=== PATIENT | female | born 1965 | race Caucasian/White ===

== ENCOUNTER 2017-11-23 06:41 | Emergency (ER) | payer OTHER ==
[2017-11-23] MEDS ORDERED: CEFTRIAXONE 250 MG/VIAL ONE (08:37)
[2017-11-23] MEDS ORDERED: AZITHROMYCIN 1 GM PACKET ONE (08:38)
[2017-11-23] MEDS ORDERED: metroNIDAZOLE 500 MG TABLET ONE (08:38)
[2017-11-23 09:41] LABS: Barbiturates NEGATIVE; Benzodiazepines NEGATIVE; Cocaine NEGATIVE; Opiates POSITIVE
[2017-11-23 09:47] LABS: METHAMPHETAM POSITIVE; Phencyclidine ND; THC Cannibis ND
[2017-11-23 09:48] LABS: Urine Blood NEGATIVE (NEG); Urine Glucose NEGATIVE (NEG); Urine Protein NEGATIVE (NEG); Urine pH 6.5 (5.0-7.0)
--- NOTE | 2017-11-23 09:50 | RAD REPORT ---
EXAM DESCRIPTION: Jeramie Single View11/23/2017 8:52 am CLINICAL HISTORY: Chest pain COMPARISON: none FINDINGS: The lungs appear clear of acute infiltrate. The heart is normal size IMPRESSION: No acute abnormalities displayed
[2017-11-23 10:26] LABS: Glucose Level 92 mg/dL (65-120)
[2017-11-23 10:29] LABS: Albumin 3.8 g/dL (3.2-5.5); Alkaline Phosphatase 99 IU/L (42-121); BUN Blood Urea Nitrogen 11 mg/dL (6-20); Bilirubin Total 1.1 mg/dL (0.3-1.2); Protein, Total 7.8 g/dL (6.0-8.3)
[2017-11-23 10:37] LABS: Absolute Lymphocytes (CBC) 2.2 K/uL (0.7-4.9); Absolute Monocytes 0.9 K/uL (0.1-1.3); Absolute Neutrophil 6.7 K/uL (1.8-8.0); Basophils % 0.7 % (0-1.3); Eosinophils % 1.1 % (0-4.4); Hematocrit 34.7 % (36.0-45.0); Lymphocytes % 22.1 % (15.3-44.8); MCH 31.6 pg (27.0-35.0); MPV 8.2 fL (7.6-11.3); Monocytes % 9.2 % (3.3-12.3); RBC Red Blood Cell Count 3.77 M/uL (3.86-4.86)
[2017-11-23 10:41] LABS: ALT/SGPT 34 IU/L (10-60); AST/SGOT 40 IU/L (10-42); Alcohol Serum/Plasma < 10 mg/dl; Bicarbonate 19 mEq/L (21-31); Sodium Level 139 mEq/L (135-145)
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
[2017-11-23] MEDS ORDERED: WATER FOR INJ,STERILE 10 ML ONE (11:18)
== END 2017-11-23 14:12 | disposition home or self-care (01) ==
LOC: ER 06:41
DX: Z04.41 Encounter for examination and observation following alleged adult rape (principal); R89.2 Abnormal level of other drugs, medicaments and biological substances in specimens from other organs, systems and tissues; J44.9 Chronic obstructive pulmonary disease, unspecified; Z88.0 Allergy status to penicillin; Z91.09 Other allergy status, other than to drugs and biological substances
CPT/HCPCS: 36415; 51702; 71045; 80053; 80307 ×7; 80320; 81003; 85025; 96372; 99285; J0696

== ENCOUNTER 2018-06-29 19:39 | Emergency (ER) | payer OTHER ==
--- OUTSIDE RECORDS SUMMARY | 2018-06-29 19:42 | XMS REPORT | Clinical Summary ---
:1965 Author Organization [facility] Address [address] [place] [address] Care Team Providers Name Role Phone Neftali Patiño MD Primary Care Provider Allergies Active Allergy Reactions Severity Noted Date Comments Zolpidem 01/07/2017 Benzocaine Anaphylaxis High 01/07/2017 Meperidine Rash Low 01/07/2017 Hydromorphone Rash Low 01/07/2017 Iodine Anaphylaxis High 01/07/2017 Penicillin G 01/07/2017 Benzonatate Anaphylaxis High 01/07/2017 Medications Medication Sig Dispensed Refills Start Date End Date Status metFORMIN Take 500 mg by 3 12/21/2016 Active (GLUCOPHAGE) 500 mg mouth daily with tablet breakfast. rosuvastatin Take 1 tablet in 3 11/09/2016 Active (CRESTOR) 20 MG the morning. tablet INCRUSE ELLIPTA INHALE 1 UNIT 3 11/30/2016 Active 62.5 mcg/actuation ONCE DAILY blister with device fluticasone-vilante Inhale 1 0 Active rol (BREO ELLIPTA) inhalations 200-25 mcg/dose daily. blister with device powder for inhalation ibuprofen Take 800 mg by 0 Active (ADVIL,MOTRIN) 800 mouth every 6 MG tablet (six) hours. ALBUTEROL SULFATE Inhale 3 mL 3 0 Active INHL (three) times a day. Follow up on strength FLUoxetine (PROzac) Take 20 mg by 0 Active 20 MG capsule mouth daily. lacosamide (VIMPAT) Take 100 mg by 0 Active 100 mg tablet mouth 2 (two) times a day. pantoprazole Take 40 mg by 0 Active (PROTONIX) 40 MG EC mouth daily. tablet divalproex TAKE 1 TABLET BY 1 12/12/2016 Discontinued (DEPAKOTE) 500 MG MOUTH TWICE 8 24 hr tablet DAILY fluticasone 2 sprays by Each 3 12/06/2016 Discontinued (FLONASE) 50 Nare route once 8 mcg/actuation nasal daily. spray ipratropium USE 2 SPRAYS IN 1 11/11/2016 Discontinued (ATROVENT) 0.06 % EACH NOSTRIL 8 nasal spray ONCE A DAY ondansetron ODT Take 8 mg by 0 Discontinued (ZOFRAN-ODT) 8 MG mouth every 8 8 disintegrating (eight) hours as tablet needed for nausea or vomiting. FLUoxetine (PROzac) Take 20 mg by 0 Discontinued 20 MG capsule mouth daily. 8 traZODone (DESYREL) Take 50 mg by 0 Discontinued 50 MG tablet mouth nightly as 8 needed for sleep. acetaminophen-codei Take 1 tablet by 0 Discontinued ne (TYLENOL WITH mouth every 4 8 CODEINE #3) 300-30 (four) hours as mg per tablet needed for moderate pain. traMADol (ULTRAM) Take 50 mg by 0 Discontinued 50 mg tablet mouth every 6 8 (six) hours as needed for moderate pain. cephalexin (KEFLEX) Take 500 mg by 0 Discontinued 500 MG capsule mouth 3 (three) 8 times a day. B complex-vitamin Take 1 tablet by 30 tablet 0 09/20/2017 C-folic acid mouth daily for 8 (FOLBEE PLUS 5 MG) 30 days. 5 mg tablet per tablet Active Problems Problem Noted Date Seizure 09/18/2017 Syncope and collapse 02/24/2017 Small bowel obstruction 01/07/2017 Encounters Date Type Specialty Care Team Description 09/18/2017 - Emergency General Internal Zachary Telles Seizure (Primary Dx); 09/20/2017 Medicine MD Josefina Syncope and collapse Raghavendra Alva MD Sodhi, Nidhi, MD after 06/28/2017 Family History Medical History Relation Name Comments Diabetes Father Heart disease Father Hyperlipidemia Father Hypertension Father COPD Mother Lung cancer Mother Relation Name Status Comments Father Mother Social History Tobacco Use Types Packs/Day Years Used Date Never Smoker Alcohol Use Drinks/Week oz/Week Comments No Sex Assigned at Date Recorded Not on file Job Start Date Occupation Industry Not on file Not on file Not on file Travel History Travel Start Travel End No recent travel history available. Last Filed Vital Signs Vital Sign Reading Time Taken Blood Pressure 112/71 09/20/2017 11:03 AM [employer] Pulse 66 09/20/2017 11:03 AM [employer] Temperature 36.7 C (98.1 F) 09/20/2017 11:03 AM [employer] Respiratory Rate 18 09/20/2017 11:03 AM [employer] Oxygen Saturation 95% 09/20/2017 11:03 AM [employer] Inhaled Oxygen Concentration - - Weight 86.2 kg (190 lb) 09/18/2017 5:29 PM [employer] Height 172.7 cm (5' 8") 09/18/2017 7:19 PM [employer] Body Mass Index 28.89 09/18/2017 5:29 PM [employer] Plan of Treatment Health Maintenance Due Date Last Done Comments MMR VACCINES (1 of 1 - Standard 1968 series) VARICELLA VACCINES (1 of 2 - 2-dose 1980 adolescent series) CERVICAL CANCER SCREENING 1988 BREAST CANCER SCREENING 2017 COLON CANCER SCREENING 2017 SHINGRIX VACCINE (1 of 2) 2017 INFLUENZA VACCINE 03/05/2018 HEPATITIS B VACCINES Aged Out No longer eligible based on patient's age to complete this topic IPV VACCINES Aged Out No longer eligible based on patient's age to complete this topic MENINGOCOCCAL VACCINE Aged Out No longer eligible based on patient's age to complete this topic Procedures Procedure Name Priority Date/Time Associated Comments Diagnosis CT HEAD WO CONTRAST Routine 09/19/2017 4:31 Results for this PM [employer] procedure are in the results section. EEG AWAKE/DROWSY LESS Routine 09/19/2017 9:53 Results for this THAN 41 MIN AM [employer] procedure are in the results section. AMMONIA LEVEL STAT 09/19/2017 8:50 Results for this AM [employer] procedure are in the results section. LIPASE LEVEL STAT 09/19/2017 8:50 Results for this AM [employer] procedure are in the results section. AMYLASE LEVEL STAT 09/19/2017 8:50 Results for this AM [employer] procedure are in the results section. LIPID PANEL STAT 09/19/2017 8:50 Results for this AM [employer] procedure are in the results section. HEMOGLOBIN A1C STAT 09/19/2017 8:50 Results for this AM [employer] procedure are in the results section. THYROID STIMULATING STAT 09/19/2017 8:50 Results for this HORMONE AM [employer] procedure are in the results section. VITAMIN B12 LEVEL STAT 09/19/2017 8:50 Results for this AM [employer] procedure are in the results section. MANUAL DIFFERENTIAL Routine 09/19/2017 5:20 Results for this AM [employer] procedure are in the results section. ZZESTIMATED GFR Routine 09/19/2017 5:20 Results for this AM [employer] procedure are in the results section. BASIC METABOLIC PANEL Routine 09/19/2017 5:20 Results for this AM [employer] procedure are in the results section. CBC WITH PLATELET AND Routine 09/19/2017 5:20 Results for this DIFFERENTIAL AM [employer] procedure are in the results section. CT LUMBAR SPINE WO STAT 09/18/2017 9:50 Results for this CONTRAST PM [employer] procedure are in the results section. URINALYSIS SCREEN AND Routine 09/18/2017 8:50 Results for this MICROSCOPY, WITH REFLEX PM [employer] procedure are in TO CULTURE the results section. URINE CULTURE Routine 09/18/2017 8:50 Results for this PM [employer] procedure are in the results section. CT HEAD WO CONTRAST STAT 09/18/2017 7:00 Results for this PM [employer] procedure are in the results section. ZZESTIMATED GFR STAT 09/18/2017 6:15 Results for this PM [employer] procedure are in the results section. COMPREHENSIVE METABOLIC STAT 09/18/2017 6:15 Results for this PANEL PM [employer] procedure are in the results section. HC COMPLETE BLD COUNT STAT 09/18/2017 6:15 Results for this W/AUTO DIFF PM [employer] procedure are in the results section. ECG ED PRELIMINARY Routine 09/18/2017 6:11 Results for this INTERPRETATION PM [employer] procedure are in the results section. ECG 12-LEAD STAT 09/18/2017 5:38 Results for this PM [employer] procedure are in the results section. after 06/28/[address] Head Wo Contrast (09/19/2017 4:31 PM [employer] GEOTECH[employer]ICAL ENG[employer]ER)Only the most recent of2 resultswithin the time period is included. Narrative Performed At EXAMINATION: CT HEAD WO CONTRAST HM [facility]IANT CLINICAL HISTORY: SEIZURES NEW OR PROGRESSIVE COMPARISON:Brain CT dated September 18, 2017. TECHNIQUE: Noncontrast enhanced images of the brain were obtained from the skull base to the vertex. Both soft tissue and bone reconstruction algorithms were performed.CT imaging was performed with iterative reconstruction technique and/or automated exposure control to reduce radiation dose. FINDINGS: There is no evidence of acute intracranial hemorrhage, intracranial mass, mass effect, midline shift or focal extra-axial collection. The hope-white matter differentiation appears preserved. No evidence of a confluent area of acute transcortical ischemia. The ventricles and extra-axial spaces have remained stable in appearance compared to the previous head CT. Beam hardening artifact obscures details at the level of the skull base, including portions of the supraorbital frontal lobes, inferior temporal lobes, brainstem and cerebellum. No acute soft tissue hematoma or laceration. Paranasal sinuses shows no acute air-fluid levels. Mastoid air cells are clear.No skull fractures or aggressive bony lesions. IMPRESSION: No acute intracranial abnormality identified. No significant interval change noted compared to the previous head CT performed September 18, 2017 at approximately 18:49 hours. [id number] Procedure Note Interface, Radiology Results Incoming - 09/19/2017 4:38 PM [employer] EXAMINATION: CT HEAD WO CONTRAST CLINICAL HISTORY: SEIZURES NEW OR PROGRESSIVE COMPARISON: Brain CT dated September 18, 2017. TECHNIQUE: Noncontrast enhanced images of the brain were obtained from the skull base to the vertex. Both soft tissue and bone reconstruction algorithms were performed. CT imaging was performed with iterative reconstruction technique and/or automated exposure control to reduce radiation dose. FINDINGS: There is no evidence of acute intracranial hemorrhage, intracranial mass, mass effect, midline shift or focal extra-axial collection. The hope-white matter differentiation appears preserved. No evidence of a confluent area of acute transcortical ischemia. The ventricles and extra-axial spaces have remained stable in appearance compared to the previous head CT. Beam hardening artifact obscures details at the level of the skull base, including portions of the supraorbital frontal lobes, inferior temporal lobes, brainstem and cerebellum. No acute soft tissue hematoma or laceration. Paranasal sinuses shows no acute air-fluid levels. Mastoid air cells are clear. No skull fractures or aggressive bony lesions. IMPRESSION: No acute intracranial abnormality identified. No significant interval change noted compared to the previous head CT performed September 18, 2017 at approximately 18:49 hours. [id number] Performing Organization Address City/State/Zipcode Phone Number [facility] [address] [place] [address] EEG (routine) (09/19/2017 9:53 AM CIVIL GEOTECHNICAL ENGINEER) Narrative Performed At Date of Study Completion: September 19, 2017 [facility] DEPARTMENT OF PATHOLOGY AND Date of Interpretation: September 19, 2017 GENOMIC MEDICINE Ordering Provider: Dr. Megan Castro Inpatient Electroencephalogram Report History: 52-year-old female being treated for seizures. Please evaluate the underlying cerebral activity and rule out interictal epileptiform discharges. Technical Description: The recording was started at 9:36 AM and ended at 9:57 AM on 09/19/2017. It was a digitally recorded multi-montage EEG with 21 electrodes placed according to the International 10/20 system. An EKG strip was recorded continuously. True eye leads were not employed.True temporal leads were not employed. EEG Description: When maximally aroused, the awake background was characterized by a symmetric posterior rhythm maximally measured at 9 to 10 Hz, 20 to 40 microvolts in amplitude that attenuated appropriately to eye opening. Superimposed beta frequency discharges were seen over the bilateral frontal pizarro. The patient becomes drowsy over the course of the recording as evidenced by the dropout of the posterior rhythm and the emergence of a diffuse irregular slow background activity. No definitive interictal epileptiform discharges or electrographic seizures were appreciated. Sleep Recording: Stage II sleep was not recorded. Activation Procedures: Hyperventilation was not attempted. Photic stimulation utilizing flash frequencies ranging from 5 to 30 Hz did not elicit a driving response. EEG Interpretation:This was an abnormal awake and drowsy EEG. 1. Superimposed beta. 2. No paroxysmal discharges were observed. Clinical Correlation: 1. The beta activity is most likely a medication effect (benzodiazepines). 2. There was no definitive evidence of interictal epileptiform discharges, electrographic seizures, or status epilepticus seen over the course of this limited tracing. Performing Organization Address [facility] Phone Number [facility] DEPARTMENT OF PATHOLOGY [address] [place] [address]. [place] [address] AND [facility] Thyroid stimulating hormone (09/19/2017 8:50 AM CIVIL GEOTECH[employer]ICAL ENG[employer]ER) TSH 0.89 0.27 - 4.20 uIU/mL [facility] DEPARTMENT OF PATHOLOGY AND [employer] [facility] Specimen Blood Performing Organization Address [facility] Phone Number [facility] DEPARTMENT OF PATHOLOGY [address] [place] [address] AND [employer] [facility] Lipase level (09/19/2017 8:50 AM CIVIL GEOTECHNICAL ENGINEER) Lipase 29 13 - 60 U/L [facility] DEPARTMENT OF PATHOLOGY AND [employer] [facility] Specimen Blood Performing Organization Address [facility] Phone Number [facility] DEPARTMENT OF PATHOLOGY [address] [place] [phone] AND [facility] Hemoglobin A1c (09/19/2017 8:50 AM CIVIL GEOTECH[employer]ICAL ENGINEER) Hemoglobin A1C 5.2 4.0 - 6.0 % [facility] DEPARTMENT OF PATHOLOGY Comment: AND [employer] MEDICINE Less than 6% - Goal of therapy for Type II Diabetes Less than 7%-Goal of therapy for Type I Diabetes Less than 8%-Acceptable control for Type I or Type II Diabetes Greater than 8%-Unacceptable control; action indicated. ([id number]) Specimen Blood Performing Organization Address City/State/Zipcode Phone Number [facility] DEPARTMENT OF PATHOLOGY [address] [place] [address]. [place] [address] AND [facility] Vitamin B12 level (09/19/2017 8:50 AM CIVIL GEOTECHNICAL ENGINEER) Vitamin B12 386 211 - 946 pg/mL [facility] DEPARTMENT OF PATHOLOGY Comment: AND [employer] MEDICINE Significant overlap exists between normal and deficiency states. However, most patients with deficiencies will have Serum B12 <200 pg/mL. Specimen Serum Performing Organization Address City/State/Zipcode Phone Number [facility] DEPARTMENT OF PATHOLOGY AND [address] [place] [id number] [facility] Amylase level (09/19/2017 8:50 AM CIVIL GEOTECHNICAL ENGINEER) Amylase 33 13 - 73 U/L [facility] DEPARTMENT OF PATHOLOGY AND GENOMIC MEDICINE Specimen Blood Performing Organization Address City/[facility]/Zipcode Phone Number [facility] DEPARTMENT OF PATHOLOGY [address] [place] [address] AND [facility] Ammonia level (09/19/2017 8:50 AM CIVIL GEOTECHNICAL ENGINEER) Ammonia 34 11 - 51 umol/L [facility] DEPARTMENT OF PATHOLOGY AND GENOMIC MEDICINE Specimen Plasma specimen Performing Organization Address City/State/Zipcode Phone Number [facility] DEPARTMENT OF PATHOLOGY [address] [place] [address] AND [employer] [facility] Lipid panel (09/19/2017 8:50 AM CIVIL GEOTECHNICAL ENGINEER) Cholesterol 183 0 - 199 mg/dL [facility] DEPARTMENT OF PATHOLOGY AND GENOMIC MEDICINE Triglycerides 95 0 - 149 mg/dL [facility] DEPARTMENT OF PATHOLOGY AND GENOMIC MEDICINE HDL cholesterol 41 40 - 99,999 [facility] DEPARTMENT OF mg/dL PATHOLOGY AND GENOMIC MEDICINE LDL cholesterol 121 (H) 0 - 99 mg/dL [facility] DEPARTMENT OF PATHOLOGY AND GENOMIC MEDICINE Lipid panel See below [facility] DEPARTMENT OF interpretation Comment: PATHOLOGY AND Total Cholesterol (mg/dL) GENOMIC MEDICINE <200 Desirable 537-245Mkiazxbvkf-wysr >=240High Triglycerides (mg/dL) <150 Normal 505-801Sxjxqbrqkw-mywx 200-499High >=500Very high HDL Cholesterol (mg/dL) <40Low (male) <50Low (female) LDL Cholesterol (mg/dL) <100 Optimal 100-129Near or above optimal 416-181Xcogvcyyoi-pbwi 160-189High >=190Very high Risk Catergories that modify LDL goals. Risk CatergoriesLDL goal (mg/dL) CHD and CHD risk equivalent<100 (10-year risk >20%) Multiple (2+) risk factors <130 (10-year risk=<20%) 0-1 risk factors <160 (<10-year risk) Defining levels of lipids in metabolic syndrome Triglycerides>=150 mg/dL HDL Cholesterol Men<40 mg/dL Women<50 mg/dL Non-HDL cholesterol is a second target for therapy in persons with high triglycerides (>=200 mg/dL) Specimen Blood Performing Organization Address City/State/Zipcode Phone Number [facility] DEPARTMENT OF PATHOLOGY [address] [place] [address] AND [employer] [facility] Estimated GFR (09/19/2017 5:20 AM CIVIL GEOTECHNICAL ENGINEER)Only the most recent of2 resultswithin the time period is included. GFR Non Af Amer 66 mL/min/1.73 m2 [facility] DEPARTMENT OF PATHOLOGY AND GENOMIC MEDICINE GFR Af Amer 80 mL/min/1.73 m2 [facility] DEPARTMENT OF Comment: PATHOLOGY AND GENOMIC Chronic kidney disease: <60 mL/min/1.73m2 MEDICINE Kidney failure: <15 mL/min/1.73m2 The estimated GFR is calculated from the IDMS-traceable Modification of Diet in Renal Disease Equation. The accuracy of the calculation is poor when the creatinine is normal. Calculated values >90 mL/min/1.73m2 are not reported. This equation has not been validated in children (<18 years), women, the elderly (>70 years), or ethnic groups other than Caucasians and Americans. Specimen Plasma specimen Performing Organization Address City/[facility]/Zipcode Phone Number [facility] DEPARTMENT OF PATHOLOGY [address] [place] [address] AND [employer] [facility] Manual differential (09/19/2017 5:20 AM CIVIL GEOTECHNICAL ENGINEER) Manual differential PERFORMED [facility] DEPARTMENT OF PATHOLOGY AND GENOMIC MEDICINE Neutrophils 33.0 (L) 39.0 - 69.0 % [facility] DEPARTMENT OF PATHOLOGY AND GENOMIC MEDICINE Lymphocytes 58.0 (H) 25.0 - 45.0 % [facility] DEPARTMENT OF PATHOLOGY AND GENOMIC MEDICINE Monocytes 6.0 0.0 - 10.0 % [facility] DEPARTMENT OF PATHOLOGY AND GENOMIC MEDICINE Eosinophils 4.0 0.0 - 5.0 % [facility] DEPARTMENT OF PATHOLOGY AND GENOMIC MEDICINE Basophils 0.0 0.0 - 1.0 % [facility] DEPARTMENT OF PATHOLOGY AND GENOMIC MEDICINE Platelet slide review Marcus adequate [facility] DEPARTMENT OF PATHOLOGY AND GENOMIC MEDICINE Anisocytosis Moderate [facility] DEPARTMENT OF PATHOLOGY AND GENOMIC MEDICINE Polychromasia Moderate [facility] DEPARTMENT OF PATHOLOGY AND GENOMIC MEDICINE Ovalocytes Moderate [facility] DEPARTMENT OF PATHOLOGY AND GENOMIC MEDICINE Smudge cells Few [facility] DEPARTMENT OF PATHOLOGY AND GENOMIC MEDICINE Performing Organization Address [facility] Phone Number [facility] DEPARTMENT OF PATHOLOGY [address] [place] [address] CBC with platelet and differential (09/19/2017 5:20 AM CIVIL GEOTECHNICAL ENGINEER)Only the most recent of2 resultswithin the time period is included. WBC 4.8 4.5 - 11.0 k/uL [facility] DEPARTMENT OF PATHOLOGY AND GENOMIC MEDICINE RBC 3.60 (L) 4.20 - 5.50 m/uL [facility] DEPARTMENT OF PATHOLOGY AND GENOMIC MEDICINE HGB 11.5 (L) 12.0 - 16.0 g/dL [facility] DEPARTMENT OF PATHOLOGY AND GENOMIC MEDICINE HCT 33.9 (L) 37.0 - 47.0 % [facility] DEPARTMENT OF PATHOLOGY AND GENOMIC MEDICINE MCV 94.2 82.0 - 100.0 fL [facility] DEPARTMENT OF PATHOLOGY AND GENOMIC MEDICINE MCH 31.9 27.0 - 34.0 pg [facility] DEPARTMENT OF PATHOLOGY AND GENOMIC MEDICINE MCHC 33.9 31.0 - 37.0 g/dL [facility] DEPARTMENT OF PATHOLOGY AND GENOMIC MEDICINE RDW - SD 44.2 37.0 - 55.0 fL [facility] DEPARTMENT OF PATHOLOGY AND GENOMIC MEDICINE MPV 9.9 6.9 - 11.0 fL [facility] DEPARTMENT OF PATHOLOGY AND GENOMIC MEDICINE Platelet count 219 150 - 400 K/uL [facility] DEPARTMENT OF PATHOLOGY AND GENOMIC MEDICINE Nucleated RBC 0.00 /100 WBC [facility] DEPARTMENT OF PATHOLOGY AND GENOMIC MEDICINE Neutrophils 33.0 (L) 39.0 - 69.0 % [facility] DEPARTMENT OF PATHOLOGY AND GENOMIC MEDICINE Lymphocytes 58.0 (H) 25.0 - 45.0 % [facility] DEPARTMENT OF PATHOLOGY AND GENOMIC MEDICINE Monocytes 6.0 0.0 - 10.0 % [facility] DEPARTMENT OF PATHOLOGY AND GENOMIC MEDICINE Eosinophils 4.0 0.0 - 5.0 % [facility] DEPARTMENT OF PATHOLOGY AND GENOMIC MEDICINE Basophils 0.0 0.0 - 1.0 % [facility] DEPARTMENT OF PATHOLOGY AND GENOMIC MEDICINE Specimen Blood Performing Organization Address City/[facility] Phone Number [facility] OF [facility]OLOG[facility] [address] [place] [address] [employer] [facility] Basic metabolic panel (09/19/2017 5:20 AM C[employer]IL GEOTECH[employer]ICAL ENGINEER) Sodium 141 135 - 148 mEq/L [facility] DEPARTMENT OF PATHOLOGY AND GENOMIC MEDICINE Potassium 3.9 3.5 - 5.0 mEq/L [facility] DEPARTMENT OF PATHOLOGY AND GENOMIC MEDICINE Chloride 104 98 - 112 mEq/L [facility] DEPARTMENT OF PATHOLOGY AND GENOMIC MEDICINE CO2 24 24 - 31 mEq/L [facility] DEPARTMENT OF PATHOLOGY AND GENOMIC MEDICINE Anion gap 13 7 - 15 mEq/L [facility] DEPARTMENT OF Comment: PATHOLOGY AND GENOMIC Starting from November , anion gap calculation MEDICINE no longer incorporates potassium. Please note the change. BUN 14 6 - 20 mg/dL [facility] DEPARTMENT OF PATHOLOGY AND GENOMIC MEDICINE Creatinine 0.9 0.5 - 0.9 mg/dL [facility] DEPARTMENT OF PATHOLOGY AND GENOMIC MEDICINE Glucose 92 65 - 99 mg/dL [facility] DEPARTMENT OF PATHOLOGY AND GENOMIC MEDICINE Calcium 9.2 8.3 - 10.2 mg/dL [facility] DEPARTMENT OF PATHOLOGY AND GENOMIC MEDICINE Specimen Plasma specimen Performing Organization Address [facility] Phone Number [facility] [facility] [id number] [place] [address] [employer] [facility] CT Lumbar Spine Wo Contrast (09/18/2017 9:50 PM CIVIL GEOTECHNICAL ENGINEER) Narrative Performed At EXAMINATION: CT LUMBAR SPINE WO CONTRAST RADIANT CLINICAL HISTORY: low back pain s p fall COMPARISON:None TECHNIQUE: Noncontrast enhanced imaging through the lumbar spine was performed with coronal and sagittal reconstructed images. CT scans are performed using radiation dose reduction techniques (iterative reconstruction and/or automated exposure control). Technical factors are evaluated and adjusted to ensure appropriate moderation of exposure. Automated dose management technology is applied to adjust radiation exposure while achieving a diagnostic quality image. FINDINGS: No acute fractures or subluxations. No soft tissue abnormalities are seen. Degenerative changes: There are degenerative disc bulges from L1 through S1, resulting in varying degrees of central stenosis. This is moderate to severe at L1-L2 and L2-L3, and otherwise mild. Additionally, the disc bulge/protrusion at L1-L2 involves and effaces the right lateral recess, probably involving the traversing nerve root. At other levels, the degenerative disc bulge appears to result foraminal stenosis which is mild to moderate. IMPRESSION: No acute osseous abnormality of the lumbar spine. Multilevel degenerative disc changes as described above. Most conspicuously, degenerative disc protrusion at L1-L2 results in moderate/severe central stenosis and appears to efface the right lateral recess. 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 Correlation with lumbar MRI may be of benefit if there are radicular or myelopathic symptoms. [facility]-[id number] Procedure Note [facility], Radiology Results Incoming - 09/18/2017 10:24 PM CIVIL GEOTECHNICAL ENGINEER EXAMINATION: CT LUMBAR SPINE WO CONTRAST CLINICAL HISTORY: low back pain s p fall COMPARISON: None TECHNIQUE: Noncontrast enhanced imaging through the lumbar spine was performed with coronal and sagittal reconstructed images. CT scans are performed using radiation dose reduction techniques (iterative reconstruction and/or automated exposure control). Technical factors are evaluated and adjusted to ensure appropriate moderation of exposure. Automated dose management technology is applied to adjust radiation exposure while achieving a diagnostic quality image. FINDINGS: No acute fractures or subluxations. No soft tissue abnormalities are seen. Degenerative changes: There are degenerative disc bulges from L1 through S1, resulting in varying degrees of central stenosis. This is moderate to severe at L1-L2 and L2-L3, and otherwise mild. Additionally, the disc bulge/protrusion at L1-L2 involves and effaces the right lateral recess, probably involving the traversing nerve root. At other levels, the degenerative disc bulge appears to result foraminal stenosis which is mild to moderate. IMPRESSION: No acute osseous abnormality of the lumbar spine. Multilevel degenerative disc changes as described above. Most conspicuously, degenerative disc protrusion at L1-L2 results in moderate/severe central stenosis and appears to efface the right lateral recess. 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 Correlation with lumbar MRI may be of benefit if there are radicular or myelopathic symptoms. [facility]-[id number] Performing Organization Address City/State/Zipcode Phone Number [facility] [address] [place] [address] Urinalysis screen and microscopy, with reflex to culture (09/18/2017 8:50 PM CIVIL GEOTECHNICAL ENGINEER) Specimen site Clean catch [facility] DEPARTMENT OF PATHOLOGY AND GENOMIC MEDICINE Color, UA Straw [facility] DEPARTMENT OF PATHOLOGY AND GENOMIC MEDICINE Appearance, UA Clear [facility] DEPARTMENT OF PATHOLOGY AND GENOMIC MEDICINE Specific gravity, UA 1.009 1.001 - 1.030 [facility] DEPARTMENT OF PATHOLOGY AND GENOMIC MEDICINE pH, UA 6.0 5.0 - 9.0 [facility] DEPARTMENT OF PATHOLOGY AND GENOMIC MEDICINE Protein, UA Negative Negative [facility] DEPARTMENT OF PATHOLOGY AND GENOMIC MEDICINE Glucose, UA Negative Negative [facility] DEPARTMENT OF PATHOLOGY AND GENOMIC MEDICINE Ketones, UA Negative Negative [facility] DEPARTMENT OF PATHOLOGY AND GENOMIC MEDICINE Bilirubin, UA Negative Negative [facility] DEPARTMENT OF PATHOLOGY AND GENOMIC MEDICINE Blood, UA Negative Negative [facility] DEPARTMENT OF PATHOLOGY AND GENOMIC MEDICINE Nitrite, UA Negative Negative [facility] DEPARTMENT OF PATHOLOGY AND GENOMIC MEDICINE Urobilinogen, UA <2.0 <2.0 E.U./dL [facility] DEPARTMENT OF PATHOLOGY AND GENOMIC MEDICINE Leukocyte esterase, UA Negative Negative [facility] DEPARTMENT OF PATHOLOGY AND GENOMIC MEDICINE Round epithelial cells, UA <1 0 - 5 /HPF [facility] DEPARTMENT OF PATHOLOGY AND GENOMIC MEDICINE WBC, UA <1 0 - 4 /HPF [facility] DEPARTMENT OF PATHOLOGY AND GENOMIC MEDICINE RBC, UA <1 0 - 2 /HPF [facility] DEPARTMENT OF PATHOLOGY AND GENOMIC MEDICINE Bacteria, UA None seen None seen [facility] DEPARTMENT OF PATHOLOGY AND GENOMIC MEDICINE Yeast, UA None seen [facility] DEPARTMENT OF PATHOLOGY AND GENOMIC MEDICINE Yeast with pseudohyphae, UA None seen [facility] DEPARTMENT OF PATHOLOGY AND GENOMIC MEDICINE Specimen Urine Performing Organization Address City/[facility]/Zipcode Phone Number [facility] DEPARTMENT OF PATHOLOGY [address] [place] [address] AND [employer] [facility] Urine culture (09/18/2017 8:50 PM CIVIL GEOTECHNICAL ENGINEER) Urine culture SEE COMMENTComment: Bacteriuria [facility] DEPARTMENT OF PATHOLOGY screen negative. AND GENOMIC MEDICINE Performing Organization Address City/[facility]/Zipcode Phone Number [facility] DEPARTMENT OF PATHOLOGY [address] [place] [address] AND [employer] [facility] Comprehensive metabolic panel (09/18/2017 6:15 PM CIVIL GEOTECHNICAL ENGINEER) Sodium 137 135 - 148 mEq/L [facility] DEPARTMENT OF PATHOLOGY AND GENOMIC MEDICINE Potassium 4.0 3.5 - 5.0 mEq/L [facility] DEPARTMENT OF PATHOLOGY AND GENOMIC MEDICINE Chloride 99 98 - 112 mEq/L [facility] DEPARTMENT OF PATHOLOGY AND GENOMIC MEDICINE CO2 24 24 - 31 mEq/L [facility] DEPARTMENT OF PATHOLOGY AND GENOMIC MEDICINE Anion gap 14 7 - 15 mEq/L [facility] DEPARTMENT OF Comment: PATHOLOGY AND GENOMIC Starting from November , anion gap calculation MEDICINE no longer incorporates potassium. Please note the change. BUN 16 6 - 20 mg/dL [facility] DEPARTMENT OF PATHOLOGY AND GENOMIC MEDICINE Creatinine 1.1 (H) 0.5 - 0.9 mg/dL [facility] DEPARTMENT OF PATHOLOGY AND GENOMIC MEDICINE Glucose 92 65 - 99 mg/dL [facility] DEPARTMENT OF PATHOLOGY AND GENOMIC MEDICINE Calcium 9.7 8.3 - 10.2 mg/dL [facility] DEPARTMENT OF PATHOLOGY AND GENOMIC MEDICINE Protein 7.5 6.3 - 8.3 g/dL [facility] DEPARTMENT OF PATHOLOGY AND GENOMIC MEDICINE Albumin 4.3 3.5 - 5.0 g/dL [facility] DEPARTMENT OF PATHOLOGY AND GENOMIC MEDICINE A/G ratio 1.3 0.7 - 3.8 [facility] DEPARTMENT OF PATHOLOGY AND GENOMIC MEDICINE Alkaline phosphatase 63 35 - 104 U/L [facility] DEPARTMENT OF PATHOLOGY AND GENOMIC MEDICINE AST 26 10 - 35 U/L [facility] DEPARTMENT OF PATHOLOGY AND GENOMIC MEDICINE ALT 13 5 - 50 U/L [facility] DEPARTMENT OF PATHOLOGY AND GENOMIC MEDICINE Total bilirubin 0.3 0.2 - 1.2 mg/dL [facility] DEPARTMENT OF PATHOLOGY AND GENOMIC MEDICINE Specimen Plasma specimen Performing Organization Address City/State/Zipcode Phone Number [facility] DEPARTMENT OF PATHOLOGY [address] [place] [address] AND [employer] [facility] ECG ED Preliminary Interpretation - NOT AN ORDER (09/18/2017 6:11 PM CIVIL GEOTECHNICAL ENGINEER) Narrative Performed At Zachary Telles MD 09/21/20177:30 AM ECG ED Preliminary Interpretation - Not an Order Performed by: ZACHARY TELLES Authorized by: ZACHARY TELLES ECG reviewed by ED Physician in the absence of a ore dressing engineer: yes Interpretation: Interpretation: non-specific Rate: ECG rate:76 ECG rate assessment: normal Rhythm: Rhythm: sinus rhythm Ectopy: Ectopy: none QRS: QRS axis:Normal QRS intervals:Normal Conduction: Conduction: normal ST segments: ST segments:Normal T waves: T waves: non-specific and inverted Inverted:III and V3 ECG 12 lead (09/18/2017 5:38 PM CIVIL GEOTECHNICAL ENGINEER) Ventricular rate 76 [facility] Atrial rate 76 [facility] CO interval 152 [facility] QRSD interval 90 [facility] QT interval 402 [facility] QTC interval 452 [facility] P axis 1 62 [facility] QRS axis 1 72 [facility] T wave axis 6 [facility] EKG impression Normal sinus rhythm-Nonspecific ST and T wave [facility] MUSE abnormality-In automated comparison with ECG of 24-FEB-2017 09:40,-No significant change was found- Performing Organization Address City/State/Zipcode Phone Number [facility] [address] [place] [address] after 06/28/2017 Insurance Payer Benefit Plan / Group Subscriber ID Type Phone Address [facility] xxxxxxxx O [facility] [employer] xxxxxxxxx O [phone] [place] [address] Advance Directives Patient has advance care planning documents, and code status on file. For more information, please contact:Stew Kwong[address] [place] [address] Code Status Date Activated Date Inactivated Comments Full Code 09/18/2017 11:23 PM 09/20/2017 6:50 PM Code Status decision reached by: Patient
--- OUTSIDE RECORDS SUMMARY | 2018-06-29 19:43 | XMS REPORT | Clinical Summary ---
:1965 Author Organization [facility] Address [address] [place] [address] Care Team Providers Name Role Phone Pcp, No Primary Care Provider Unavailable Allergies Active Allergy Reactions Severity Noted Date Comments Zolpidem 10/29/2016 Atorvastatin 10/29/2016 Meperidine 10/29/2016 Hydromorphone 10/29/2016 Iodine And Iodide Containing Products 10/29/2016 Penicillins 10/29/2016 Budesonide-Formoterol 10/29/2016 Benzonatate 10/29/2016 Medications Medication Sig Dispensed Refills Start Date End Date Status metFORMIN (GLUCOPHAGE) Take 500 mg by 0 Active 500 MG tablet mouth daily with breakfast. rosuvastatin (CRESTOR) Take 10 mg by 0 Active 10 MG tablet mouth daily. divalproex (DEPAKOTE) Take 500 mg by 0 Active 500 MG EC tablet mouth 2 (two) times daily. ALBUTEROL INHL Inhale by mouth 0 Active via inhaler. Active Problems Not on file Social History Tobacco Use Types Packs/Day Years Used Date Never Smoker Alcohol Use Drinks/Week oz/Week Comments No Sex Assigned at Date Recorded Not on file Job Start Date Occupation Industry Not on file Not on file Not on file Travel History Travel Start Travel End No recent travel history available. Last Filed Vital Signs Not on file Plan of Treatment Not on file Results Not on fileafter 06/28/2017 Insurance Payer Benefit Plan / Group Subscriber ID Type Phone Address [facility] MEDICARE [facility] xxxxxxxx [place] MED[place] xxxxxxxxx
--- OUTSIDE RECORDS SUMMARY | 2018-06-29 19:45 | XMS REPORT ---
:1965 [facility] [address] [place] [address] Care Team Providers Name Role Phone NEHEMIAH, DR ROMO Unavailable Unavailable DARÍO CONTI Unavailable Unavailable ROOPA, DR URBINA Unavailable Unavailable GORE, DR ALVAREZ Unavailable Unavailable CUELLO, DR HULL Unavailable Unavailable HOSSAIN, DR LISA SANTIZO Unavailable Unavailable OJIAKU, DR JUNG Unavailable Unavailable HERRERA, MS COWART E Unavailable Unavailable BARBA, DR KAYLEIGH Ballesteros Unavailable Unavailable NEHEMIAH, DR ANISH Alvarez Unavailable Unavailable OEILEONIDES Unavailable Unavailable TIFFANIE, DR POPE Unavailable Unavailable Problems This patient has no known problems. Allergies, Adverse Reactions, Alerts This patient has no known allergies or adverse reactions. Medications This patient has no known medications. Encounters Start End Encounter Admission Attending Care Care Encounter Date/Time Date/Time Type Type Clinicians Facility Department ID 2018-06-07 2018-06-07 Emergency E NEHEMIAH [facility] [id number] 17:26:00 18:40:00 DEMETRIUS 2018-05-14 2018-05-14 Emergency E SUSHILA [facility] [id number] 13:30:00 14:35:00 DARÍO 2018-05-07 2018-05-08 Emergency E CARLITOS BLAS [facility] [id number] 21:59:00 00:45:00 2018-04-17 2018-04-17 Emergency E SUSHILA [facility] [id number] 17:02:00 19:49:00 DARÍO 2018-04-13 2018-04-13 Emergency E CARLITOS BLAS [facility] [id number] 04:29:00 05:42:00 2018-03-25 2018-03-25 Emergency E NEHEMIAH [facility] [id number] 13:29:00 17:49:00 DEMETRIUS 2018-03-17 2018-03-20 Inpatient E CORAL [facility] TELE [id number] 00:32:00 17:10:00 ANTONIO 2018-03-14 2018-03-14 Emergency E DELLA CUELLO [facility] [id number] 19:10:00 19:38:00 2018-02-16 2018-02-16 Emergency E KELLE, [facility] [id number] 08:08:00 09:43:00 GONZALEZ 2017-12-06 2017-12-07 Emergency E NICCI, [facility] [id number] 17:59:00 02:30:00 ERICH 2017-10-29 2017-10-29 Emergency E SUSHILA, [facility] [id number] 20:03:00 23:00:00 DARÍO 2017-10-21 2017-10-21 Emergency E JAVIER, [facility] [id number] 17:18:00 18:31:00 SUPA 2017-08-14 2017-08-14 Outpatient C JAMESON, [facility] [id number] 10:09:00 23:59:00 KAYLEIGH 2017-07-28 2017-07-28 Emergency E ANISH CERNA [facility] [id number] 13:30:00 15:20:00 2017-02-18 2017-02-18 Emergency E DELLA CUELLO [facility] [id number] 10:00:00 10:50:00 2016-07-04 2016-07-07 Inpatient E TIFFANIE, [facility] [id number] 13:15:00 16:58:00 TOSHIA Results Test Description Test Time Test Comments Text Results Atomic Results Result Comments DIRECT CHLAMYDIA EXAM 2018-05-23 13:21:00 Test Item Value Reference Range Comments CHLAMYDIA TRACHOMATIS (test NOT DETECTED NOT DETECTED sbnx=[id number]) NEISSERIA GONORRHOEAE (test NOT DETECTED NOT DETECTED cbwa=[id number]) Endnote (test urzz=[id number]) This test was performed using the APTIMA COMBO2 Assay([employer]The analytical performance characteristics of thisassay, when used to test SurePath specimens havebeen determined by [facility].TEST PERFORMED AT:[facility] [address] [id number] MARIE M.D. URINE [id number] 09:39:00 Test Item Value Reference Range Comments Isolate 1 (test code=ISO1) Escherichia coli ampicillin (test code=am) ug/mL piperacillin/tazobactam (test code=tzp) ug/mL ceftazidime (test code=nevilel) ug/mL ceftriaxone1 (test code=ctr) ug/mL cefepime (test code=fep) ug/mL aztreonam (test code=azm) ug/mL ertapenem (test code=etp) ug/mL meropenem (test code=mem) ug/mL gentamicin (test code=gm) ug/mL tobramycin (test code=tob) ug/mL levofloxacin (test code=lev) ug/mL trimethoprim/sulfamethoxazole (test ug/mL code=sxt) COMPREHENSIVE METABOLIC [id number] 23:06:00 Test Item Value Reference Range Comments GLUCOSE (test code=06D) 104 mg/dL 75-100 SODIUM (test code=01A) 141 mmol/L 136-145 POTASSIUM (test code=01B) 3.5 mmol/L 3.6-5.1 CHLORIDE (test code=04A) 107 mmol/L 98-107 CO2 (test code=02A) 26 mmol/L 22-32 ANION GAP (test code=ANG) 11.5 mmol/L BUN (test code=05D) 17 mg/dL 7-18 CREATININE (test code=03E) 1.0 mg/dL 0.4-1.1 BUN/CREA (test code=BCR) 17 12-20 CALCIUM (test code=09D) 8.6 mg/dL 8.3-9.5 BILI TOTAL (test code=11A) 0.2 mg/dL 0.2-1.0 PROTEIN (test code=07D) 6.6 g/dL 6.4-8.2 ALBUMIN (test code=08D) 3.0 g/dL 3.5-4.8 GLOBULIN (test code=GLB) 3.6 g/dL 1.5-3.8 ALB/GLOB (test code=AGRR) 0.8 1.0-2.6 ALK PHOS (test code=35A) 75 IU/L 42-121 AST (test code=30A) 38 IU/L <=42 ALT (test code=31A) 40 IU/L <=78 [id number] 23:01:00 Test Item Value Reference Range Comments MAGNESIUM (test code=48A) 1.9 mg/dL 1.8-2.4 URINALYSIS WITH [id number] 22:58:00 Test Item Value Reference Range Comments COLOR (test code=COLU) ORANGE YELLOW CLARITY (test code=CLA) CLOUDY CLEAR GLUCOSE UR (test code=UA GLUCOSE) NEGATIVE NEGATIVE BILI UR (test code=BILE) 1+ NEGATIVE KETONES UR (test code=AMELIA) TRACE NEGATIVE SP GRAVITY (test code=SPGR) 1.033 1.005-1.030 PH UR (test code=PH) 6.0 4.5-8.0 PROTEIN UR (test code=PU) TRACE NEGATIVE UROBIL UR (test code=UROQ) 1.0 EU/dL 0.2-1.0 NITRITE UR (test code=NITRITE) POSITIVE NEGATIVE BLOOD UR (test code=UA BLOOD) NEGATIVE NEGATIVE LEUK ES UR (test code=LEUK) 2+ NEGATIVE WBC UR (test code=UWBC) 25 /HPF 0-5 RBC UR (test code=URBC) 2 /HPF 0-2 EPITH UR (test code=UEPC) FEW /LPF FEW BACTERIA UR (test code=UBACT) MANY /HPF NONE CAST UR (test code=CAST) /LPF NONE CRYSTAL UR (test code=CRYU) / LPF NONE MUCUS UR (test code=MUC) / HPF NONE AMORPH UR (test code=BRANDON) / HPF NONE TRICH UR (test code=UTRICH) /HPF NONE YEAST UR (test code=UY) /HPF NONE SPERM UR (test code=USPERM) /HPF NONE CBC (INCLUDES AUTOMATED DIFFERENTIAL)2018-05-20 22:55:00 Test Item Value Reference Range Comments WBC (test code=WBC) 7.4 10\S\3/uL 4.5-11.0 RBC (test code=RBC) 3.72 10\S\6/uL 4.20-5.60 HGB (test code=HBG) 11.4 g/dL 12.0-15.5 HCT (test code=HCT) 36.6 % 35.0-44.0 MCV (test code=MCV) 98.4 fL 81.0-99.0 MCH (test code=MCH) 30.6 pg 27.0-31.0 MCHC (test code=MCHC) 31.1 g/dL 32.0-36.0 RDW (test code=RDW) 12.6 % 11.5-14.5 PLT (test code=PLT) 302 10\S\3/uL 130-400 MPV (test code=MPV) 9.3 fL 9.4-12.4 NEUTROP # (test code=NE#) 2.9 10\S\3/uL 1.6-8.0 LYMPH # (test code=LY#) 3.5 10\S\3/uL 1.1-3.5 MONOCYTE # (test code=MO#) 0.6 10\S\3/uL 0.0-1.1 EOSINOPH # (test code=EO#) 0.2 10\S\3/uL 0.0-0.7 BASOPHIL # (test code=BA#) 0.0 10\S\3/uL 0.0-0.3 IG # (test code=IG#) 0.07 10\S\3/uL 0.00-0.06 NRBC # (test code=NRBC#) 0.00 10\S\3/uL 0.00-0.01 NEUTROPH % (test code=NE%) 39.4 % 35.0-73.0 LYMPH % (test code=LY%) 47.9 % 20.0-55.0 MONO % (test code=MO%) 8.2 % 2.5-10.0 EOSINOPH % (test code=EO%) 3.0 % 0.0-5.0 BASOPHIL % (test code=BA%) 0.5 % 0.0-2.0 IG % (test code=IG%) 1.0 % 0.0-0.8 NRBC% (test code=NRBC%) 0.0 % 0.0-0.2 MANDIFF (test code=MDIFF) NO NO RBC MORPH (test code=RBCMOR) NORMAL WET [id number] 22:55:00 Test Item Value Reference Range Comments Direct Exam (test code=DE1) NO TRICHOMONAS SEEN NO YEAST NO CLUE CELLS SEEN FEW WHITE BLOOD CELLS SEEN URINE [id number] 22:53:00 Test Item Value Reference Range Comments PREG UR (test code=PGU) NEGATIVE NEGATIVE DRUGS OF [id number] 00:03:00 Test Item Value Reference Range Comments DRUG SCRN (test code=HDOA) URINE DRUG SCREEN This is an unconfirmed screening result and should not be used for non-medical purposes CANNABINOD (test code=88C) Negative NEGATIVE AMPHETAMINE (test code=84A) Negative NEGATIVE BENZODIAZP (test code=86A) Negative NEGATIVE BARBITURAT (test code=85A) Negative NEGATIVE OPIATES (test code=92B) Negative NEGATIVE COCAINE (test code=87A) Negative NEGATIVE PHENCYCLID (test code=66A) Negative NEGATIVE METHADONE (test code=64A) Negative NEGATIVE DOAH (test code=DOAH) URINE DRUG CREEN CUT OFF VALUES Amphetamines 1000 ng/mL Barbituates 300 ng/mL Benzodiazepines 300 ng/mL Cocaine 300 ng/mL Opiates 300 ng/mL Phencyclidine 25 ng/mL THC 50 ng/mL Tricyclic Antidepressants 1000 ng/mL CBC WITH [id number] 23:54:00 Test Item Value Reference Range Comments WBC (test code=WBC) 9.5 10\S\3/uL 4.5-11.0 RBC (test code=RBC) 3.52 10\S\6/uL 4.20-5.60 HGB (test code=HBG) 11.1 g/dL 12.0-15.5 HCT (test code=HCT) 33.2 % 35.0-44.0 MCV (test code=MCV) 94.3 fL 81.0-99.0 MCH (test code=MCH) 31.5 pg 27.0-31.0 MCHC (test code=MCHC) 33.4 g/dL 32.0-36.0 RDW (test code=RDW) 12.9 % 11.5-14.5 PLT (test code=PLT) 194 10\S\3/uL 130-400 MPV (test code=MPV) 9.5 fL 9.4-12.4 NEUTROP # (test code=NE#) 5.2 10\S\3/uL 1.6-8.0 LYMPH # (test code=LY#) 3.3 10\S\3/uL 1.1-3.5 MONOCYTE # (test code=MO#) 0.8 10\S\3/uL 0.0-1.1 EOSINOPH # (test code=EO#) 0.1 10\S\3/uL 0.0-0.7 BASOPHIL # (test code=BA#) 0.0 10\S\3/uL 0.0-0.3 IG # (test code=IG#) 0.02 10\S\3/uL 0.00-0.06 NRBC # (test code=NRBC#) 0.00 10\S\3/uL 0.00-0.01 NEUTROPH % (test code=NE%) 55.1 % 35.0-73.0 LYMPH % (test code=LY%) 35.0 % 20.0-55.0 MONO % (test code=MO%) 8.5 % 2.5-10.0 EOSINOPH % (test code=EO%) 0.9 % 0.0-5.0 BASOPHIL % (test code=BA%) 0.3 % 0.0-2.0 IG % (test code=IG%) 0.2 % 0.0-0.8 NRBC% (test code=NRBC%) 0.0 % 0.0-0.2 PLT EST (test code=PLTEST) ADEQUATE ADEQUATE PLT MORPH (test code=PLTMOR) NORMAL (1.5-3 um) NORMAL no clumps seen THYROID PANEL/SCREEN (TSH)2018-05-07 23:43:00 Test Item Value Reference Range Comments TSH (test code=A57) 2.250 uIU/mL 0.358-3.740 BRAIN NATRIURETIC [id number] 23:31:00 Test Item Value Reference Range Comments proBNP (test code=PBNP) 95 pg/mL 0-125 COMPREHENSIVE METABOLIC [id number] 23:29:00 Test Item Value Reference Range Comments GLUCOSE (test code=06D) 95 mg/dL 75-100 SODIUM (test code=01A) 138 mmol/L 136-145 POTASSIUM (test code=01B) 4.0 mmol/L 3.6-5.1 CHLORIDE (test code=04A) 107 mmol/L 98-107 CO2 (test code=02A) 25 mmol/L 22-32 ANION GAP (test code=ANG) 10.0 mmol/L BUN (test code=05D) 15 mg/dL 7-18 CREATININE (test code=03E) 1.1 mg/dL 0.4-1.1 BUN/CREA (test code=BCR) 14 12-20 CALCIUM (test code=09D) 8.3 mg/dL 8.3-9.5 BILI TOTAL (test code=11A) 0.3 mg/dL 0.2-1.0 PROTEIN (test code=07D) 6.6 g/dL 6.4-8.2 ALBUMIN (test code=08D) 3.5 g/dL 3.5-4.8 GLOBULIN (test code=GLB) 3.1 g/dL 1.5-3.8 ALB/GLOB (test code=AGRR) 1.1 1.0-2.6 ALK PHOS (test code=35A) 77 IU/L 42-121 AST (test code=30A) 20 IU/L <=42 ALT (test code=31A) 31 IU/L <=78 ALCOHOL BLOOD (ETOH)2018-05-07 23:28:00 Test Item Value Reference Range Comments ETOH (test code=HALC) ETHANOL The result is to be used only for medical purposes ALCOHOL (test code=56A) <10 mg/dL <=10 AMMONIA [id number] 23:27:00 Test Item Value Reference Range Comments AMMONIA (test code=54A) 25 umol/L 11-32 [id number] 23:26:00 Test Item Value Reference Range Comments MAGNESIUM (test code=48A) 2.2 mg/dL 1.8-2.4 AMYLASE AND [id number] 23:25:00 Test Item Value Reference Range Comments AMYLASE (test code=10A) 77 U/L 28-100 LIPASE (test code=60A) 174 IU/L 73-393 PRO TIME AND [id number] 23:23:00 Test Item Value Reference Range Comments PT (test code=TT) 10.1 s 9.8-13.6 INR (test code=INR) 0.9 INRH (test code=INRH) SUGGESTED THERAPEUTIC RANGE FOR INR: 2.5 - 3.5 For Patients with Prosthetic Valves or Patients with recurrent Thromboembolic Events 2.0 - 3.0 For Most Other Applications PTT (test code=PTT) 22.2 s 20.2-38.0 PTTH (test code=PTTH) To monitor the effectiveness of heparin, we offer the Anti-Xa (Heparin Assay). It can be used for either unfractionated or LMW Heparin. Order Code is ANTI-XA CT CERVICAL SPINE W/O [id number] 22:31:19Exam: CT C-spine.Location: F1Cslprgz: [id number]: SeizureTechnique: Unenhanced spiral slices were taken through the cervical spine.Sagittal and coronal reformations were performed. One or more of the followingradiation dose reduction techniques was used: automated exposure control,adjustment of mA and/or KV according to patient size , and/or utilization ofiterative reconstruction technique.Findings:No fracture or dislocation is seen. The bony cortices are intact. Spondyloticmarginal osteophyte formation is seen at C5-C6. The vertebral bodiesdemonstrate normal heights and alignment.C1-C2: Unremarkable.C2-C3: No canal stenosis or foraminal narrowing.C3-C4: No canal stenosis or foraminal narrowing.C4-C5: No canal stenosis or foraminal narrowing.C5-C6: A 3 mm posterior osteophyte-disc complex is present resulting in mildcanal stenosis. The neural foramina are patent.C6-C7 : No canal stenosis or foraminal narrowing.C7-T1: No canal stenosis or foraminal narrowing.Impression:1. Spondylosis/osteoarthritis.2. Mild canal stenosis C5-C6.3. Otherwise unremarkable exam.CT HEAD W/O [id number] 22: 29:19Location: T18CT head, conducted on 05/07/2018COMPARISON EXAMS:Head CT exam of 03/25/2018 TECHNIQUE: CTexamination of the brain was performed without contrast on [facility] scanner. Scanning conducted fromskull base to vertex in the axialplane acquiring contiguous 5mm slice thickness . The examination was performedon a uptake at helical CT scanner utilizing low-dose radiation technique. Automatic exposure control timing was utilized to minimize radiation dose.CLINICAL HISTORY: Seizure eventFINDINGS: No positive mass-effect, midline shift, extra-axial fluid collections orintracranial hemorrhages seen.In particular, no subarachnoid hemorrhage isidentified. No intra or extra-axial masses. Bone windowsunremarkable. Nosignificant sinus disease is noted. No acute territorial infarction is seen. Nofocalarea of encephalomalacia is identified.IMPRESSION: Unremarkable CT examination of the brain without contrastTHYROID PANEL/SCREEN (TSH)2018-04-17 19:30:00 Test Item Value Reference Range Comments TSH (test code=A57) 1.680 uIU/mL 0.358-3.740 BRAIN NATRIURETIC [id number] 19:18:00 Test Item Value Reference Range Comments proBNP (test code=PBNP) 304 pg/mL 0-125 COMPREHENSIVE METABOLIC [id number] 19:11:00 Test Item Value Reference Range Comments GLUCOSE (test code=06D) 112 mg/dL 75-100 SODIUM (test code=01A) 140 mmol/L 136-145 POTASSIUM (test code=01B) 4.6 mmol/L 3.6-5.1 CHLORIDE (test code=04A) 105 mmol/L 98-107 CO2 (test code=02A) 27 mmol/L 22-32 ANION GAP (test code=ANG) 12.6 mmol/L BUN (test code=05D) 13 mg/dL 7-18 CREATININE (test code=03E) 0.9 mg/dL 0.4-1.1 BUN/CREA (test code=BCR) 15 12-20 CALCIUM (test code=09D) 8.4 mg/dL 8.3-9.5 BILI TOTAL (test code=11A) 0.2 mg/dL 0.2-1.0 PROTEIN (test code=07D) 6.5 g/dL 6.4-8.2 ALBUMIN (test code=08D) 3.4 g/dL 3.5-4.8 GLOBULIN (test code=GLB) 3.1 g/dL 1.5-3.8 ALB/GLOB (test code=AGRR) 1.1 1.0-2.6 ALK PHOS (test code=35A) 69 IU/L 42-121 AST (test code=30A) 22 IU/L <=42 ALT (test code=31A) 23 IU/L <=78 CARDIAC [id number] 19:09:00 Test Item Value Reference Range Comments TROPONIN I (test code=A84) <0.015 ng/mL 0.000-0.045 CKMB (test code=A49) 1.1 ng/mL <=3.6 CPK (test code=32A) 72 IU/L 26-192 SERUM [id number] 19:01:00 Test Item Value Reference Range Comments PREG SRM (test code=PGS) NEGATIVE NEGATIVE PRO TIME AND [id number] 18:57:00 Test Item Value Reference Range Comments PT (test code=TT) 9.7 s 9.8-13.6 INR (test code=INR) 0.9 INRH (test code=INRH) SUGGESTED THERAPEUTIC RANGE FOR INR: 2.5 - 3.5 For Patients with Prosthetic Valves or Patients with recurrent Thromboembolic Events 2.0 - 3.0 For Most Other Applications PTT (test code=PTT) 22.4 s 20.2-38.0 PTTH (test code=PTTH) To monitor the effectiveness of heparin, we offer the Anti-Xa (Heparin Assay). It can be used for either unfractionated or LMW Heparin. Order Code is ANTI-XA CBC (INCLUDES AUTOMATED DIFFERENTIAL)2018-04-17 18:49:00 Test Item Value Reference Range Comments WBC (test code=WBC) 6.7 10\S\3/uL 4.5-11.0 RBC (test code=RBC) 3.31 10\S\6/uL 4.20-5.60 HGB (test code=HBG) 10.3 g/dL 12.0-15.5 HCT (test code=HCT) 32.3 % 35.0-44.0 MCV (test code=MCV) 97.6 fL 81.0-99.0 MCH (test code=MCH) 31.1 pg 27.0-31.0 MCHC (test code=MCHC) 31.9 g/dL 32.0-36.0 RDW (test code=RDW) 13.0 % 11.5-14.5 PLT (test code=PLT) 205 10\S\3/uL 130-400 MPV (test code=MPV) 9.2 fL 9.4-12.4 NEUTROP # (test code=NE#) 3.4 10\S\3/uL 1.6-8.0 LYMPH # (test code=LY#) 2.6 10\S\3/uL 1.1-3.5 MONOCYTE # (test code=MO#) 0.6 10\S\3/uL 0.0-1.1 EOSINOPH # (test code=EO#) 0.2 10\S\3/uL 0.0-0.7 BASOPHIL # (test code=BA#) 0.0 10\S\3/uL 0.0-0.3 IG # (test code=IG#) 0.02 10\S\3/uL 0.00-0.06 NRBC # (test code=NRBC#) 0.00 10\S\3/uL 0.00-0.01 NEUTROPH % (test code=NE%) 50.9 % 35.0-73.0 LYMPH % (test code=LY%) 37.8 % 20.0-55.0 MONO % (test code=MO%) 8.2 % 2.5-10.0 EOSINOPH % (test code=EO%) 2.4 % 0.0-5.0 BASOPHIL % (test code=BA%) 0.4 % 0.0-2.0 IG % (test code=IG%) 0.3 % 0.0-0.8 NRBC% (test code=NRBC%) 0.0 % 0.0-0.2 MANDIFF (test code=MDIFF) NO NO RBC MORPH (test code=RBCMOR) NORMAL XR CHEST 1 VIEW [id number] 17:39:28Portable chestClinical indication: Chest painComparison: 04/13/2018Location C3Wyndt are clear. Heart, mediastinum and bony structures are unremarkable.Impression: No acute cardiopulmonary abnormalityXR RIBS RIGHT UNIL 3VW W/PA [id number] 05:35:08XR RIBS RIGHT UNIL 3VW W/PA CHESTLocation:G1Bssnf hours services provided 04/13/2018 5:28 AMIndication:[id number]: Traumatic injuryComparison:03/25/18indings:The lungs are equally and symmetrically inflated. The trachea ismidline. The cardiac silhouette is normal in size. No acute bony abnormality.Impression:No acute abnormalityXR HUMERUS LEFT AP & [id number] 05:27:47XR HUMERUS LEFT AP & amp; LATLocation:P10Rvxki hours services provided04/13/2018 5:26 AMIndication: [id number]: Traumatic injuryComparison:10/21/17indings:No acute fracture or dislocation. Joint spaces are preserved. Bonymineralization appears normal. The soft tissues are radiographically normal.Impression:No acute bony abnormality.Venous Blood [id number] 18:23:00 Test Item Value Reference Range Comments VpH (test code=VPHRT) 7.380 7.300-7.400 VpCO2 (test code=IYPM9PU) 36.5 mmHg 40.0-50.0 VpO2 (test code=VPO2RT) 36.2 mmHg 30.0-40.0 HCO3? (test code=HCO3) 21.1 mmol/L 22.0-26.0 JAMES (test code=JAMES) -3.1 mmol/L -3.0-3.0 tHb (test code=THBRT) 8.8 g/dL 12.0-15.5 vsO2 (test code=VSO2RT) 67.0 % 55.0-75.0 FO2Hb (test code=BC6XZTWX) 65.7 % FCOHb (test code=FCOHBRTV) 0.8 % FMetHb (test code=FMETHBRTV) 1.2 % ABGTEMP (test code=ABGTEMP) * Temp Corrected Values* ABGTEMP (test code=ABGTEMP.) 37.0 ?C pH (T) (test code=PHTEMPV) 7.380 7.300-7.400 pCO2 (T) (test code=SNN9MMOLM) 36.5 mmHg 40.0-50.0 pO2 (T) (test code=AC1IMYBB) 36.2 mmHg 30.0-40.0 Device (test code=DEVICE) ROOM AIR FI02 (test code=FI02) 21.0 % Liter_flow (test code=LF) VENPAR (test code=VENPAR) * Ventilator Parameters * SIMV (test code=SIMV) A/C (test code=A/C) CPAP (test code=CPAP) PEEP (test code=PEEP) PS (test code=PS) PIP (test code=PIP) I_Time (test code=ITIME) Vt (test code=VT) BIPAP INSP (test code=BIPAPINP) BIPAP EXP (test code=BIPAPEXP) SAMPLE SITE (test code=SSITE) Vein COMMENT (test code=CO) DRUGS OF [id number] 16:27:00 Test Item Value Reference Range Comments DRUG SCRN (test code=HDOA) URINE DRUG SCREEN This is an unconfirmed screening result and should not be used for non-medical purposes CANNABINOD (test code=88C) Negative NEGATIVE AMPHETAMINE (test code=84A) Negative NEGATIVE BENZODIAZP (test code=86A) Negative NEGATIVE BARBITURAT (test code=85A) Negative NEGATIVE OPIATES (test code=92B) Negative NEGATIVE COCAINE (test code=87A) Negative NEGATIVE PHENCYCLID (test code=66A) Negative NEGATIVE METHADONE (test code=64A) Negative NEGATIVE DOAH (test code=DOAH) URINE DRUG SCREEN Cut-off values are as follows: ---- Cannabinoids 50 ng/mL Cocaine 300 ng/mL Amphetamines 1000 ng/mL Phencyclidine 25 ng/mL Benzodiazepines 200 ng.mL Methadone 300 ng/mL Barbiturates 200 ng/mL Opiates 2000 ng/mL URINALYSIS WITH [id number] 16:18:00 Test Item Value Reference Range Comments COLOR (test code=COLU) YELLOW YELLOW CLARITY (test code=CLA) CLEAR CLEAR GLUCOSE UR (test code=UA GLUCOSE) NEGATIVE NEGATIVE BILI UR (test code=BILE) NEGATIVE NEGATIVE KETONES UR (test code=AMELIA) NEGATIVE NEGATIVE SP GRAVITY (test code=SPGR) 1.026 1.005-1.030 PH UR (test code=PH) 6.5 4.5-8.0 PROTEIN UR (test code=PU) NEGATIVE NEGATIVE UROBIL UR (test code=UROQ) 0.2 EU/dL 0.2-1.0 NITRITE UR (test code=NITRITE) NEGATIVE NEGATIVE BLOOD UR (test code=UA BLOOD) NEGATIVE NEGATIVE LEUK ES UR (test code=LEUK) 1+ NEGATIVE WBC UR (test code=UWBC) 6 /HPF 0-5 RBC UR (test code=URBC) 0 /HPF 0-2 EPITH UR (test code=UEPC) FEW /LPF FEW BACTERIA UR (test code=UBACT) NONE /HPF NONE CAST UR (test code=CAST) /LPF NONE CRYSTAL UR (test code=CRYU) / LPF NONE MUCUS UR (test code=MUC) / HPF NONE AMORPH UR (test code=BRANDON) / HPF NONE TRICH UR (test code=UTRICH) /HPF NONE YEAST UR (test code=UY) /HPF NONE SPERM UR (test code=USPERM) /HPF NONE COMPREHENSIVE METABOLIC [id number] 15:16:00 Test Item Value Reference Range Comments GLUCOSE (test code=06D) 94 mg/dL 75-100 SODIUM (test code=01A) 137 mmol/L 136-145 POTASSIUM (test code=01B) 4.5 mmol/L 3.6-5.1 CHLORIDE (test code=04A) 103 mmol/L 98-107 CO2 (test code=02A) 29 mmol/L 22-32 ANION GAP (test code=ANG) 9.5 mmol/L BUN (test code=05D) 18 mg/dL 7-18 CREATININE (test code=03E) 0.8 mg/dL 0.4-1.1 BUN/CREA (test code=BCR) 22 12-20 CALCIUM (test code=09D) 8.5 mg/dL 8.3-9.5 BILI TOTAL (test code=11A) 0.2 mg/dL 0.2-1.0 PROTEIN (test code=07D) 6.5 g/dL 6.4-8.2 ALBUMIN (test code=08D) 3.3 g/dL 3.5-4.8 GLOBULIN (test code=GLB) 3.2 g/dL 1.5-3.8 ALB/GLOB (test code=AGRR) 1.0 1.0-2.6 ALK PHOS (test code=35A) 74 IU/L 42-121 AST (test code=30A) 14 IU/L <=42 ALT (test code=31A) 19 IU/L <=78 THYROID PANEL/SCREEN (TSH)2018-03-25 15:15:00 Test Item Value Reference Range Comments TSH (test code=A57) 1.030 uIU/mL 0.358-3.740 LACTIC [id number] 15:09:00 Test Item Value Reference Range Comments LACTIC ACD (test code=LA) 0.8 mmol/L 0.4-2.0 CARDIAC [id number] 15:07:00 Test Item Value Reference Range Comments TROPONIN I (test code=A84) <0.015 ng/mL 0.000-0.045 CKMB (test code=A49) <1.0 ng/mL <=3.6 CPK (test code=32A) 43 IU/L 26-192 XR CHEST 1 VIEW [id number] 14:44:55Exam: Chest portable erectLocation: B0Elqbted: Z95.828: PRESENCE OF OTHER VASCULAR IMPLANTS AND GRAFTSComparison: .Findings:A right internal jugular line is in place, the tip is in the superior venacava. No pneumothorax is seen. No change has occurred in the aeration of thelungs. The heart size is normal. The mediastinal silhouette is unremarkable.The bony thorax is intact. Impression:1. Satisfactory line placement.2. Otherwise stable chest.CBC (INCLUDES AUTOMATED DIFFERENTIAL)2018-03 14:44:00 Test Item Value Reference Range Comments WBC (test code=WBC) 6.1 10\S\3/uL 4.5-11.0 RBC (test code=RBC) 3.46 10\S\6/uL 4.20-5.60 HGB (test code=HBG) 11.0 g/dL 12.0-15.5 HCT (test code=HCT) 32.9 % 35.0-44.0 MCV (test code=MCV) 95.1 fL 81.0-99.0 MCH (test code=MCH) 31.8 pg 27.0-31.0 MCHC (test code=MCHC) 33.4 g/dL 32.0-36.0 RDW (test code=RDW) 12.4 % 11.5-14.5 PLT (test code=PLT) 211 10\S\3/uL 130-400 MPV (test code=MPV) 9.1 fL 9.4-12.4 NEUTROP # (test code=NE#) 2.6 10\S\3/uL 1.6-8.0 LYMPH # (test code=LY#) 2.5 10\S\3/uL 1.1-3.5 MONOCYTE # (test code=MO#) 0.7 10\S\3/uL 0.0-1.1 EOSINOPH # (test code=EO#) 0.3 10\S\3/uL 0.0-0.7 BASOPHIL # (test code=BA#) 0.1 10\S\3/uL 0.0-0.3 IG # (test code=IG#) 0.01 10\S\3/uL 0.00-0.06 NRBC # (test code=NRBC#) 0.00 10\S\3/uL 0.00-0.01 NEUTROPH % (test code=NE%) 43.0 % 35.0-73.0 LYMPH % (test code=LY%) 40.3 % 20.0-55.0 MONO % (test code=MO%) 10.8 % 2.5-10.0 EOSINOPH % (test code=EO%) 4.7 % 0.0-5.0 BASOPHIL % (test code=BA%) 1.0 % 0.0-2.0 IG % (test code=IG%) 0.2 % 0.0-0.8 NRBC% (test code=NRBC%) 0.0 % 0.0-0.2 MANDIFF (test code=MDIFF) NO NO RBC MORPH (test code=RBCMOR) NORMAL CT HEAD W/O [id number] 14:04:44CT brain without contrastLocation code: [id number] HISTORY: R42: DIZZINESS AND GIDDINESS COMPARISON: 2017TECHNIQUE: Routine unenhanced axial imaging of the brain was performed.Coronal and sagittal reformatted images were obtained, as well. Automaticexposure control was utilized. Total DLP: 770 mGycmFINDINGS: There is no acute intracranial hemorrhage or extra-axial collection.There is no hydrocephalus, midline shift, or space occupying mass. Chaudhary-whitematter differentiation is well preservedwith no definite CT evidence of anacute infarct. The cranial vault and skull base are intact. Theparanasal sinuses and mastoidair cells are pneumatized and well aerated. IMPRESSION: No acute intracranial abnormality.XR CHEST 1 VIEW [id number] 14:04:29Exam: AP chestLocation: X1Wnpwksp: R42: DIZZINESS AND GIDDINESSComparison: 2017Findings:The lungs are clear. No infiltrate or effusion is seen. The pulmonaryvasculature is normal. The heart size is normal. The mediastinal silhouette isunremarkable. The bony thorax is intact.Impression:No acute disease.ALDOSTERONE [id number] 09:17:00 Test Item Value Reference Range Comments ALDOSTERONE LC/MS/MS 2 ng/dL Adult Reference Ranges for (test ucsr=[id number]) Aldosterone, LC/MS/MS: Upright 8:00-10:00 am < or=28 ng/dL Upright 4:00-6:00 pm < or=21 ng/dL Supine 8:00-10:00 am 3-16 ng/dLThis test was developed and its analytical performancecharacteristics have been determined by [facility]. It has not beencleared or approved by FDA. This assay has been validatedpursuant to the CLIA regulations and is used for clinicalpurposes.TEST PERFORMED AT:Assert[facility] [id number] [place] [address]FKEFUEILEEN HAIDER MD,PHD,ANN RENIN [id number] 10:17:00 Test Item Value Reference Range Comments PLASMA RENIN 0.35 ng/mL/h 0.25-5.82 This test was developed and its ACTIVITY,LC/MS/MS analytical performancecharacteristics (test have been determined by [employer] [id number]) [facility]. It has not beencleared or approved by FDA. This assay has been validatedpursuant to the CLIA regulations and is used for clinicalpurposes.TEST PERFORMED AT:[facility] [id number] [place] [address]IIGKKEILEEN HAIDER MD,PHD,ANN [id number] 09:39:00 Test Item Value Reference Range Comments ACTH, PLASMA (test 72 pg/mL 6-50 Reference range applies only to the msum=[id number]) specimens collectedbetween 7am-10am.TEST PERFORMED AT:[facility] [id number] [address] [facility] [place] [address]DDTBIEILEEN HAIDER MD,PHD,ANN BLOOD [id number] 07:35:00 Test Item Value Reference Range Comments Culture Observations (test code=COB1) NO GROWTH AFTER 5 DAYS BLOOD [id number] 07:35:00 Test Item Value Reference Range Comments Culture Observations (test code=COB1) NO GROWTH AFTER 5 DAYS GLUCOMETER GLUCOSE- LAB USE [id number] 10:26:00 Test Item Value Reference Range Comments GLUCOMETER (test code=GMG) 118 mg/dL 70-100 Meter ID: [id number]: [id number] KANWAL DEMPSEY GLUCOMETER GLUCOSE- LAB USE [id number] 05:18:00 Test Item Value Reference Range Comments GLUCOMETER (test code=GMG) 142 mg/dL 70-100 CLEANED METERMeter ID: [id number]: [id number] CINDY MG BASIC METABOLIC [id number] 04:20:00 Test Item Value Reference Range Comments GLUCOSE (test code=06D) 131 mg/dL 75-100 SODIUM (test code=01A) 138 mmol/L 136-145 POTASSIUM (test code=01B) 3.8 mmol/L 3.6-5.1 CHLORIDE (test code=04A) 104 mmol/L 98-107 CO2 (test code=02A) 29 mmol/L 22-32 ANION GAP (test code=ANG) 8.8 mmol/L BUN (test code=05D) 13 mg/dL 7-18 CREATININE (test code=03E) 0.7 mg/dL 0.4-1.1 BUN/CREA (test code=BCR) 18 12-20 CALCIUM (test code=09D) 8.4 mg/dL 8.3-9.5 CBC (INCLUDES AUTOMATED DIFFERENTIAL)2018-03-20 03:59:00 Test Item Value Reference Range Comments WBC (test code=WBC) 4.1 10\S\3/uL 4.5-11.0 RBC (test code=RBC) 3.25 10\S\6/uL 4.20-5.60 HGB (test code=HBG) 10.4 g/dL 12.0-15.5 HCT (test code=HCT) 30.7 % 35.0-44.0 MCV (test code=MCV) 94.5 fL 81.0-99.0 MCH (test code=MCH) 32.0 pg 27.0-31.0 MCHC (test code=MCHC) 33.9 g/dL 32.0-36.0 RDW (test code=RDW) 12.1 % 11.5-14.5 PLT (test code=PLT) 152 10\S\3/uL 130-400 MPV (test code=MPV) 9.6 fL 9.4-12.4 NEUTROP # (test code=NE#) 3.3 10\S\3/uL 1.6-8.0 LYMPH # (test code=LY#) 0.7 10\S\3/uL 1.1-3.5 MONOCYTE # (test code=MO#) 0.1 10\S\3/uL 0.0-1.1 EOSINOPH # (test code=EO#) 0.0 10\S\3/uL 0.0-0.7 BASOPHIL # (test code=BA#) 0.0 10\S\3/uL 0.0-0.3 IG # (test code=IG#) 0.01 10\S\3/uL 0.00-0.06 NRBC # (test code=NRBC#) 0.00 10\S\3/uL 0.00-0.01 NEUTROPH % (test code=NE%) 79.5 % 35.0-73.0 LYMPH % (test code=LY%) 17.6 % 20.0-55.0 MONO % (test code=MO%) 2.7 % 2.5-10.0 EOSINOPH % (test code=EO%) 0.0 % 0.0-5.0 BASOPHIL % (test code=BA%) 0.0 % 0.0-2.0 IG % (test code=IG%) 0.2 % 0.0-0.8 NRBC% (test code=NRBC%) 0.0 % 0.0-0.2 MANDIFF (test code=MDIFF) NO NO RBC MORPH (test code=RBCMOR) NORMAL GLUCOMETER GLUCOSE- LAB USE [id number] 20:41:00 Test Item Value Reference Range Comments GLUCOMETER (test code=GMG) 125 mg/dL 70-100 Meter ID: [id number]: 5015 THOR DOWELLOLOLA GLUCOMETER GLUCOSE- LAB USE [id number] 15:36:00 Test Item Value Reference Range Comments GLUCOMETER (test code=GMG) 107 mg/dL 70-100 Meter ID: [id number]: 5930 AWA TRIPATHI CORTISOL [id number] 12:16:00 Test Item Value Reference Range Comments CORTISOL (test code=A10) 23.30 ug/dL 3.44-22.54 CORTISOL [id number] 11:48:00 Test Item Value Reference Range Comments CORTISOL (test code=A10) 17.20 ug/dL 3.44-22.54 CORTISOL [id number] 11:42:00 Test Item Value Reference Range Comments CORTISOL (test code=A10) 13.70 ug/dL 3.44-22.54 GLUCOMETER GLUCOSE- LAB USE [id number] 11:12:00 Test Item Value Reference Range Comments GLUCOMETER (test code=GMG) 122 mg/dL 70-100 Meter ID: [id number]: 5930 AWA DEUCE GLUCOMETER GLUCOSE- LAB USE [id number] 07:43:00 Test Item Value Reference Range Comments GLUCOMETER (test code=GMG) 98 mg/dL 70-100 Meter ID: [id number]: 5930 AWA TRIPATHI BASIC METABOLIC [id number] 06:34:00 Test Item Value Reference Range Comments GLUCOSE (test code=06D) 84 mg/dL 75-100 SODIUM (test code=01A) 141 mmol/L 136-145 POTASSIUM (test code=01B) 4.2 mmol/L 3.6-5.1 CHLORIDE (test code=04A) 106 mmol/L 98-107 CO2 (test code=02A) 29 mmol/L 22-32 ANION GAP (test code=ANG) 10.2 mmol/L BUN (test code=05D) 11 mg/dL 7-18 CREATININE (test code=03E) 0.8 mg/dL 0.4-1.1 BUN/CREA (test code=BCR) 14 12-20 CALCIUM (test code=09D) 8.6 mg/dL 8.3-9.5 CBC (INCLUDES AUTOMATED DIFFERENTIAL)2018-03-19 06:22:00 Test Item Value Reference Range Comments WBC (test code=WBC) 4.0 10\S\3/uL 4.5-11.0 RBC (test code=RBC) 3.20 10\S\6/uL 4.20-5.60 HGB (test code=HBG) 10.1 g/dL 12.0-15.5 HCT (test code=HCT) 30.7 % 35.0-44.0 MCV (test code=MCV) 95.9 fL 81.0-99.0 MCH (test code=MCH) 31.6 pg 27.0-31.0 MCHC (test code=MCHC) 32.9 g/dL 32.0-36.0 RDW (test code=RDW) 12.2 % 11.5-14.5 PLT (test code=PLT) 152 10\S\3/uL 130-400 MPV (test code=MPV) 9.4 fL 9.4-12.4 NEUTROP # (test code=NE#) 1.8 10\S\3/uL 1.6-8.0 LYMPH # (test code=LY#) 1.7 10\S\3/uL 1.1-3.5 MONOCYTE # (test code=MO#) 0.4 10\S\3/uL 0.0-1.1 EOSINOPH # (test code=EO#) 0.2 10\S\3/uL 0.0-0.7 BASOPHIL # (test code=BA#) 0.0 10\S\3/uL 0.0-0.3 IG # (test code=IG#) 0.00 10\S\3/uL 0.00-0.06 NRBC # (test code=NRBC#) 0.00 10\S\3/uL 0.00-0.01 NEUTROPH % (test code=NE%) 43.6 % 35.0-73.0 LYMPH % (test code=LY%) 42.1 % 20.0-55.0 MONO % (test code=MO%) 9.4 % 2.5-10.0 EOSINOPH % (test code=EO%) 4.7 % 0.0-5.0 BASOPHIL % (test code=BA%) 0.2 % 0.0-2.0 IG % (test code=IG%) 0.0 % 0.0-0.8 NRBC% (test code=NRBC%) 0.0 % 0.0-0.2 MANDIFF (test code=MDIFF) NO NO RBC MORPH (test code=RBCMOR) NORMAL GLUCOMETER GLUCOSE- LAB USE [id number] 20:19:00 Test Item Value Reference Range Comments GLUCOMETER (test code=GMG) 157 mg/dL 70-100 CLEANED METERMeter ID: [id number]: 0484 FER MOULTON GLUCOMETER GLUCOSE- LAB USE [id number] 16:18:00 Test Item Value Reference Range Comments GLUCOMETER (test code=GMG) 101 mg/dL 70-100 CLEANED METERMeter ID: [id number]: 9511 STEPHAN MERCEDES GLUCOMETER GLUCOSE- LAB USE [id number] 11:51:00 Test Item Value Reference Range Comments GLUCOMETER (test code=GMG) 120 mg/dL 70-100 CLEANED METERMeter ID: [id number]: 9511 STEPHAN MERCEDES CORTISOL [id number] 09:02:00 Test Item Value Reference Range Comments CORTISOL (test code=A10) 4.20 ug/dL 3.44-22.54 GLUCOMETER GLUCOSE- LAB USE [id number] 07:47:00 Test Item Value Reference Range Comments GLUCOMETER (test code=GMG) 86 mg/dL 70-100 CLEANED METERMeter ID: [id number]: 9511 STEPHAN MERCEDES CARDIAC [id number] 06:02:00 Test Item Value Reference Range Comments TROPONIN I (test code=A84) <0.015 ng/mL 0.000-0.045 CKMB (test code=A49) <1.0 ng/mL <=3.6 CPK (test code=32A) 84 IU/L 26-192 [id number] 06:01:00 Test Item Value Reference Range Comments Hb A1C % (test code=HBA) 5.3 % 4.2-6.3 LIPID [id number] 05:57:00 Test Item Value Reference Range Comments CHOLESTROL (test code=44A) 203 mg/dL 140-200 TRIGLYCERI (test code=42B) 116 mg/dL <=149 HDL (test code=83D) 43.0 mg/dL 40.0-60.0 LDL (test code=34B) 143 mg/dL <=99 CHL/HDL (test code=CHR) 4.7 0.0-3.4 BASIC METABOLIC [id number] 05:50:00 Test Item Value Reference Range Comments GLUCOSE (test code=06D) 87 mg/dL 75-100 SODIUM (test code=01A) 140 mmol/L 136-145 POTASSIUM (test code=01B) 4.2 mmol/L 3.6-5.1 CHLORIDE (test code=04A) 106 mmol/L 98-107 CO2 (test code=02A) 29 mmol/L 22-32 ANION GAP (test code=ANG) 9.2 mmol/L BUN (test code=05D) 9 mg/dL 7-18 CREATININE (test code=03E) 0.9 mg/dL 0.4-1.1 BUN/CREA (test code=BCR) 10 12-20 CALCIUM (test code=09D) 8.5 mg/dL 8.3-9.5 CBC (INCLUDES AUTOMATED DIFFERENTIAL)2018-03-18 05:31:00 Test Item Value Reference Range Comments WBC (test code=WBC) 4.8 10\S\3/uL 4.5-11.0 RBC (test code=RBC) 3.31 10\S\6/uL 4.20-5.60 HGB (test code=HBG) 10.3 g/dL 12.0-15.5 HCT (test code=HCT) 32.2 % 35.0-44.0 MCV (test code=MCV) 97.3 fL 81.0-99.0 MCH (test code=MCH) 31.1 pg 27.0-31.0 MCHC (test code=MCHC) 32.0 g/dL 32.0-36.0 RDW (test code=RDW) 12.5 % 11.5-14.5 PLT (test code=PLT) 151 10\S\3/uL 130-400 MPV (test code=MPV) 9.5 fL 9.4-12.4 NEUTROP # (test code=NE#) 1.9 10\S\3/uL 1.6-8.0 LYMPH # (test code=LY#) 2.3 10\S\3/uL 1.1-3.5 MONOCYTE # (test code=MO#) 0.4 10\S\3/uL 0.0-1.1 EOSINOPH # (test code=EO#) 0.2 10\S\3/uL 0.0-0.7 BASOPHIL # (test code=BA#) 0.0 10\S\3/uL 0.0-0.3 IG # (test code=IG#) 0.01 10\S\3/uL 0.00-0.06 NRBC # (test code=NRBC#) 0.00 10\S\3/uL 0.00-0.01 NEUTROPH % (test code=NE%) 38.6 % 35.0-73.0 LYMPH % (test code=LY%) 47.7 % 20.0-55.0 MONO % (test code=MO%) 8.3 % 2.5-10.0 EOSINOPH % (test code=EO%) 4.4 % 0.0-5.0 BASOPHIL % (test code=BA%) 0.8 % 0.0-2.0 IG % (test code=IG%) 0.2 % 0.0-0.8 NRBC% (test code=NRBC%) 0.0 % 0.0-0.2 MANDIFF (test code=MDIFF) NO NO RBC MORPH (test code=RBCMOR) NORMAL GLUCOMETER GLUCOSE- LAB USE [id number] 20:54:00 Test Item Value Reference Range Comments GLUCOMETER (test code=GMG) 132 mg/dL 70-100 Meter ID: [id number]: 5304 NIVIA CHAPARRO GLUCOMETER GLUCOSE- LAB USE [id number] 16:18:00 Test Item Value Reference Range Comments GLUCOMETER (test code=GMG) 112 mg/dL 70-100 Meter ID: [id number]: 5942 MORENO BEXLEY GLUCOMETER GLUCOSE- LAB USE [id number] 12:21:00 Test Item Value Reference Range Comments GLUCOMETER (test code=GMG) 106 mg/dL 70-100 Meter ID: [id number]: 5942 MORENO BEXLEY T4 [id number] 11:50:00 Test Item Value Reference Range Comments T4 FREE (test code=A91) 0.81 ng/dL 0.76-1.46 THYROID PANEL/SCREEN (TSH)2018-03-17 11:38:00 Test Item Value Reference Range Comments TSH (test code=A57) 5.300 uIU/mL 0.358-3.740 BASIC METABOLIC [id number] 06:17:00 Test Item Value Reference Range Comments GLUCOSE (test code=06D) 91 mg/dL 75-100 SODIUM (test code=01A) 141 mmol/L 136-145 POTASSIUM (test code=01B) 4.4 mmol/L 3.6-5.1 CHLORIDE (test code=04A) 109 mmol/L 98-107 CO2 (test code=02A) 25 mmol/L 22-32 ANION GAP (test code=ANG) 11.4 mmol/L BUN (test code=05D) 13 mg/dL 7-18 CREATININE (test code=03E) 1.0 mg/dL 0.4-1.1 BUN/CREA (test code=BCR) 13 12-20 CALCIUM (test code=09D) 8.0 mg/dL 8.3-9.5 [id number] 06:15:00 Test Item Value Reference Range Comments D-DIMER (test code=DDI) 376 ng/mL D-DU 0-234 D-DIMER COMMENT (test *Level to rule out DVT or PE: code=DDCOM) <235 ng/mL D-DU* CBC (INCLUDES AUTOMATED DIFFERENTIAL)2018-03-17 06:08:00 Test Item Value Reference Range Comments WBC (test code=WBC) 6.4 10\S\3/uL 4.5-11.0 RBC (test code=RBC) 3.40 10\S\6/uL 4.20-5.60 HGB (test code=HBG) 10.8 g/dL 12.0-15.5 HCT (test code=HCT) 32.8 % 35.0-44.0 MCV (test code=MCV) 96.5 fL 81.0-99.0 MCH (test code=MCH) 31.8 pg 27.0-31.0 MCHC (test code=MCHC) 32.9 g/dL 32.0-36.0 RDW (test code=RDW) 12.6 % 11.5-14.5 PLT (test code=PLT) 190 10\S\3/uL 130-400 MPV (test code=MPV) 9.8 fL 9.4-12.4 NEUTROP # (test code=NE#) 2.4 10\S\3/uL 1.6-8.0 LYMPH # (test code=LY#) 3.0 10\S\3/uL 1.1-3.5 MONOCYTE # (test code=MO#) 0.7 10\S\3/uL 0.0-1.1 EOSINOPH # (test code=EO#) 0.3 10\S\3/uL 0.0-0.7 BASOPHIL # (test code=BA#) 0.0 10\S\3/uL 0.0-0.3 IG # (test code=IG#) 0.01 10\S\3/uL 0.00-0.06 NRBC # (test code=NRBC#) 0.00 10\S\3/uL 0.00-0.01 NEUTROPH % (test code=NE%) 37.3 % 35.0-73.0 LYMPH % (test code=LY%) 46.9 % 20.0-55.0 MONO % (test code=MO%) 10.8 % 2.5-10.0 EOSINOPH % (test code=EO%) 4.2 % 0.0-5.0 BASOPHIL % (test code=BA%) 0.6 % 0.0-2.0 IG % (test code=IG%) 0.2 % 0.0-0.8 NRBC% (test code=NRBC%) 0.0 % 0.0-0.2 MANDIFF (test code=MDIFF) NO NO RBC MORPH (test code=RBCMOR) NORMAL XR CHEST 1 VIEW [id number] 00:37:30Examination: Chest one viewLocation code: U7Kkzndohbjd: Chest 12/06/17Discussion:Clinical history is remarkable for Central venous catheter insertion. Rightinternal jugular central venous catheter is in good position terminating in thesuperior vena cava. Heart is enlarged. Mild central congestion is noted.Impression:Mild congestion.LACTIC [id number] 00:16:00 Test Item Value Reference Range Comments LACTIC ACD (test code=LA) 0.5 mmol/L 0.4-2.0 [id number] 22:51:00 Test Item Value Reference Range Comments COLOR (test code=COLU) YELLOW YELLOW CLARITY (test code=CLA) CLEAR CLEAR GLUCOSE UR (test code=UA GLUCOSE) NEGATIVE NEGATIVE BILI UR (test code=BILE) NEGATIVE NEGATIVE KETONES UR (test code=AMELIA) NEGATIVE NEGATIVE SP GRAVITY (test code=SPGR) 1.012 1.005-1.030 PH UR (test code=PH) 6.0 4.5-8.0 PROTEIN UR (test code=PU) NEGATIVE NEGATIVE UROBIL UR (test code=UROQ) 0.2 EU/dL 0.2-1.0 NITRITE UR (test code=NITRITE) NEGATIVE NEGATIVE BLOOD UR (test code=UA BLOOD) NEGATIVE NEGATIVE LEUK ES UR (test code=LEUK) NEGATIVE NEGATIVE XR CHEST 1 VIEW [id number] 21:54:29Examination: Chest one viewLocation code: A1Smltsnrnhj: Chest 12/06/17Discussion:Clinical history is remarkable for fall. Cardiac silhouette is normal in size.Mild congestion is present, no consolidation, effusion, or pneumothorax ispresent.Impression:Mild congestion.CARDIAC [id number] 21:12:00 Test Item Value Reference Range Comments TROPONIN I (test code=A84) <0.015 ng/mL 0.000-0.045 CKMB (test code=A49) 2.1 ng/mL <=3.6 CPK (test code=32A) 142 IU/L 26-192 BASIC METABOLIC [id number] 21:11:00 Test Item Value Reference Range Comments GLUCOSE (test code=06D) 112 mg/dL 75-100 SODIUM (test code=01A) 138 mmol/L 136-145 POTASSIUM (test code=01B) 4.2 mmol/L 3.6-5.1 CHLORIDE (test code=04A) 106 mmol/L 98-107 CO2 (test code=02A) 23 mmol/L 22-32 ANION GAP (test code=ANG) 13.2 mmol/L BUN (test code=05D) 18 mg/dL 7-18 CREATININE (test code=03E) 1.2 mg/dL 0.4-1.1 BUN/CREA (test code=BCR) 15 12-20 CALCIUM (test code=09D) 8.8 mg/dL 8.3-9.5 PRO TIME AND [id number] 21:03:00 Test Item Value Reference Range Comments PT (test code=TT) 10.4 s 9.8-13.6 INR (test code=INR) 0.9 INRH (test code=INRH) SUGGESTED THERAPEUTIC RANGE FOR INR: 2.5 - 3.5 For Patients with Prosthetic Valves or Patients with recurrent Thromboembolic Events 2.0 - 3.0 For Most Other Applications PTT (test code=PTT) 25.5 s 20.2-38.0 PTTH (test code=PTTH) To monitor the effectiveness of heparin, we offer the Anti-Xa (Heparin Assay). It can be used for either unfractionated or LMW Heparin. Order Code is ANTI-XA CBC (INCLUDES AUTOMATED DIFFERENTIAL)2018-03-16 20:56:00 Test Item Value Reference Range Comments WBC (test code=WBC) 6.8 10\S\3/uL 4.5-11.0 RBC (test code=RBC) 3.44 10\S\6/uL 4.20-5.60 HGB (test code=HBG) 11.0 g/dL 12.0-15.5 HCT (test code=HCT) 32.2 % 35.0-44.0 MCV (test code=MCV) 93.6 fL 81.0-99.0 MCH (test code=MCH) 32.0 pg 27.0-31.0 MCHC (test code=MCHC) 34.2 g/dL 32.0-36.0 RDW (test code=RDW) 12.5 % 11.5-14.5 PLT (test code=PLT) 175 10\S\3/uL 130-400 MPV (test code=MPV) 9.3 fL 9.4-12.4 NEUTROP # (test code=NE#) 2.9 10\S\3/uL 1.6-8.0 LYMPH # (test code=LY#) 2.8 10\S\3/uL 1.1-3.5 MONOCYTE # (test code=MO#) 0.9 10\S\3/uL 0.0-1.1 EOSINOPH # (test code=EO#) 0.3 10\S\3/uL 0.0-0.7 BASOPHIL # (test code=BA#) 0.1 10\S\3/uL 0.0-0.3 IG # (test code=IG#) 0.01 10\S\3/uL 0.00-0.06 NRBC # (test code=NRBC#) 0.00 10\S\3/uL 0.00-0.01 NEUTROPH % (test code=NE%) 41.7 % 35.0-73.0 LYMPH % (test code=LY%) 40.9 % 20.0-55.0 MONO % (test code=MO%) 12.9 % 2.5-10.0 EOSINOPH % (test code=EO%) 3.7 % 0.0-5.0 BASOPHIL % (test code=BA%) 0.7 % 0.0-2.0 IG % (test code=IG%) 0.1 % 0.0-0.8 NRBC% (test code=NRBC%) 0.0 % 0.0-0.2 MANDIFF (test code=MDIFF) NO NO CT LUMBAR SPINE W/O [id number] 20:15:23CT LUMBAR SPINE W/O CONTRASTLocation: P7Yhlpm hours services provided03/16/2018 8:13 PMIndication: W19.XXXS: UNSPECIFIED FALL, SEQUELAComparison: None available.Technique: Axial CT images were acquired through the lumbar spine withoutcontrast. Sagittal and coronal reformatted images are provided forinterpretation. All CT scans at this facility use dose modulation, iterativereconstruction, and or weight-based dosing when appropriate to reduce radiationdose to as low as reasonably achievable.Findings: Mild straightening of the normal lumbar lordosis is identified withpreservation of vertebral body alignment. Decreased intervertebral disc spaceis present at L1/2 and L2/3 with mild posterior disc bulges. Multilevelanterior spondylosis is present. Vertebral body heights appear normal. No acutefracture or dislocation is seen. Spinous processes appear well aligned.Impression: Straightening and degenerative disc disease with no acute bonyabnormality noted.CT CERVICAL SPINE W/O [id number] 20: 13:19CT CERVICAL SPINE W/O CONTRASTLocation: L8Sbamh hours services provided03/16 8:11 PMIndication: W19.XXXS: UNSPECIFIED FALL, SEQUELAComparison: None available.Technique: Axial CT images were acquired through the cervical spine withoutcontrast. Sagittal and coronal reformatted images are provided forinterpretation. All CT scans at this facility use dose modulation, iterativereconstruction, and or weight-based dosing when appropriate to reduce radiationdose to as low as reasonably achievable.Findings: Stranding of the normal cervical lordosis is identified with aminimal retrolisthesis of C4 over C5. Posterior disc osteophyte complexespresent at C5/6 with mild endplate sclerosis and uncovertebral jointhypertrophic changes. The facet joints appear normal. No acute fracture ordislocation is identified.Impression: Degenerative disc disease at C5/6 with no evidence of acute bonyabnormality.CT FACIAL W/O [id number] 20:11:27Examination: Facial CT without contrastLocation code : U7Mftzmjejxi: NoneTechnique:Thin section axialcontiguous images were obtained through the face followed bycoronal and sagittal reformations. One or more of the following dose reductiontechniques were used: Automated exposure control, adjustment ofthe mA and orKV according to patient size, and/or utilization of iterative reconstructiontechnique.Discussion:Clinical history is remarkable for fall. Orbital rim bilaterally is intact. Thenasal bone and nasal septum are also intact.There are no air-fluid levels present within the paranasal sinuses.Mandible and maxilla are intact.Impression:1. No acute bony deformity of the face is present.CT HEAD W/O [id number] 20:11:01CT HEAD W/O CONTRASTLocation: [id number] hours services provided 03/16/2018 8:10 PMIndication: W19.XXXS:UNSPECIFIED FALL, SEQUELAComparison: 11/07/17Technique: Axial CT images were acquired through the brain without contrast.All CT scans at this facility use dose modulation, iterative reconstruction,and orweight-based dosing when appropriate to reduce radiation dose to as lowas reasonably achievable.Findings : No acute intracranial hemorrhage, mass or area of mass effect isnoted. The ventricles and sulciappear normal. Extra-axial spaces are clear.Limited views of the paranasal sinuses, mastoids and orbits appearunremarkable. The calvarium is intact.Impression: No acute intracranial abnormality.CT images were acquired within 24 hours of arrival at the facility.XR SPINE LUMBAR [id number] 09:16:30Lumbar spine, 5 viewsLocation Code: [id number] HISTORY: SprainCOMPARISON: None.COMMENTS: AP, oblique, and lateral views of the lumbar spine demonstrate noacute fracture or malalignment. There is moderate multilevel disc spacenarrowing with endplate sclerosis and osteophyte formation. The soft tissuesare unremarkable. Surgical clips overlie the right upper quadrant.IMPRESSION: Moderate multilevel lumbar spondylosis with otherwise no acuteabnormality.[id number] 09:05:00 Test Item Value Reference Range Comments COLOR (test code=COLU) YELLOW YELLOW CLARITY (test code=CLA) CLEAR CLEAR GLUCOSE UR (test code=UA GLUCOSE) NEGATIVE NEGATIVE BILI UR (test code=BILE) NEGATIVE NEGATIVE KETONES UR (test code=AMELIA) NEGATIVE NEGATIVE SP GRAVITY (test code=SPGR) 1.014 1.005-1.030 PH UR (test code=PH) 7.0 4.5-8.0 PROTEIN UR (test code=PU) NEGATIVE NEGATIVE UROBIL UR (test code=UROQ) 0.2 EU/dL 0.2-1.0 NITRITE UR (test code=NITRITE) NEGATIVE NEGATIVE BLOOD UR (test code=UA BLOOD) NEGATIVE NEGATIVE LEUK ES UR (test code=LEUK) NEGATIVE NEGATIVE ALCOHOL BLOOD (ETOH)2017-12-06 20:20:00 Test Item Value Reference Range Comments ETOH (test code=HALC) ETHANOL The result is to be used only for medical purposes ALCOHOL (test code=56A) <10 mg/dL <=10 [id number] 20:20:00 Test Item Value Reference Range Comments ACETAMINPH (test code=94M) <2.0 ug/mL 10.0-30.0 DRUGS OF [id number] 20:19:00 Test Item Value Reference Range Comments DRUG SCRN (test code=HDOA) URINE DRUG SCREEN This is an unconfirmed screening result and should not be used for non-medical purposes CANNABINOD (test code=88C) Negative NEGATIVE AMPHETAMINE (test code=84A) Negative NEGATIVE BENZODIAZP (test code=86A) Negative NEGATIVE BARBITURAT (test code=85A) Negative NEGATIVE OPIATES (test code=92B) Negative NEGATIVE COCAINE (test code=87A) Negative NEGATIVE PHENCYCLID (test code=66A) Negative NEGATIVE METHADONE (test code=64A) Negative NEGATIVE DOAH (test code=DOAH) URINE DRUG SCREEN Cut-off values are as follows: ---- Cannabinoids 50 ng/mL Cocaine 300 ng/mL Amphetamines 1000 ng/mL Phencyclidine 25 ng/mL Benzodiazepines 200 ng.mL Methadone 300 ng/mL Barbiturates 200 ng/mL Opiates 2000 ng/mL COMPREHENSIVE METABOLIC [id number] 20:19:00 Test Item Value Reference Range Comments GLUCOSE (test code=06D) 93 mg/dL 75-100 SODIUM (test code=01A) 136 mmol/L 136-145 POTASSIUM (test code=01B) 3.9 mmol/L 3.6-5.1 CHLORIDE (test code=04A) 101 mmol/L 98-107 CO2 (test code=02A) 25 mmol/L 22-32 ANION GAP (test code=ANG) 13.9 mmol/L BUN (test code=05D) 12 mg/dL 7-18 CREATININE (test code=03E) 1.0 mg/dL 0.4-1.1 BUN/CREA (test code=BCR) 12 12-20 CALCIUM (test code=09D) 9.9 mg/dL 8.3-9.5 BILI TOTAL (test code=11A) 0.6 mg/dL 0.2-1.0 PROTEIN (test code=07D) 9.3 g/dL 6.4-8.2 ALBUMIN (test code=08D) 4.9 g/dL 3.5-4.8 GLOBULIN (test code=GLB) 4.4 g/dL 1.5-3.8 ALB/GLOB (test code=AGRR) 1.1 1.0-2.6 ALK PHOS (test code=35A) 107 IU/L 42-121 AST (test code=30A) 30 IU/L <=42 ALT (test code=31A) 27 IU/L <=78 URINALYSIS WITH [id number] 20:15:00 Test Item Value Reference Range Comments COLOR (test code=COLU) YELLOW YELLOW CLARITY (test code=CLA) CLEAR CLEAR GLUCOSE UR (test code=UA GLUCOSE) NEGATIVE NEGATIVE BILI UR (test code=BILE) NEGATIVE NEGATIVE KETONES UR (test code=AMELIA) NEGATIVE NEGATIVE SP GRAVITY (test code=SPGR) 1.019 1.005-1.030 PH UR (test code=PH) 6.5 4.5-8.0 PROTEIN UR (test code=PU) TRACE NEGATIVE UROBIL UR (test code=UROQ) 0.2 EU/dL 0.2-1.0 NITRITE UR (test code=NITRITE) NEGATIVE NEGATIVE BLOOD UR (test code=UA BLOOD) NEGATIVE NEGATIVE LEUK ES UR (test code=LEUK) 2+ NEGATIVE WBC UR (test code=UWBC) 6 /HPF 0-5 RBC UR (test code=URBC) 2 /HPF 0-2 EPITH UR (test code=UEPC) FEW /LPF FEW BACTERIA UR (test code=UBACT) FEW /HPF NONE CAST UR (test code=CAST) /LPF NONE CRYSTAL UR (test code=CRYU) / LPF NONE MUCUS UR (test code=MUC) / HPF NONE AMORPH UR (test code=BRANDON) / HPF NONE TRICH UR (test code=UTRICH) /HPF NONE YEAST UR (test code=UY) /HPF NONE SPERM UR (test code=USPERM) /HPF NONE CARDIAC [id number] 20:14:00 Test Item Value Reference Range Comments TROPONIN I (test code=A84) <0.015 ng/mL 0.000-0.045 CKMB (test code=A49) <1.0 ng/mL <=3.6 CPK (test code=32A) 118 IU/L 26-192 AMMONIA [id number] 20:06:00 Test Item Value Reference Range Comments AMMONIA (test code=54A) 22 umol/L 11-32 [id number] 20:06:00 Test Item Value Reference Range Comments SALICYLATE (test code=94B) <1.7 mg/dL 2.8-20.0 SERUM [id number] 20:03:00 Test Item Value Reference Range Comments PREG SRM (test code=PGS) NEGATIVE NEGATIVE CBC (INCLUDES AUTOMATED DIFFERENTIAL)2017-12-06 19:58:00 Test Item Value Reference Range Comments WBC (test code=WBC) 6.5 10\S\3/uL 4.5-11.0 RBC (test code=RBC) 4.83 10\S\6/uL 4.20-5.60 HGB (test code=HBG) 15.2 g/dL 12.0-15.5 HCT (test code=HCT) 45.3 % 35.0-44.0 MCV (test code=MCV) 93.8 fL 81.0-99.0 MCH (test code=MCH) 31.5 pg 27.0-31.0 MCHC (test code=MCHC) 33.6 g/dL 32.0-36.0 RDW (test code=RDW) 12.5 % 11.5-14.5 PLT (test code=PLT) 211 10\S\3/uL 130-400 MPV (test code=MPV) 10.6 fL 9.4-12.4 NEUTROP # (test code=NE#) 3.2 10\S\3/uL 1.6-8.0 LYMPH # (test code=LY#) 2.7 10\S\3/uL 1.1-3.5 MONOCYTE # (test code=MO#) 0.4 10\S\3/uL 0.0-1.1 EOSINOPH # (test code=EO#) 0.1 10\S\3/uL 0.0-0.7 BASOPHIL # (test code=BA#) 0.0 10\S\3/uL 0.0-0.3 IG # (test code=IG#) 0.01 10\S\3/uL 0.00-0.06 NRBC # (test code=NRBC#) 0.00 10\S\3/uL 0.00-0.01 NEUTROPH % (test code=NE%) 49.7 % 35.0-73.0 LYMPH % (test code=LY%) 41.7 % 20.0-55.0 MONO % (test code=MO%) 6.5 % 2.5-10.0 EOSINOPH % (test code=EO%) 1.4 % 0.0-5.0 BASOPHIL % (test code=BA%) 0.5 % 0.0-2.0 IG % (test code=IG%) 0.2 % 0.0-0.8 NRBC% (test code=NRBC%) 0.0 % 0.0-0.2 MANDIFF (test code=MDIFF) NO NO XR CHEST 1 VIEW [id number] 18:44:59LOCATION: [id number]: 52-year-old female with nonspecified chest pain.COMMENT: A frontal chest radiograph was obtained at the bedside at 6:41 p.m., andcompared to a prior study of 10/22/162017.The lungs are clear and well-aerated. The cardiac silhouette, julianne, andmediastinum are within normal limits. The skeleton is intact, and thesurrounding soft tissues are unremarkable. IMPRESSION:Unremarkable portable examination of the chest.CT HEAD W/O [id number] 18:39: 38LOCATION: [id number]: 52-year-old female who presents with a headache.COMMENT : Axial imaging of the patient's brain was obtained without IV contrast. Softtissue and bone window images were provided. Coronal and sagittalreconstructions were included.An older examination of 07/28/17 is available forcomparison.The current study was obtained within 24 hours of the patient's arrival to [facility].One or more of the following dose reduction techniques were used: Automatedexposure control, adjustment of the mA and/or kV according to patient size,and/or utilization of iterative reconstruction technique.DLP: 782 mGy-cmCONTRAST: None.FINDINGS:There is no evidence of acute mass effect, midline shift, hemorrhage, orherniation. The ventricles, sulci, and cisterns are within normal limits. Thereis no CTevidence of an acute infarct.The skeleton is intact. The visualized paranasal sinuses and air cells areclear. The soft tissues are unremarkable.IMPRESSION: Unremarkable noncontrast head CT examination.URINALYSIS WITH [id number] 22:27:00 Test Item Value Reference Range Comments COLOR (test code=COLU) YELLOW YELLOW CLARITY (test code=CLA) CLEAR CLEAR GLUCOSE UR (test code=UA GLUCOSE) NEGATIVE NEGATIVE BILI UR (test code=BILE) NEGATIVE NEGATIVE KETONES UR (test code=AMELIA) NEGATIVE NEGATIVE SP GRAVITY (test code=SPGR) 1.020 1.005-1.030 PH UR (test code=PH) 6.0 4.5-8.0 PROTEIN UR (test code=PU) TRACE NEGATIVE UROBIL UR (test code=UROQ) 0.2 EU/dL 0.2-1.0 NITRITE UR (test code=NITRITE) NEGATIVE NEGATIVE BLOOD UR (test code=UA BLOOD) NEGATIVE NEGATIVE LEUK ES UR (test code=LEUK) 1+ NEGATIVE WBC UR (test code=UWBC) 6 /HPF 0-5 RBC UR (test code=URBC) 0 /HPF 0-2 EPITH UR (test code=UEPC) FEW /LPF FEW BACTERIA UR (test code=UBACT) NONE /HPF NONE CAST UR (test code=CAST) /LPF NONE CRYSTAL UR (test code=CRYU) / LPF NONE MUCUS UR (test code=MUC) FEW / HPF NONE AMORPH UR (test code=BRANDON) / HPF NONE TRICH UR (test code=UTRICH) /HPF NONE YEAST UR (test code=UY) /HPF NONE SPERM UR (test code=USPERM) /HPF NONE DRUGS OF [id number] 22:22:00 Test Item Value Reference Range Comments DRUG SCRN (test code=HDOA) URINE DRUG SCREEN This is an unconfirmed screening result and should not be used for non-medical purposes CANNABINOD (test code=88C) Negative NEGATIVE AMPHETAMINE (test code=84A) Negative NEGATIVE BENZODIAZP (test code=86A) Negative NEGATIVE BARBITURAT (test code=85A) Negative NEGATIVE OPIATES (test code=92B) Negative NEGATIVE COCAINE (test code=87A) Negative NEGATIVE PHENCYCLID (test code=66A) Negative NEGATIVE METHADONE (test code=64A) Negative NEGATIVE DOAH (test code=DOAH) URINE DRUG SCREEN Cut-off values are as follows: ---- Cannabinoids 50 ng/mL Cocaine 300 ng/mL Amphetamines 1000 ng/mL Phencyclidine 25 ng/mL Benzodiazepines 200 ng.mL Methadone 300 ng/mL Barbiturates 200 ng/mL Opiates 2000 ng/mL CARDIAC [id number] 21:29:00 Test Item Value Reference Range Comments TROPONIN I (test code=A84) <0.015 ng/mL 0.000-0.045 CKMB (test code=A49) <1.0 ng/mL <=3.6 CPK (test code=32A) 95 IU/L 26-192 COMPREHENSIVE METABOLIC [id number] 21:23:00 Test Item Value Reference Range Comments GLUCOSE (test code=06D) 78 mg/dL 75-100 SODIUM (test code=01A) 138 mmol/L 136-145 POTASSIUM (test code=01B) 3.9 mmol/L 3.6-5.1 CHLORIDE (test code=04A) 106 mmol/L 98-107 CO2 (test code=02A) 25 mmol/L 22-32 ANION GAP (test code=ANG) 10.9 mmol/L BUN (test code=05D) 14 mg/dL 7-18 CREATININE (test code=03E) 1.1 mg/dL 0.4-1.1 BUN/CREA (test code=BCR) 13 12-20 CALCIUM (test code=09D) 8.9 mg/dL 8.3-9.5 BILI TOTAL (test code=11A) 0.3 mg/dL 0.2-1.0 PROTEIN (test code=07D) 7.7 g/dL 6.4-8.2 ALBUMIN (test code=08D) 4.0 g/dL 3.5-4.8 GLOBULIN (test code=GLB) 3.7 g/dL 1.5-3.8 ALB/GLOB (test code=AGRR) 1.1 1.0-2.6 ALK PHOS (test code=35A) 131 IU/L 42-121 AST (test code=30A) 38 IU/L <=42 ALT (test code=31A) 33 IU/L <=78 CBC (INCLUDES AUTOMATED DIFFERENTIAL)2017-10-29 21:08:00 Test Item Value Reference Range Comments WBC (test code=WBC) 5.6 10\S\3/uL 4.5-11.0 RBC (test code=RBC) 4.04 10\S\6/uL 4.20-5.60 HGB (test code=HBG) 13.0 g/dL 12.0-15.5 HCT (test code=HCT) 38.5 % 35.0-44.0 MCV (test code=MCV) 95.3 fL 81.0-99.0 MCH (test code=MCH) 32.2 pg 27.0-31.0 MCHC (test code=MCHC) 33.8 g/dL 32.0-36.0 RDW (test code=RDW) 12.4 % 11.5-14.5 PLT (test code=PLT) 251 10\S\3/uL 130-400 MPV (test code=MPV) 10.4 fL 9.4-12.4 NEUTROP # (test code=NE#) 2.4 10\S\3/uL 1.6-8.0 LYMPH # (test code=LY#) 2.6 10\S\3/uL 1.1-3.5 MONOCYTE # (test code=MO#) 0.4 10\S\3/uL 0.0-1.1 EOSINOPH # (test code=EO#) 0.1 10\S\3/uL 0.0-0.7 BASOPHIL # (test code=BA#) 0.0 10\S\3/uL 0.0-0.3 IG # (test code=IG#) 0.01 10\S\3/uL 0.00-0.06 NRBC # (test code=NRBC#) 0.00 10\S\3/uL 0.00-0.01 NEUTROPH % (test code=NE%) 42.9 % 35.0-73.0 LYMPH % (test code=LY%) 46.8 % 20.0-55.0 MONO % (test code=MO%) 7.3 % 2.5-10.0 EOSINOPH % (test code=EO%) 2.1 % 0.0-5.0 BASOPHIL % (test code=BA%) 0.7 % 0.0-2.0 IG % (test code=IG%) 0.2 % 0.0-0.8 NRBC% (test code=NRBC%) 0.0 % 0.0-0.2 MANDIFF (test code=MDIFF) NO NO RBC MORPH (test code=RBCMOR) NORMAL XR CHEST 1 VIEW [id number] 20:25:30EXAM: XR CHEST 1 VIEW PORTABLEHISTORY : [id number]: Seizure TECHNIQUE: Frontal view of the chest.COMPARISON: 2017FINDINGS:The lungs are well inflated and clear. No evidence of pneumothorax or pleuraleffusion. The heart is normal in size. The mediastinal contours are unremarkable. Osseous structures are intact. Linear radiopacities overlying the right lungapex are compatible with artifact. IMPRESSION:No evidence of acute cardiopulmonary disease.XR HUMERUS LEFT AP & [id number] 18:02: 15Exam: X-ray left humerus 2 viewsHISTORY: Pain after fall.Location: [id number]: No fracture or dislocation is noted. No osseous lesions seen.IMPRESSION:1. Unremarkable exam.XR CHEST 2 [id number] 18:01:20Exam: Chest x-ray 2 viewsHISTORY: FallLocation: [id number]:The heart size is normal and lung pizarro are clear. Osseous structures areintact.IMPRESSION:1. Normal chest. No change since 08/14/17XR SPINE CERVICAL [id number] 18:00:27Cervical spine, 5 viewsLocation code: X5Ogujfded history: Neck pain after fallComments: AP, oblique,open mouth odontoid and lateral views of the cervicalspine demonstrate no displaced fracture or malalignment. There is mildmultilevel disc space narrowing with endplate sclerosis and anterior osteophyteformation. The oblique projections demonstrate no significant foraminalnarrowing. The soft tissues are unremarkable. Impression: Mild multilevel spondylosis with otherwise no acute abnormality.XR CHEST 2 VIEWS *NT*2017-08-14 10:53:18PA and lateral chest, 2 views.Location code: [id number] HISTORY: Preoperative respiratory assessmentCOMPARISON: NoneCOMMENTS: The lungs are clear and well inflated. The costophrenic angles aresharp. The cardiomediastinal silhouette is unremarkable. The bones are intact.IMPRESSION: No acute abnormalityXR CHEST 1 VIEW [id number] 14:54:26EXAM: Portable chest one view.Location code:R 16HISTORY: FallCOMPARISON: 10/10/2016Findings:The cardiac silhouette is normal in size. No focal consolidation. A lateralhazy lung opacities and prominent interstitial lung markings. No large pleuraleffusion or pneumothorax. The bones are intact.IMPRESSION: Pulmonary interstitial edema and mild CHF is suggested..VALPROIC ACID (DEPAKENE)2017-07-28 14:53:00 Test Item Value Reference Range Comments VALP ACID (test code=95A) 108.0 ug/mL 50.0-100.0 CT CERVICAL SPINE W/O [id number] 14:52:28CT cervical spine without contrastLocation Code: G2Fzilpyql history: seizure disorderCOMPARISON: None.COMMENTS: Helical CT of the cervical spine was performed and submitted as thinsection axial, coronal, and sagittally oriented images.There is no acute fracture or malalignment of the cervical spine. The softtissues are unremarkable. Degenerative disease is noted most pronounced atC5-C6 with grade 1 retrolisthesis of C5 on C6.IMPRESSION: No acute abnormality.CT HEAD W/O [id number] 14:50:47EXAM: CT Head without contrastLocation code:R 16HISTORY: HeadacheCOMPARISON: None available.TECHNIQUE: Multiple transaxial images of the brain were obtained withoutintravenous contrast using 5mm slices. FINDINGS: There is no acute intracranial hemorrhage. There is no mass, masseffect, midline shift or extra-axial fluid collection.Brain parenchymal volumeand ventricular caliber are within normal limits. Chaudhary-white differentiation ismaintained. There is no evidence for acute major vessel infarct. Paranasalsinuses, mastoid air cells and visualized orbital contents are within normallimits. Osseous structures are within normal limits. IMPRESSION:No acute intracranial abnormality.COMPREHENSIVE METABOLIC [id number] 14:46:00 Test Item Value Reference Range Comments GLUCOSE (test code=06D) 100 mg/dL 75-100 SODIUM (test code=01A) 141 mmol/L 136-145 POTASSIUM (test code=01B) 3.8 mmol/L 3.6-5.1 CHLORIDE (test code=04A) 106 mmol/L 98-107 CO2 (test code=02A) 27 mmol/L 22-32 ANION GAP (test code=ANG) 11.8 mmol/L BUN (test code=05D) 20 mg/dL 7-18 CREATININE (test code=03E) 1.0 mg/dL 0.4-1.1 BUN/CREA (test code=BCR) 20 12-20 CALCIUM (test code=09D) 8.9 mg/dL 8.3-9.5 BILI TOTAL (test code=11A) 0.4 mg/dL 0.2-1.0 PROTEIN (test code=07D) 6.9 g/dL 6.4-8.2 ALBUMIN (test code=08D) 3.8 g/dL 3.5-4.8 GLOBULIN (test code=GLB) 3.1 g/dL 1.5-3.8 ALB/GLOB (test code=AGRR) 1.2 1.0-2.6 ALK PHOS (test code=35A) 52 IU/L 42-121 AST (test code=30A) 14 IU/L <=42 ALT (test code=31A) 12 IU/L <=78 CBC (INCLUDES AUTOMATED DIFFERENTIAL)2017-07-28 14:32:00 Test Item Value Reference Range Comments WBC (test code=WBC) 6.5 10\S\3/uL 4.5-11.0 RBC (test code=RBC) 3.83 10\S\6/uL 4.20-5.60 HGB (test code=HBG) 12.1 g/dL 12.0-15.5 HCT (test code=HCT) 35.0 % 35.0-44.0 MCV (test code=MCV) 91.4 fL 81.0-99.0 MCH (test code=MCH) 31.6 pg 27.0-31.0 MCHC (test code=MCHC) 34.6 g/dL 32.0-36.0 RDW (test code=RDW) 13.0 % 11.5-14.5 PLT (test code=PLT) 137 10\S\3/uL 130-400 MPV (test code=MPV) 9.9 fL 9.4-12.4 NEUTROP # (test code=NE#) 3.5 10\S\3/uL 1.6-8.0 LYMPH # (test code=LY#) 2.3 10\S\3/uL 1.1-3.5 MONOCYTE # (test code=MO#) 0.5 10\S\3/uL 0.0-1.1 EOSINOPH # (test code=EO#) 0.1 10\S\3/uL 0.0-0.7 BASOPHIL # (test code=BA#) 0.0 10\S\3/uL 0.0-0.3 IG # (test code=IG#) 0.01 10\S\3/uL 0.00-0.06 NRBC # (test code=NRBC#) 0.00 10\S\3/uL 0.00-0.01 NEUTROPH % (test code=NE%) 54.1 % 35.0-73.0 LYMPH % (test code=LY%) 35.1 % 20.0-55.0 MONO % (test code=MO%) 7.9 % 2.5-10.0 EOSINOPH % (test code=EO%) 2.2 % 0.0-5.0 BASOPHIL % (test code=BA%) 0.5 % 0.0-2.0 IG % (test code=IG%) 0.2 % 0.0-0.8 NRBC% (test code=NRBC%) 0.0 % 0.0-0.2 MANDIFF (test code=MDIFF) NO NO RBC MORPH (test code=RBCMOR) NORMAL URINALYSIS WITH [id number] 14:30:00 Test Item Value Reference Range Comments COLOR (test code=COLU) DK YELLOW YELLOW CLARITY (test code=CLA) CLEAR CLEAR GLUCOSE UR (test code=UA GLUCOSE) NEGATIVE NEGATIVE BILI UR (test code=BILE) NEGATIVE NEGATIVE KETONES UR (test code=AMELIA) NEGATIVE NEGATIVE SP GRAVITY (test code=SPGR) 1.024 1.005-1.030 PH UR (test code=PH) 6.0 4.5-8.0 PROTEIN UR (test code=PU) 1+ NEGATIVE UROBIL UR (test code=UROQ) 0.2 EU/dL 0.2-1.0 NITRITE UR (test code=NITRITE) NEGATIVE NEGATIVE BLOOD UR (test code=UA BLOOD) NEGATIVE NEGATIVE LEUK ES UR (test code=LEUK) 2+ NEGATIVE WBC UR (test code=UWBC) 8 /HPF 0-5 RBC UR (test code=URBC) 1 /HPF 0-2 EPITH UR (test code=UEPC) FEW /LPF FEW BACTERIA UR (test code=UBACT) NONE /HPF NONE CAST UR (test code=CAST) /LPF NONE CRYSTAL UR (test code=CRYU) / LPF NONE MUCUS UR (test code=MUC) / HPF NONE AMORPH UR (test code=BRANDON) / HPF NONE TRICH UR (test code=UTRICH) /HPF NONE YEAST UR (test code=UY) /HPF NONE SPERM UR (test code=USPERM) /HPF NONE CT HEAD W/O [id number] 22:01:18AFTER HOURS SERVICE ON: 06/01/2017 9:59 PMCT Scan of the Brain Without ContrastLocation Code [id number]: Headache, closed head injury, seizure, fallTechnique: Scans were performed on a helical scannerpre IV contrast only. Thestudy is limited secondary to lack of intravenous contrast, particularly forevaluation of masses. CT images were performed within 24 hours at arrival tot facility. One or more of the following dose reduction techniques were used: Automatedexposure control, adjustment of the mA and/or kV according to patient size,and/or utilization of iterative reconstruction technique.Findings: There is no hydrocephalus. Basal cisterns are patent. There is no intracranialhyperdense hemorrhage. There is no midline shift or mass effect. No effacementof the chaudhary-white matter junction to indicate acute infarction. There is noskull fracture. Impression:No acute intracranial CT findings.CARBAMAZEPHINE (TEGRETOL)2017-06-01 21:56:00 Test Item Value Reference Range Comments CARBAMAZPN (test code=98A) <0.5 ug/mL 4.0-12.0 DILANTIN (PHENYTOIN) [id number] 21:55:00 Test Item Value Reference Range Comments PHENYTOIN (test code=68C) <0.4 ug/mL 10.0-20.0 VALPROIC ACID (DEPAKENE)2017-06-01 21:54:00 Test Item Value Reference Range Comments VALP ACID (test code=95A) <3.0 ug/mL 50.0-100.0 COMPREHENSIVE METABOLIC [id number] 21:50:00 Test Item Value Reference Range Comments GLUCOSE (test code=06D) 94 mg/dL 75-100 SODIUM (test code=01A) 138 mmol/L 136-145 POTASSIUM (test code=01B) 4.0 mmol/L 3.6-5.1 CHLORIDE (test code=04A) 105 mmol/L 98-107 CO2 (test code=02A) 24 mmol/L 22-32 ANION GAP (test code=ANG) 13.0 mmol/L BUN (test code=05D) 11 mg/dL 7-18 CREATININE (test code=03E) 0.9 mg/dL 0.4-1.1 BUN/CREA (test code=BCR) 12 12-20 CALCIUM (test code=09D) 8.9 mg/dL 8.3-9.5 BILI TOTAL (test code=11A) 0.3 mg/dL 0.2-1.0 PROTEIN (test code=07D) 7.1 g/dL 6.4-8.2 ALBUMIN (test code=08D) 3.8 g/dL 3.5-4.8 GLOBULIN (test code=GLB) 3.3 g/dL 1.5-3.8 ALB/GLOB (test code=AGRR) 1.2 1.0-2.6 ALK PHOS (test code=35A) 58 IU/L 42-121 AST (test code=30A) 15 IU/L <=42 ALT (test code=31A) 17 IU/L <=78 URINALYSIS WITH [id number] 21:38:00 Test Item Value Reference Range Comments COLOR (test code=COLU) YELLOW YELLOW CLARITY (test code=CLA) CLEAR CLEAR GLUCOSE UR (test code=UA GLUCOSE) NEGATIVE NEGATIVE BILI UR (test code=BILE) NEGATIVE NEGATIVE KETONES UR (test code=AMELIA) NEGATIVE NEGATIVE SP GRAVITY (test code=SPGR) 1.010 1.005-1.030 PH UR (test code=PH) 7.0 4.5-8.0 PROTEIN UR (test code=PU) NEGATIVE NEGATIVE UROBIL UR (test code=UROQ) 0.2 EU/dL 0.2-1.0 NITRITE UR (test code=NITRITE) NEGATIVE NEGATIVE BLOOD UR (test code=UA BLOOD) NEGATIVE NEGATIVE LEUK ES UR (test code=LEUK) 1+ NEGATIVE WBC UR (test code=UWBC) 2 /HPF 0-5 RBC UR (test code=URBC) 0 /HPF 0-2 EPITH UR (test code=UEPC) FEW /LPF FEW BACTERIA UR (test code=UBACT) NONE /HPF NONE CAST UR (test code=CAST) /LPF NONE CRYSTAL UR (test code=CRYU) / LPF NONE MUCUS UR (test code=MUC) / HPF NONE AMORPH UR (test code=BRANDON) / HPF NONE TRICH UR (test code=UTRICH) /HPF NONE YEAST UR (test code=UY) /HPF NONE SPERM UR (test code=USPERM) /HPF NONE DRUGS OF [id number] 21:38:00 Test Item Value Reference Range Comments DRUG SCRN (test code=HDOA) URINE DRUG SCREEN This is an unconfirmed screening result and should not be used for non-medical purposes CANNABINOD (test code=88C) Negative NEGATIVE AMPHETAMINE (test code=84A) Negative NEGATIVE BENZODIAZP (test code=86A) Negative NEGATIVE BARBITURAT (test code=85A) Negative NEGATIVE OPIATES (test code=92B) Negative NEGATIVE COCAINE (test code=87A) Negative NEGATIVE PHENCYCLID (test code=66A) Negative NEGATIVE METHADONE (test code=64A) Negative NEGATIVE DOAH (test code=DOAH) URINE DRUG SCREEN Cut-off values are as follows: ---- Cannabinoids 50 ng/mL Cocaine 300 ng/mL Amphetamines 1000 ng/mL Phencyclidine 25 ng/mL Benzodiazepines 200 ng.mL Methadone 300 ng/mL Barbiturates 200 ng/mL Opiates 2000 ng/mL [id number] 21:30:00 Test Item Value Reference Range Comments MAGNESIUM (test code=48A) 2.0 mg/dL 1.8-2.4 CBC (INCLUDES AUTOMATED DIFFERENTIAL)2017-06-01 21:23:00 Test Item Value Reference Range Comments WBC (test code=WBC) 5.5 10\S\3/uL 4.5-11.0 RBC (test code=RBC) 3.68 10\S\6/uL 4.20-5.60 HGB (test code=HBG) 11.4 g/dL 12.0-15.5 HCT (test code=HCT) 33.6 % 35.0-44.0 MCV (test code=MCV) 91.3 fL 81.0-99.0 MCH (test code=MCH) 31.0 pg 27.0-31.0 MCHC (test code=MCHC) 33.9 g/dL 32.0-36.0 RDW (test code=RDW) 13.5 % 11.5-14.5 PLT (test code=PLT) 180 10\S\3/uL 130-400 MPV (test code=MPV) 10.1 fL 9.4-12.4 NEUTROP # (test code=NE#) 2.5 10\S\3/uL 1.6-8.0 LYMPH # (test code=LY#) 2.4 10\S\3/uL 1.1-3.5 MONOCYTE # (test code=MO#) 0.5 10\S\3/uL 0.0-1.1 EOSINOPH # (test code=EO#) 0.1 10\S\3/uL 0.0-0.7 BASOPHIL # (test code=BA#) 0.0 10\S\3/uL 0.0-0.3 IG # (test code=IG#) 0.01 10\S\3/uL 0.00-0.06 NRBC # (test code=NRBC#) 0.00 10\S\3/uL 0.00-0.01 NEUTROPH % (test code=NE%) 46.0 % 35.0-73.0 LYMPH % (test code=LY%) 42.6 % 20.0-55.0 MONO % (test code=MO%) 9.1 % 2.5-10.0 EOSINOPH % (test code=EO%) 1.4 % 0.0-5.0 BASOPHIL % (test code=BA%) 0.7 % 0.0-2.0 IG % (test code=IG%) 0.2 % 0.0-0.8 NRBC% (test code=NRBC%) 0.0 % 0.0-0.2 MANDIFF (test code=MDIFF) NO NO RBC MORPH (test code=RBCMOR) NORMAL NM LUNG (V/Q ) SCAN W [id number] 18:43:38HISTORY: Shortness of breath, elevated d-dimerLocation: N0Gkcfoiuevs to chest x-ray 10 October 2016TECHNIQUE: 9 mCi of xenon-133 was given for the ventilation portion of thestudy. 6.3 mCi of Tc 99m MAA was given for the perfusion portion of the exam.Standard scintigraphic images were obtained.FINDINGS: The perfusion images demonstrate no significant perfusionabnormality. The ventilation images show mildly delayed washout ofradioisotope. There is no evidence of ventilation/perfusion mismatch.IMPRESSION:1. Low probability for pulmonary embolism .2. Mild COPDU/S VENOUS DOPPLER TEETEE LOW [id number] 17:15:51HISTORY: leg swellingLocation : [id number]: Real time chaudhary scale, color flow and Doppler spectral imagingof the bilateral lower extremity was performed revealing patent deep venoussystem with no evidence of deep venous thrombosis of obstruction. There isnormal augmentation of flow with compression of calf veins. No fluidcollections.IMPRESSION:1. No evidence of deep venous thrombosis bilaterally.[id number] 17:09:00 Test Item Value Reference Range Comments D-DIMER (test code=DDI) 299 ng/mL D-DU 0-234 D-DIMER COMMENT (test *Level to rule out DVT or PE: code=DDCOM) <235 ng/mL D-DU* GLUCOMETER GLUCOSE- LAB USE [id number] 16:04:00 Test Item Value Reference Range Comments GLUCOMETER (test code=GMG) 95 mg/dL 70-100 CLEANED METERMeter ID: [id number]: [id number] GLUCOMETER GLUCOSE- LAB USE [id number] 12:15:00 Test Item Value Reference Range Comments GLUCOMETER (test code=GMG) 89 mg/dL 70-100 CLEANED METERMeter ID: [id number]: [id number] GLUCOMETER GLUCOSE- LAB USE [id number] 06:10:00 Test Item Value Reference Range Comments GLUCOMETER (test code=GMG) 105 mg/dL 70-100 CLEANED METERMeter ID: [id number]: [id number] LAURE[address]O CARDIAC [id number] 05:18:00 Test Item Value Reference Range Comments TROPONIN I (test code=A84) <0.015 ng/mL 0.000-0.045 CKMB (test code=A49) <1.0 ng/mL <=3.6 CPK (test code=32A) 49 IU/L 26-192 BASIC METABOLIC [id number] 05:15:00 Test Item Value Reference Range Comments GLUCOSE (test code=06D) 102 mg/dL 75-100 SODIUM (test code=01A) 141 mmol/L 136-145 POTASSIUM (test code=01B) 4.2 mmol/L 3.6-5.1 CHLORIDE (test code=04A) 108 mmol/L 98-107 CO2 (test code=02A) 26 mmol/L 22-32 ANION GAP (test code=ANG) 11.2 mmol/L BUN (test code=05D) 12 mg/dL 7-18 CREATININE (test code=03E) 1.1 mg/dL 0.4-1.1 BUN/CREA R (test code=BCR) 11 12-20 CALCIUM (test code=09D) 9.0 mg/dL 8.3-9.5 CBC (INCLUDES AUTOMATED DIFFERENTIAL)2016-10-11 05:02:00 Test Item Value Reference Range Comments WBC (test code=WBC) 7.4 10\S\3/uL 4.5-11.0 RBC (test code=RBC) 3.91 10\S\6/uL 4.20-5.60 HGB (test code=HBG) 12.2 g/dL 12.0-15.5 HCT (test code=HCT) 36.4 % 35.0-44.0 MCV (test code=MCV) 93.1 fL 81.0-99.0 MCH (test code=MCH) 31.2 pg 27.0-31.0 MCHC (test code=MCHC) 33.5 g/dL 32.0-36.0 RDW (test code=RDW) 12.9 % 11.5-14.5 PLT (test code=PLT) 251 10\S\3/uL 130-400 MPV (test code=MPV) 9.6 fL 9.4-12.4 NEUTROP # (test code=NE#) 3.7 10\S\3/uL 1.6-8.0 LYMPH # (test code=LY#) 2.8 10\S\3/uL 1.1-3.5 MONOCYTE # (test code=MO#) 0.6 10\S\3/uL 0.0-1.1 EOSINOPH # (test code=EO#) 0.1 10\S\3/uL 0.0-0.7 BASOPHIL # (test code=BA#) 0.0 10\S\3/uL 0.0-0.3 IG # (test code=IG#) 0.01 10\S\3/uL 0.00-0.06 NRBC # (test code=NRBC#) 0.00 10\S\3/uL 0.00-0.01 NEUTROPH % (test code=NE%) 50.6 % 35.0-73.0 LYMPH % (test code=LY%) 38.4 % 20.0-55.0 MONO % (test code=MO%) 8.6 % 2.5-10.0 EOSINOPH % (test code=EO%) 1.8 % 0.0-5.0 BASOPHIL % (test code=BA%) 0.5 % 0.0-2.0 IG % (test code=IG%) 0.1 % 0.0-0.8 NRBC% (test code=NRBC%) 0.0 % 0.0-0.2 MANDIFF (test code=MDIFF) NO NO RBC MORPH (test code=RBCMOR) NORMAL GLUCOMETER GLUCOSE- LAB USE [id number] 20:07:00 Test Item Value Reference Range Comments GLUCOMETER (test code=GMG) 104 mg/dL 70-100 Meter ID: [id number]: [id number] BRAIN NATRIURETIC [id number] 18:01:00 Test Item Value Reference Range Comments proBNP (test code=PBNP) 92 pg/mL 0-125 COMPREHENSIVE METABOLIC [id number] 17:59:00 Test Item Value Reference Range Comments GLUCOSE (test code=06D) 108 mg/dL 75-100 SODIUM (test code=01A) 141 mmol/L 136-145 POTASSIUM (test code=01B) 4.0 mmol/L 3.6-5.1 CHLORIDE (test code=04A) 105 mmol/L 98-107 CO2 (test code=02A) 26 mmol/L 22-32 ANION GAP (test code=ANG) 14.0 mmol/L BUN (test code=05D) 11 mg/dL 7-18 CREATININE (test code=03E) 1.1 mg/dL 0.4-1.1 BUN/CREA R (test code=BCR) 10 12-20 CALCIUM (test code=09D) 9.1 mg/dL 8.3-9.5 BILI TOTAL (test code=11A) 0.2 mg/dL 0.2-1.0 PROTEIN (test code=07D) 7.4 g/dL 6.4-8.2 ALBUMIN (test code=08D) 3.9 g/dL 3.5-4.8 GLOBULIN (test code=GLB) 3.5 g/dL 1.5-3.8 ALB/GLOB (test code=AGRR) 1.1 1.0-2.6 ALK PHOS (test code=35A) 103 IU/L 42-121 AST (test code=30A) 20 IU/L <=42 ALT (test code=31A) 20 IU/L <=78 CARDIAC [id number] 17:59:00 Test Item Value Reference Range Comments TROPONIN I (test code=A84) <0.015 ng/mL 0.000-0.045 CKMB (test code=A49) <1.0 ng/mL <=3.6 CPK (test code=32A) 56 IU/L 26-192 XR CHEST 1 VIEW [id number] 17:54:17HISTORY: chest painLocation code: [id number]: Frontal view of the chest demonstrates normal cardiomediastinalsilhouette. The trachea is midline. The lungs are clear. There is no effusionor pneumothorax. The bones are intact.IMPRESSION: No acute pulmonary process.PRO TIME AND [id number] 17:54:00 Test Item Value Reference Range Comments PT (test code=TT) 10.7 s 9.8-13.6 INR (test code=INR) 1.0 INRH (test code=INRH) SUGGESTED THERAPEUTIC RANGE FOR INR: 2.5 - 3.5 For Patients with Prosthetic Valves or Patients with recurrent Thromboembolic Events 2.0 - 3.0 For Most Other Applications PTT (test code=PTT) 24.4 s 20.2-38.0 PTTH (test code=PTTH) To monitor the effectiveness of heparin, we offer the Anti-Xa (Heparin Assay). It can be used for either unfractinated or LMW Heparin. Order Code is ANTI-XA [id number] 17:53:00 Test Item Value Reference Range Comments D-DIMER (test code=DDI) 379 ng/mL D-DU 0-234 D-DIMER COMMENT (test *Level to rule out DVT or PE: code=DDCOM) <235 ng/mL D-DU* CBC (INCLUDES AUTOMATED DIFFERENTIAL)2016-10-10 17:40:00 Test Item Value Reference Range Comments WBC (test code=WBC) 8.7 10\S\3/uL 4.5-11.0 RBC (test code=RBC) 4.10 10\S\6/uL 4.20-5.60 HGB (test code=HBG) 12.9 g/dL 12.0-15.5 HCT (test code=HCT) 37.1 % 35.0-44.0 MCV (test code=MCV) 90.5 fL 81.0-99.0 MCH (test code=MCH) 31.5 pg 27.0-31.0 MCHC (test code=MCHC) 34.8 g/dL 32.0-36.0 RDW (test code=RDW) 12.7 % 11.5-14.5 PLT (test code=PLT) 277 10\S\3/uL 130-400 MPV (test code=MPV) 9.7 fL 9.4-12.4 NEUTROP # (test code=NE#) 5.3 10\S\3/uL 1.6-8.0 LYMPH # (test code=LY#) 2.8 10\S\3/uL 1.1-3.5 MONOCYTE # (test code=MO#) 0.5 10\S\3/uL 0.0-1.1 EOSINOPH # (test code=EO#) 0.1 10\S\3/uL 0.0-0.7 BASOPHIL # (test code=BA#) 0.0 10\S\3/uL 0.0-0.3 IG # (test code=IG#) 0.02 10\S\3/uL 0.00-0.06 NRBC # (test code=NRBC#) 0.00 10\S\3/uL 0.00-0.01 NEUTROPH % (test code=NE%) 60.8 % 35.0-73.0 LYMPH % (test code=LY%) 31.8 % 20.0-55.0 MONO % (test code=MO%) 5.4 % 2.5-10.0 EOSINOPH % (test code=EO%) 1.5 % 0.0-5.0 BASOPHIL % (test code=BA%) 0.3 % 0.0-2.0 IG % (test code=IG%) 0.2 % 0.0-0.8 NRBC% (test code=NRBC%) 0.0 % 0.0-0.2 MANDIFF (test code=MDIFF) NO NO RBC MORPH (test code=RBCMOR) NORMAL
--- NOTE | 2018-06-29 20:32 | RAD REPORT ---
EXAM DESCRIPTION: RAD - Chest Single View - 06/29/2018 8:17 pm CLINICAL HISTORY: seizure Chest pain. COMPARISON: Chest Single View dated 11/23/2017 FINDINGS: Portable technique limits examination quality. The lungs are grossly clear. The heart is normal in size. No displaced fractures. IMPRESSION: No acute intrathoracic process suspected.
--- NOTE | 2018-06-29 20:34 | RAD REPORT ---
EXAM DESCRIPTION: CT - Head Brain Wo Cont - 06/29/2018 8:19 pm CLINICAL HISTORY: SEIZURE COMPARISON: No comparisons TECHNIQUE: All CT scans are performed using dose optimization technique as appropriate and may inclu de automated exposure control or mA/KV adjustment according to patient size. FINDINGS: No intracranial hemorrhage, hydrocephalus or extra-axial fluid collection.No areas of brai n edema or evidence of midline shift. The paranasal sinuses and mastoids are clear. The calvarium is intact. IMPRESSION: No acute intracranial abnormality.
[2018-06-29 21:13] LABS: Absolute Lymphocytes (CBC) 1.9 K/uL (0.7-4.9); Absolute Monocytes 0.7 K/uL (0.1-1.3); Absolute Neutrophil 5.5 K/uL (1.8-8.0); Basophils % 0.4 % (0-1.3); Eosinophils % 1.4 % (0-4.4); Hematocrit 32.7 % (36.0-45.0); Lymphocytes % 23.1 % (15.3-44.8); MCV 93.2 fL (80-100); MPV 8.2 fL (7.6-11.3); Monocytes % 8.9 % (3.3-12.3); RBC Red Blood Cell Count 3.51 M/uL (3.86-4.86)
[2018-06-29 21:19] LABS: Protime INR 1.06
[2018-06-29 21:33] LABS: ALT/SGPT 34 U/L (12-78); AST/SGOT 39 U/L (15-37); Albumin 3.7 g/dL (3.4-5.0); Alkaline Phosphatase 78 U/L (45-117); BUN Blood Urea Nitrogen 14 mg/dL (7-18); Bicarbonate 27 mmol/L (21-32); Bilirubin Direct 0.1 mg/dL (0-0.2); Bilirubin Total 0.4 mg/dL (0.2-1.0); Glucose Level 114 mg/dL (74-106); NT PRO-BNP 131 pg/mL (<125); Potassium 3.4 mmol/L (3.5-5.1); Sodium Level 142 mmol/L (136-145); Troponin (Emerg Dept Use Only) < 0.02 ng/mL (0.0-0.045)
[2018-06-29] MEDS ORDERED: HYDROCODONE/APAP 5/325 MG TAB ONE (21:49)
--- NOTE | 2018-06-29 22:10 | ER ---
Nurse's Notes [facility] Name: Zahida Bowman Age: 53 yrs Sex: Female : 1965 Arrival Date: 06/29/2018 Time: 19:46 Bed 6 Private MD: Diagnosis: Seizure disorder Presentation: 06/29 19:48 Presenting complaint: Patient states: "I was walking on [address] with friends tl2 and I felt my chest hurt and then I had a seizure." Pt was post ictal when EMS arrived, is AOx4 in triage. Pt has not taken seizure medication since . Transition of care: patient was not received from another setting of care. Onset of symptoms was June 29, 2018 at 06:30. Risk Assessment: Do you want to hurt yourself or someone else? Patient reports no desire to harm self or others. Initial Sepsis Screen: Does the patient meet any 2 criteria? No. Patient's initial sepsis screen is negative. Does the patient have a suspected source of infection? No. Patient's initial sepsis screen is negative. Care prior to arrival: None. 19:48 Method Of Arrival: EMS: [facility] tl2 19:48 Acuity: GA 3 tl2 Triage Assessment: 19:51 General: Appears in no apparent distress. uncomfortable, Behavior is calm, cooperative, tl2 appropriate for age. Pain: Denies pain. Neuro: Level of Consciousness is awake, alert, obeys commands, Oriented to person, place, time, situation, Speech is normal. Cardiovascular: Denies chest pain. Respiratory: Airway is patent Respiratory effort is even, unlabored, Respiratory pattern is regular, symmetrical. GI: No signs and/or symptoms were reported involving the gastrointestinal system. Derm: Skin is pink, warm \\T\\ dry. Historical: - Allergies: 19:51 Iodine; tl2 19:51 IV contrast; tl2 19:51 pcn; tl2 19:51 Tessalon Perles; tl2 19:51 Demerol; tl2 19:51 Dilaudid; tl2 - Home Meds: 19:51 Depakote 500 mg Oral TbEC once daily [Active]; metformin 500 mg Oral Tb24 1 tab once tl2 daily [Active]; Prozac 40 mg Oral cap 1 cap once daily [Active]; - PMHx: 19:51 COPD; Seizures; Diabetes - NIDDM; tl2 - Immunization history:: Adult Immunizations up to date. - Social history:: Smoking status: Patient/guardian denies using tobacco. - Ebola Screening: : No symptoms or risks identified at this time. Screenin:52 Abuse screen: Denies threats or abuse. Nutritional screening: No deficits noted. tl2 Tuberculosis screening: No symptoms or risk factors identified. Fall Risk Fall in past 12 months (25 points). Assessment: 19:51 General: see triage assessment. tl2 20:31 Reassessment: Called lab to obtain blood samples. Notified charge nurse of need for US tl2 IV. 20:57 Reassessment: Patient appears in no apparent distress at this time. Patient and/or tl2 family updated on plan of care and expected duration. Pain level reassessed. Patient is alert, oriented x 3, equal unlabored respirations, skin warm/dry/pink. Awaiting lab results. 21:45 Reassessment: Patient appears in no apparent distress at this time. Patient and/or tl2 family updated on plan of care and expected duration. Pain level reassessed. Patient is alert, oriented x 3, equal unlabored respirations, skin warm/dry/pink. Pt requested pain medication for pain in her head, notified, see MAR Patient states feeling better. 22:21 Reassessment: Patient appears in no apparent distress at this time. Patient and/or tl2 family updated on plan of care and expected duration. Pain level reassessed. Patient is alert, oriented x 3, equal unlabored respirations, skin warm/dry/pink. Will discharge pt when her ride arrives. Patient states feeling better. Vital Signs: 19:51 BP 128 / 57; Pulse 96; Resp 18; Temp 98.4(O); Pulse Ox 97% ; Weight 90.72 kg; Height 5 tl2 ft. 6 in. (167.64 cm); Pain 0/10; 20:56 BP 105 / 42; Pulse 81; Resp 18; Pulse Ox 100% on R/A; tl2 21:44 BP 98 / 46; Pulse 81; Resp 18; Pulse Ox 99% on R/A; tl2 22:20 BP 102 / 54; Pulse 76; Resp 22; Pulse Ox 99% on R/A; Pain 2/10; tl2 19:51 Body Mass Index 32.28 (90.72 kg, 167.64 cm) tl2 Van Coma Score: 19:51 Eye Response: spontaneous(4). Verbal Response: oriented(5). Motor Response: obeys tl2 commands(6). Total: 15. ED Course: 19:46 Patient arrived in ED. ds1 19:48 Mi Espinoza, RN is Primary Nurse. tl2 19:49 Triage completed. tl2 19:51 Arm band placed on right wrist. tl2 19:52 Patient has correct armband on for positive identification. Bed in low position. Call tl2 light in reach. Side rails up X2. Seizure precautions initiated. 20:07 Robi Treviño MD is Attending Physician. pkl 20:15 X-ray completed. Portable x-ray completed in exam room. Patient tolerated procedure ls3 well. 20:17 XRAY Chest (1 view) In Process Unspecified. EDMS 20:19 CT Head Brain wo Cont In Process Unspecified. EDMS 20:22 CT completed. Patient tolerated procedure well. Patient moved back from CT. nj 22:21 No provider procedures requiring assistance completed. Patient did not have IV access tl2 during this emergency room visit. Administered Medications: 21:45 Drug: Codorus 5 mg-325 mg 1 tabs Route: PO; tl2 22:22 Follow up: Response: No adverse reaction; Pain is decreased tl2 Outcome: 22:09 Discharge ordered by . pkradha 22:21 Condition: stable tl2 22:21 Discharge instructions given to patient, Instructed on discharge instructions, follow up and referral plans. medication usage, Demonstrated understanding of instructions, follow-up care, medications, Prescriptions given X 1. 23:04 Discharged to home ambulatory, with family. tl2 23:04 Patient left the ED. tl2 Signatures: Dispatcher [employer] EDMS Robi Treviño MD MD pkl [place]ford, Demi ds1 Mi Espinoza, RN RN tl2 Bharat Molina Lynzie ls3
--- NOTE | 2018-06-29 22:10 | EDPHYS ---
Physician Documentation [facility] Name: Zahida Bowman Age: 53 yrs Sex: Female : 1965 Arrival Date: 06/29/2018 Time: 19:46 Bed 6 Private MD: ED Physician Robi Treviño HPI: 06/29 20:15 This 53 yrs old Female presents to ER via EMS with complaints of Seizure. pkl 20:15 The patient presents after having a single isolated seizure, the episode(s) was pkl witnessed, by a friend. Seizure onset: just prior to arrival. Patient has not been taking her seizure medication ( Depokote ) for 3 days. Historical: - Allergies: 19:51 Iodine; tl2 19:51 IV contrast; tl2 19:51 pcn; tl2 19:51 Tessalon Perles; tl2 19:51 Demerol; tl2 19:51 Dilaudid; tl2 - Home Meds: 19:51 Depakote 500 mg Oral TbEC once daily [Active]; metformin 500 mg Oral Tb24 1 tab once tl2 daily [Active]; Prozac 40 mg Oral cap 1 cap once daily [Active]; - PMHx: 19:51 COPD; Seizures; Diabetes - NIDDM; tl2 - Immunization history:: Adult Immunizations up to date. - Social history:: Smoking status: Patient/guardian denies using tobacco. - Ebola Screening: : No symptoms or risks identified at this time. ROS: 20:15 Eyes: Negative for injury, pain, redness, and discharge, ENT: Negative for injury, pkl pain, and discharge, Neck: Negative for injury, pain, and swelling. 20:15 Cardiovascular: Positive for chest pain. 20:15 Respiratory: Negative for cough, shortness of breath. 20:15 Abdomen/GI: Negative for abdominal pain, nausea, vomiting, and diarrhea. 20:15 Back: Negative for acute changes. 20:15 : Negative for urinary symptoms. 20:15 MS/extremity: Negative for acute changes. 20:15 Skin: Negative for acute changes. 20:15 Neuro: Positive for headache, seizure activity. Exam: 20:15 Head/Face: Normocephalic, atraumatic. Eyes: Pupils equal round and reactive to light, pkl extra-ocular motions intact. Lids and lashes normal. Conjunctiva and sclera are non-icteric and not injected. Cornea within normal limits. Periorbital areas with no swelling, redness, or edema. ENT: Nares patent. No nasal discharge, no septal abnormalities noted. Tympanic membranes are normal and external auditory canals are clear. Oropharynx with no redness, swelling, or masses, exudates, or evidence of obstruction, uvula midline. Mucous membranes moist. Neck: Trachea midline, no thyromegaly or masses palpated, and no cervical lymphadenopathy. Supple, full range of motion without nuchal rigidity, or vertebral point tenderness. No Meningismus. Chest/axilla: Normal chest wall appearance and motion. Nontender with no deformity. No lesions are appreciated. Cardiovascular: Regular rate and rhythm with a normal S1 and S2. No gallops, murmurs, or rubs. Normal PMI, no JVD. No pulse deficits. Respiratory: Lungs have equal breath sounds bilaterally, clear to auscultation and percussion. No rales, rhonchi or wheezes noted. No increased work of breathing, no retractions or nasal flaring. Abdomen/GI: Soft, non-tender, with normal bowel sounds. No distension or tympany. No guarding or rebound. No evidence of tenderness throughout. Back: No spinal tenderness. No costovertebral tenderness. Full range of motion. Skin: Warm, dry with normal turgor. Normal color with no rashes, no lesions, and no evidence of cellulitis. MS/ Extremity: Pulses equal, no cyanosis. Neurovascular intact. Full, normal range of motion. Neuro: Awake and alert, GCS 15, oriented to person, place, time, and situation. Cranial nerves II-XII grossly intact. Motor strength 5/5 in all extremities. Sensory grossly intact. Cerebellar exam normal. Normal gait. Vital Signs: 19:51 BP 128 / 57; Pulse 96; Resp 18; Temp 98.4(O); Pulse Ox 97% ; Weight 90.72 kg; Height 5 tl2 ft. 6 in. (167.64 cm); Pain 0/10; 20:56 BP 105 / 42; Pulse 81; Resp 18; Pulse Ox 100% on R/A; tl2 21:44 BP 98 / 46; Pulse 81; Resp 18; Pulse Ox 99% on R/A; tl2 22:20 BP 102 / 54; Pulse 76; Resp 22; Pulse Ox 99% on R/A; Pain 2/10; tl2 19:51 Body Mass Index 32.28 (90.72 kg, 167.64 cm) tl2 Van Coma Score: 19:51 Eye Response: spontaneous(4). Verbal Response: oriented(5). Motor Response: obeys tl2 commands(6). Total: 15. MDM: 20:07 Patient medically screened. pkl 22:06 Data reviewed: vital signs, nurses notes, lab test result(s), radiologic studies, CT pkl scan. ED course: Patient feeling better. Asymptomatic. Advised to take her seizure medication and follow up with her Neurologist in a few days. 06/29 20:04 Order name: Basic Metabolic Panel; Complete Time: 22:04 tl2 06/29 20:04 Order name: CBC with Diff; Complete Time: 22:04 tl2 06/29 20:04 Order name: LFT's; Complete Time: 22:04 2 06/29 20:04 Order name: Magnesium; Complete Time: 22:04 2 06/29 20:04 Order name: NT PRO-BNP; Complete Time: 22:04 2 06/29 20:04 Order name: PT-INR; Complete Time: 22:04 2 06/29 20:04 Order name: CT Head Brain wo Cont; Complete Time: 22:04 2 06/29 20:04 Order name: Troponin (emerg Dept Use Only); Complete Time: 22:04 2 06/29 20:04 Order name: XRAY Chest (1 view); Complete Time: 22:04 2 06/29 20:04 Order name: EKG; Complete Time: 20:05 2 06/29 20:04 Order name: Cardiac monitoring; Complete Time: 20:05 tl2 06/29 20:04 Order name: EKG - Nurse/Tech; Complete Time: 20:05 tl2 06/29 20:04 Order name: Labs collected and sent; Complete Time: 20:56 tl2 06/29 20:04 Order name: O2 Per Protocol; Complete Time: 20:05 tl2 06/29 20:04 Order name: O2 Sat Monitoring; Complete Time: 20:05 tl2 Administered Medications: 21:45 Drug: Cost 5 mg-325 mg 1 tabs Route: PO; tl2 22:22 Follow up: Response: No adverse reaction; Pain is decreased tl2 Disposition: 06/29/18 22:09 Discharged to Home. Impression: Seizure disorder. - Condition is Stable. - Prescriptions for Depakote 500 mg Oral Tablet, Delayed Release (E.C.) - take 1 tablet by ORAL route once daily; 30 tablet. - Medication Reconciliation Form, Thank You Letter, Antibiotic Education, Prescription Opioid Use form. - Follow up: Private Physician; When: 2 - 3 days; Reason: Re-evaluation by your physician. - Problem is new. - Symptoms have improved. Signatures: Dispatcher [employer] EDMS Robi Treviño MD MD pkl Mi Espinoza RN RN tl2 Corrections: (The following items were deleted from the chart) 22:23 20:04 IV Saline Lock ordered. tl2 tl2 23:04 22:09 06/29/2018 22:09 Discharged to Home. Impression: Seizure disorder. Condition is tl2 Stable. Forms are Medication Reconciliation Form, Thank You Letter, Antibiotic Education, Prescription Opioid Use. Follow up: Private Physician; When: 2 - 3 days; Reason: Re-evaluation by your physician. Problem is new. Symptoms have improved. pkl
--- NOTE | 2018-06-30 07:34 | EKG ---
Test Date: 2018-06-29 Test Time: 19:58:59 Warp Coiler: SHARAD MEASUREMENT RESULTS: Intervals: Rate: 76 RI: 138 QRSD: 92 QT: 416 QTc: 468 Lyons: P: 77 RI: 138 QRS: 90 T: 21 INTERPRETIVE STATEMENTS: Normal sinus rhythm Rightward axis Borderline ECG No previous ECG available for comparison Electronically Signed On 06-30-18 07:33:33 WEB ART DIRECTOR by Kayden Branham
== END 2018-06-29 23:04 | disposition home or self-care (01) ==
LOC: ER 19:39
DX: G40.909 Epilepsy, unspecified, not intractable, without status epilepticus (principal); E11.9 Type 2 diabetes mellitus without complications; Z79.84 Long term (current) use of oral hypoglycemic drugs; Z79.899 Other long term (current) drug therapy
CPT/HCPCS: 36415; 70450; 71045; 80048; 80076; 83735; 83880; 84484; 85025; 85610; 93005; 99284

== ENCOUNTER 2019-10-01 20:34 | Emergency (ER) | payer OTHER ==
--- OUTSIDE RECORDS SUMMARY | 2019-10-01 20:38 | XMS REPORT | Summary of Care ---
:1965 Author Name MINISTERIO KERN DPM Address Unavailable Unavailable , Care Team Providers Name Role Phone MINISTERIO KERN DPM Unavailable Unavailable LUL CERVANTES, MARLON Unavailable Unavailable BESSY BLOOM, CAYETANO Yañez Unavailable Unavailable MING FRAZIER MD Unavailable Unavailable KAYLEIGH BARBA MD Unavailable Unavailable CHELSIE BLOOM, KENNY Unavailable Unavailable ERLIN CORTES UT, MINISTERIO S Unavailable Unavailable Unavailable Unavailable Unavailable Functional Status Name Dates Details Functional status health issues are not documented Status: Name Dates Details Cognitive status health issues are not documented Status: Problems Name Dates Details Pes cavus of left foot (736.73, Q66.7) Status: Active Muscle weakness of lower extremity (728.87, M62.81) Status: Active Plantar fasciitis, left (728.71, M72.2) Status: Active Medications Name Dates Details PROzac 40 MG Oral Capsule Refills: 0 Active Abilify TABS Refills: 0 Active Motrin IB TABS Refills: 0 Active Allergies and Adverse Reactions Name Dates Details Dilaudid (Allergy) Status: Active iodine (Allergy) Status: Active Penicillins (Allergy) Status: Active Past Medical History Name Dates Details History of Depression (311, F32.9) Status: Resolved Procedures Procedure Dates Details History of Foot Surgery Completed Immunization Name Dates Details Immunizations not documented Social History Name Dates Details Unknown if ever smoked Vital Signs Date Test Result Details No Known Vitals to report Results Date Description Value Details Results not documented Plan of Care Name Dates Details Planned Observations Planned Goals not documented Interventions Provided Labs/Procedures/Imaging[O] Xray FOOT COMPLETE MIN. OF 3 VIEWS; Done: 17 Nov 2018PlanPatient Education/Instructions: Patient Education Provided Reassurance The patient was provided a Dress Fitter prescription for custom orthotics. Follow Up: Please schedule an appointment as needed for any future problems or concerns. Instructions Name Dates Details Instructions not documented Encounters Appointment; MINISTERIO KERN DPM On: 11-Dec-2016 8:30 Encounter Diagnosis: Problem not documented Appointment; MING FRAZIER M.D. On: 24-Dec-2016 15:00 Encounter Diagnosis: Problem not documented Appointment; MING FRAZIER M.D. On: 02-Jan-2017 9:30 Encounter Diagnosis: Problem not documented Appointment; MING FRAZIER M.D. On: 09-Jan-2017 14:00 Encounter Diagnosis: Problem not documented Appointment; MING FRAZIER M.D. On: 20-Feb-2017 9:30 Encounter Diagnosis: Problem not documented Appointment; MINISTERIO KERN DPM On: 26-Feb-2017 9:15 Encounter Diagnosis: Problem not documented Appointment; MING FRAZIER M.D. On: 08-Mar-2017 11:00 Encounter Diagnosis: Problem not documented Appointment; MING FRAZIER M.D. On: 18-Mar-2017 9:30 Encounter Diagnosis: Problem not documented Appointment; MING FRAZIER M.D. On: 21-Mar-2017 13:30 Encounter Diagnosis: Problem not documented Appointment; MINISTERIO KERN DPM On: 04-Jun-2017 14:45 Encounter Diagnosis: Problem not documented Appointment; MINISTERIO KERN DPM On: 12-Jul-2017 10:15 Encounter Diagnosis: Problem not documented Appointment; MINISTERIO KERN DPM On: 28-Aug-2017 7:30 Encounter Diagnosis: Problem not documented Appointment; MINISTERIO KERN DPM On: 06-Sep-2017 11:00 Encounter Diagnosis: Problem not documented Appointment; MINISTERIO KERN DPM On: 24-Oct-2017 13:45 Encounter Diagnosis: Problem not documented Appointment; MINISTERIO KERN DPM On: 17-Nov-2018 11:15 Encounter Diagnosis: Problem not documented
--- OUTSIDE RECORDS SUMMARY | 2019-10-01 20:45 | XMS REPORT ---
:1965 [facility] Address [address] [place] [address] [address]. [address] [place] [address] Care Team Providers Name Role Phone VENU DEL RIO, DR CHAPITO STUART Unavailable Unavailable ENRICO, DR JIM Diane Unavailable Unavailable EDUAR, DR SHASHANK Corley Unavailable Unavailable CUELLO, DR HULL Unavailable Unavailable GRECO, DR MINISTERIO BARRERA Unavailable Unavailable BA, DR BAH Unavailable Unavailable ARMAS, MR LARA Unavailable Unavailable HERRERA, DR SUPA Rojas Unavailable Unavailable CERNA, DR ROMO Unavailable Unavailable ENNABI, DR LEÓN Unavailable Unavailable UMAH, DR SALGADO Unavailable Unavailable DIAZ, DR GOINS Unavailable Unavailable ALISON, DR JUSTUS Sears Unavailable Unavailable ROOPA, DR URBINA Unavailable Unavailable CONTIDARÍO Unavailable Unavailable GORE, DR ALVAREZ Unavailable Unavailable HOSSAIN, DR LISA SANTIZO Unavailable Unavailable OJIAKU, DR JUNG Unavailable Unavailable BARBA, DR KAYLEIGH Ballesteros Unavailable Unavailable CERNA, DR ANISH Alvarez Unavailable Unavailable OEI, LEONIDES Unavailable Unavailable TIFFANIE, DR POPE Unavailable Unavailable VACHMIKAI, DR HENRIQUEZ Unavailable Unavailable Problems This patient has no known problems. Allergies, Adverse Reactions, Alerts This patient has no known allergies or adverse reactions. Medications This patient has no known medications. Encounters Start End Encounter Admission Attending Care Care Encounter Date/Time Date/Time Type Type Clinicians Facility Department ID 2019-06-17 Outpatient [facility] PUL [id number] 16:48:53 2018-12-31 Inpatient C VENU [facility] PT [id number] 11:00:00 CHAPITO DEL RIO 2019-08-31 2019-09-03 Outpatient JASWANT LEAL TELE [id number] 20:45:00 15:28:00 JIM 2019-06-08 2019-06-08 Emergency E EDUAR [facility] ECC [id number] 18:06:00 20:58:00 SHASHANK 2019-06-05 2019-06-05 Emergency E MHFB MHFB [id number] 16:38:00 16:38:00 2019-05-29 2019-05-28 Inpatient E [facility] MED [id number] 02:21:00 19:41:00 2019-05-06 2019-05-06 Emergency E DELLA CUELLO [facility] ECC [id number] 07:21:00 08:15:00 2019-04-30 2019-04-30 Outpatient MH MED [id number] 05:26:00 05:26:00 2019-03-24 2019-03-24 Emergency E DELLA CUELLO [facility] ECC [id number] 19:16:00 23:59:00 2019-03-12 2019-03-12 Emergency E ANGUS, [facility] ECC [id number] 09:14:00 12:10:00 MINISTERIO BARRERA 2019-02-14 2019-02-14 Emergency E EDUAR, [facility] ECC [id number] 07:09:00 09:00:00 SHASHANK 2019-01-19 2019-01-19 Emergency E NIURKA JAIMES [facility] ECC [id number] 12:30:00 13:05:00 2019-01-04 2019-01-04 Emergency E ARMAS, [facility] ECC [id number] 07:53:00 12:50:00 JANE 2018-12-31 2018-12-31 Emergency E HERRERA, [facility] ECC [id number] 09:18:00 09:30:00 SUPA 2018-12-24 2018-12-24 Outpatient C VENU [facility] RAD [id number] 08:01:00 23:59:00 CHAPITO DEL RIO 2018-12-08 2018-12-08 Emergency E NEHEMIAH, [facility] E[facility] [id number] 10:19:00 11:49:00 DEMETRIUS 2018-11-11 2018-11-11 Emergency E ENNASHORTY, [facility] ECC [id number] 16:01:00 17:24:00 ROMELIA 2018-11-10 2018-11-10 Outpatient C YARED, [facility] RAD [id number] 09:23:00 23:59:00 DAMIAN 2018-11-03 2018-11-03 Outpatient C EMILY [facility] PT [id number] 09:28:00 11:10:00 BUSTER 2018-11-02 2018-11-02 Emergency E ALISON, [facility] [id number] 11:55:00 12:10:00 JUSTUS 2018-10-21 2018-10-21 Outpatient C YARED, [facility] RAD [id number] 08:57:00 23:59:00 DAMIAN 2018-10-01 2018-10-01 Emergency E NEHEMIAH, [facility] [id number] 17:34:00 18:50:00 DEMETRIUS 2018-09-16 2018-09-16 Emergency E CARLITOS [facility] [id number] 18:29:00 21:07:00 2018-09-04 2018-09-05 Emergency E EDUAR, [facility] [id number] 16:00:00 09:45:00 SHASHANK 2018-06-07 2018-06-07 Emergency E NEHEMIAH, [facility] [id number] 17:26:00 18:40:00 DEMETRIUS 2018-05-29 2018-05-29 Outpatient [facility] PUL [id number] 06:58:00 06:58:00 2018-05-14 2018-05-14 Emergency E SUSHILA, [facility] [id number] 13:30:00 14:35:00 DARÍO 2018-05-07 2018-05-08 Emergency E CARLITOS BLAS [facility] E[facility] [id number] 21:59:00 00:45:00 2018-04-17 2018-04-17 Emergency E SUSHILA, [facility] [id number] 17:02:00 19:49:00 DARÍO 2018-04-13 2018-04-13 Emergency E CARLITOS BLAS [facility] [id number] 04:29:00 05:42:00 2018-03-25 2018-03-25 Emergency E NEHEMIAH, [facility] [id number] 13:29:00 17:49:00 DEMETRIUS 2018-03-17 2018-03-20 Inpatient E GORE, [facility] TELE [id number] 00:32:00 17:10:00 ANTONIO 2018-03-14 2018-03-14 Emergency E CUELLODELLA Clark [facility] ECC [id number] 19:10:00 19:38:00 2018-02-16 2018-02-16 Emergency E HOSSAIN, [facility] [id number] 08:08:00 09:43:00 LISA 2017-12-06 2017-12-07 Emergency E NICCI, [facility] [id number] 17:59:00 02:30:00 ERICH 2017-10-29 2017-10-29 Emergency E SUSHILA, [facility] [id number] 20:03:00 23:00:00 DARÍO 2017-10-21 2017-10-21 Emergency E JAVIER, [facility] [id number] 17:18:00 18:31:00 SUPA 2017-08-14 2017-08-14 Outpatient C JAMESON, [facility] RAD [id number] 10:09:00 23:59:00 KAYLEIGH 2017-07-28 2017-07-28 Emergency E ANISH CERNA [facility] ECC [id number] 13:30:00 15:20:00 2017-02-18 2017-02-18 Emergency E DELLA CUELLO [facility] [id number] 10:00:00 10:50:00 2016-08-16 2016-08-16 Outpatient C CUATE, [facility] ENDO [id number] 08:34:00 12:00:00 MARTINEZ 2016-07-04 2016-07-07 Inpatient E TIFFANIE, [facility] MED [id number] 13:15:00 16:58:00 TOSHIA Results Test Description Test Time Test Comments Text Results Atomic Results Result Comments BASIC METABOLIC PANEL 2019-09-03 06:15:00 Test Item Value Reference Range Comments GLUCOSE (test code=06D) 101 mg/dL 75-100 SODIUM (test code=01A) 138 mmol/L 136-145 POTASSIUM (test code=01B) 3.5 mmol/L 3.6-5.1 CHLORIDE (test code=04A) 106 mmol/L 98-107 CO2 (test code=02A) 24 mmol/L 22-32 ANION GAP (test code=ANG) 11.5 mmol/L BUN (test code=05D) 5 mg/dL 7-18 CREATININE (test code=03E) 0.7 mg/dL 0.4-1.1 BUN/CREA (test code=BCR) 7 12-20 CALCIUM (test code=09D) 8.9 mg/dL 8.3-9.5 GLUCOMETER GLUCOSE- LAB USE [id number] 06:14:00 Test Item Value Reference Range Comments GLUCOMETER (test code=GMG) 115 mg/dL 70-100 CLEANED METERMeter ID: [id number]: [id number] GULSHAN FIELDS CBC (INCLUDES AUTOMATED DIFFERENTIAL)2019-09-03 05:57:00 Test Item Value Reference Range Comments WBC (test code=WBC) 4.8 10\S\3/uL 4.5-11.0 RBC (test code=RBC) 3.47 10\S\6/uL 4.20-5.60 HGB (test code=HBG) 10.4 g/dL 12.0-15.5 HCT (test code=HCT) 31.5 % 35.0-44.0 MCV (test code=MCV) 90.8 fL 81.0-99.0 MCH (test code=MCH) 30.0 pg 27.0-31.0 MCHC (test code=MCHC) 33.0 g/dL 32.0-36.0 RDW (test code=RDW) 14.0 % 11.5-14.5 PLT (test code=PLT) 221 10\S\3/uL 130-400 MPV (test code=MPV) 9.5 fL 9.4-12.4 NEUTROP # (test code=NE#) 2.0 10\S\3/uL 1.6-8.0 LYMPH # (test code=LY#) 1.9 10\S\3/uL 1.1-3.5 MONOCYTE # (test code=MO#) 0.6 10\S\3/uL 0.0-1.1 EOSINOPH # (test code=EO#) 0.2 10\S\3/uL 0.0-0.7 BASOPHIL # (test code=BA#) 0.0 10\S\3/uL 0.0-0.3 IG # (test code=IG#) 0.01 10\S\3/uL 0.00-0.06 NRBC # (test code=NRBC#) 0.00 10\S\3/uL 0.00-0.01 NEUTROPH % (test code=NE%) 42.5 % 35.0-73.0 LYMPH % (test code=LY%) 39.7 % 20.0-55.0 MONO % (test code=MO%) 11.8 % 2.5-10.0 EOSINOPH % (test code=EO%) 5.0 % 0.0-5.0 BASOPHIL % (test code=BA%) 0.8 % 0.0-2.0 IG % (test code=IG%) 0.2 % 0.0-0.8 NRBC% (test code=NRBC%) 0.0 % 0.0-0.2 MANDIFF (test code=MDIFF) NO NO RBC MORPH (test code=RBCMOR) NORMAL GLUCOMETER GLUCOSE- LAB USE [id number] 20:18:00 Test Item Value Reference Range Comments GLUCOMETER (test code=GMG) 126 mg/dL 70-100 CLEANED METERMeter ID: [id number]: [id number] ROMary Jane ARAMBULAULAM GLUCOMETER GLUCOSE- LAB USE [id number] 11:33:00 Test Item Value Reference Range Comments GLUCOMETER (test code=GMG) 101 mg/dL 70-100 CLEANED METERMeter ID: [id number]: [id number] [employer] GLUCOMETER GLUCOSE- LAB USE [id number] 06:07:00 Test Item Value Reference Range Comments GLUCOMETER (test code=GMG) 95 mg/dL 70-100 Meter ID: [id number]: 9538 VELADONNA JENNIFER GLUCOMETER GLUCOSE- LAB USE [id number] 20:57:00 Test Item Value Reference Range Comments GLUCOMETER (test code=GMG) 95 mg/dL 70-100 CLEANED METERMeter ID: [id number]: [id number] GULSHAN DIAMOND GLUCOMETER GLUCOSE- LAB USE [id number] 15:47:00 Test Item Value Reference Range Comments GLUCOMETER (test code=GMG) 120 mg/dL 70-100 CLEANED METERMeter ID: [id number]: [id number] VIRI AGUIRRE GLUCOMETER GLUCOSE- LAB USE [id number] 11:05:00 Test Item Value Reference Range Comments GLUCOMETER (test code=GMG) 107 mg/dL 70-100 CLEANED METERMeter ID: [id number]: [id number] [employer] BASIC METABOLIC [id number] 06:26:00 Test Item Value Reference Range Comments GLUCOSE (test code=06D) 115 mg/dL 75-100 SODIUM (test code=01A) 138 mmol/L 136-145 POTASSIUM (test code=01B) 3.6 mmol/L 3.6-5.1 CHLORIDE (test code=04A) 105 mmol/L 98-107 CO2 (test code=02A) 27 mmol/L 22-32 ANION GAP (test code=ANG) 9.6 mmol/L BUN (test code=05D) 6 mg/dL 7-18 CREATININE (test code=03E) 0.8 mg/dL 0.4-1.1 BUN/CREA (test code=BCR) 8 12-20 CALCIUM (test code=09D) 8.8 mg/dL 8.3-9.5 GLUCOMETER GLUCOSE- LAB USE [id number] 06:25:00 Test Item Value Reference Range Comments GLUCOMETER (test code=GMG) 131 mg/dL 70-100 Meter ID: [id number]: [id number] SAHIL [address] CBC (INCLUDES AUTOMATED DIFFERENTIAL)2019-09-01 06:13:00 Test Item Value Reference Range Comments WBC (test code=WBC) 6.6 10\S\3/uL 4.5-11.0 RBC (test code=RBC) 3.54 10\S\6/uL 4.20-5.60 HGB (test code=HBG) 10.6 g/dL 12.0-15.5 HCT (test code=HCT) 31.1 % 35.0-44.0 MCV (test code=MCV) 87.9 fL 81.0-99.0 MCH (test code=MCH) 29.9 pg 27.0-31.0 MCHC (test code=MCHC) 34.1 g/dL 32.0-36.0 RDW (test code=RDW) 13.8 % 11.5-14.5 PLT (test code=PLT) 250 10\S\3/uL 130-400 MPV (test code=MPV) 9.1 fL 9.4-12.4 NEUTROP # (test code=NE#) 2.9 10\S\3/uL 1.6-8.0 LYMPH # (test code=LY#) 2.6 10\S\3/uL 1.1-3.5 MONOCYTE # (test code=MO#) 0.7 10\S\3/uL 0.0-1.1 EOSINOPH # (test code=EO#) 0.2 10\S\3/uL 0.0-0.7 BASOPHIL # (test code=BA#) 0.0 10\S\3/uL 0.0-0.3 IG # (test code=IG#) 0.02 10\S\3/uL 0.00-0.06 NRBC # (test code=NRBC#) 0.00 10\S\3/uL 0.00-0.01 NEUTROPH % (test code=NE%) 44.6 % 35.0-73.0 LYMPH % (test code=LY%) 39.8 % 20.0-55.0 MONO % (test code=MO%) 11.2 % 2.5-10.0 EOSINOPH % (test code=EO%) 3.5 % 0.0-5.0 BASOPHIL % (test code=BA%) 0.6 % 0.0-2.0 IG % (test code=IG%) 0.3 % 0.0-0.8 NRBC% (test code=NRBC%) 0.0 % 0.0-0.2 MANDIFF (test code=MDIFF) NO NO RBC MORPH (test code=RBCMOR) NORMAL GLUCOMETER GLUCOSE- LAB USE [id number] 23:37:00 Test Item Value Reference Range Comments GLUCOMETER (test code=GMG) 126 mg/dL 70-100 Meter ID: [id number]: [id number] SAHIL [address] DIRECT INFLUENZA A AND B [id number] 22:23:00 Test Item Value Reference Range Comments Direct Exam (test code=DE3) PRESUMPTIVE NEGATIVE FOR THE PRESENCE OF INFLUENZA ANTIGEN PRO TIME AND [id number] 21:49:00 Test Item Value Reference Range Comments PT (test code=TT) 12.7 s 9.8-13.6 INR (test code=INR) 1.1 INRH (test code=INRH) SUGGESTED THERAPEUTIC RANGE FOR INR: 2.5 - 3.5 For Patients with Prosthetic Valves or Patients with recurrent Thromboembolic Events 2.0 - 3.0 For Most Other Applications PTT (test code=PTT) 30.1 s 20.2-38.0 PTTH (test code=PTTH) To monitor the effectiveness of heparin, we offer the Anti-Xa (Heparin Assay). It can be used for either unfractionated or LMW Heparin. Order Code is ANTI-XA COMPREHENSIVE METABOLIC [id number] 21:43:00 Test Item Value Reference Range Comments GLUCOSE (test code=06D) 128 mg/dL 75-100 SODIUM (test code=01A) 137 mmol/L 136-145 POTASSIUM (test code=01B) 4.0 mmol/L 3.6-5.1 CHLORIDE (test code=04A) 102 mmol/L 98-107 CO2 (test code=02A) 28 mmol/L 22-32 ANION GAP (test code=ANG) 11.0 mmol/L BUN (test code=05D) 6 mg/dL 7-18 CREATININE (test code=03E) 0.9 mg/dL 0.4-1.1 BUN/CREA (test code=BCR) 7 12-20 CALCIUM (test code=09D) 9.1 mg/dL 8.3-9.5 BILI TOTAL (test code=11A) 0.7 mg/dL 0.2-1.0 PROTEIN (test code=07D) 7.0 g/dL 6.4-8.2 ALBUMIN (test code=08D) 3.4 g/dL 3.5-4.8 GLOBULIN (test code=GLB) 3.6 g/dL 1.5-3.8 ALB/GLOB (test code=AGRR) 0.9 1.0-2.6 ALK PHOS (test code=35A) 123 IU/L 42-121 AST (test code=30A) 52 IU/L <=42 ALT (test code=31A) 44 IU/L <=78 CBC (INCLUDES AUTOMATED DIFFERENTIAL)2019-08-31 21:27:00 Test Item Value Reference Range Comments WBC (test code=WBC) 8.3 10\S\3/uL 4.5-11.0 RBC (test code=RBC) 3.91 10\S\6/uL 4.20-5.60 HGB (test code=HBG) 11.6 g/dL 12.0-15.5 HCT (test code=HCT) 34.1 % 35.0-44.0 MCV (test code=MCV) 87.2 fL 81.0-99.0 MCH (test code=MCH) 29.7 pg 27.0-31.0 MCHC (test code=MCHC) 34.0 g/dL 32.0-36.0 RDW (test code=RDW) 13.7 % 11.5-14.5 PLT (test code=PLT) 247 10\S\3/uL 130-400 MPV (test code=MPV) 9.1 fL 9.4-12.4 NEUTROP # (test code=NE#) 4.5 10\S\3/uL 1.6-8.0 LYMPH # (test code=LY#) 2.6 10\S\3/uL 1.1-3.5 MONOCYTE # (test code=MO#) 0.9 10\S\3/uL 0.0-1.1 EOSINOPH # (test code=EO#) 0.3 10\S\3/uL 0.0-0.7 BASOPHIL # (test code=BA#) 0.1 10\S\3/uL 0.0-0.3 IG # (test code=IG#) 0.03 10\S\3/uL 0.00-0.06 NRBC # (test code=NRBC#) 0.00 10\S\3/uL 0.00-0.01 NEUTROPH % (test code=NE%) 54.2 % 35.0-73.0 LYMPH % (test code=LY%) 31.2 % 20.0-55.0 MONO % (test code=MO%) 10.4 % 2.5-10.0 EOSINOPH % (test code=EO%) 3.1 % 0.0-5.0 BASOPHIL % (test code=BA%) 0.7 % 0.0-2.0 IG % (test code=IG%) 0.4 % 0.0-0.8 NRBC% (test code=NRBC%) 0.0 % 0.0-0.2 MANDIFF (test code=MDIFF) NO NO RBC MORPH (test code=RBCMOR) NORMAL U/S VENOUS DOPPLER RT LOWER [id number] 19:16:55HISTORY: Pain in the right lower limbLocation : [id number]: Real time chaudhary scale, color flowand Doppler spectral imagingof the right lower extremity was performed.There is good flow and compressibility within the common femoral, proximal andmid superficial femoral veins. There is diminished flow and compressibilitywithin the distal superficial femoral, popliteal, posterior tibial and peronealveins. Anterior tibial vein is patent.IMPRESSION:1. Positive for deep venous thrombosis within the distal superficial femoralvein extending into the popliteal, posterior tibial and peroneal veins.[id number] 18:55:00 Test Item Value Reference Range Comments COLOR (test code=COLU) YELLOW YELLOW CLARITY (test code=CLA) CLEAR CLEAR GLUCOSE UR (test code=UA GLUCOSE) NEGATIVE NEGATIVE BILI UR (test code=BILE) NEGATIVE NEGATIVE KETONES UR (test code=AMELIA) NEGATIVE NEGATIVE SP GRAVITY (test code=SPGR) 1.013 1.005-1.030 PH UR (test code=PH) 6.5 4.5-8.0 PROTEIN UR (test code=PU) NEGATIVE NEGATIVE UROBIL UR (test code=UROQ) 1.0 EU/dL 0.2-1.0 NITRITE UR (test code=NITRITE) NEGATIVE NEGATIVE BLOOD UR (test code=UA BLOOD) NEGATIVE NEGATIVE LEUK ES UR (test code=LEUK) NEGATIVE NEGATIVE XR CHEST 2 [id number] 18:10:53Examination: Chest 2 viewsLocation code: [id number]: Chest June 08, 2019Discussion:Clinical history is remarkable for cough. Cardiac silhouette is normal in size.No consolidation, effusion, or pneumothorax is appreciated. The osseousstructures are unremarkable.Impression: No acute cardiopulmonaryabnormality.URINALYSIS WITH [id number] 20:46:00 Test Item Value Reference Range Comments COLOR (test code=COLU) YELLOW YELLOW CLARITY (test code=CLA) HAZY CLEAR GLUCOSE UR (test code=UA GLUCOSE) NEGATIVE NEGATIVE BILI UR (test code=BILE) NEGATIVE NEGATIVE KETONES UR (test code=AEMLIA) NEGATIVE NEGATIVE SP GRAVITY (test code=SPGR) 1.028 1.005-1.030 PH UR (test code=PH) 6.5 4.5-8.0 PROTEIN UR (test code=PU) 2+ NEGATIVE UROBIL UR (test code=UROQ) 0.2 EU/dL 0.2-1.0 NITRITE UR (test code=NITRITE) NEGATIVE NEGATIVE BLOOD UR (test code=UA BLOOD) NEGATIVE NEGATIVE LEUK ES UR (test code=LEUK) NEGATIVE NEGATIVE WBC UR (test code=UWBC) 1 /HPF 0-5 RBC UR (test code=URBC) 1 [...] NONE SPERM UR (test code=USPERM) /HPF NONE THYROID PANEL/SCREEN (TSH)2019-06-08 20:18:00 Test Item Value Reference Range Comments TSH (test code=A57) 1.030 uIU/mL 0.358-3.740 LACTIC [id number] 20:07:00 Test Item Value Reference Range Comments LACTIC ACD (test code=LA) 1.9 mmol/L 0.4-2.0 BRAIN NATRIURETIC [id number] 20:06:00 Test Item Value Reference Range Comments proBNP (test code=PBNP) 209 pg/mL 0-125 CARDIAC [id number] 20:01:00 Test Item Value Reference Range Comments TROPONIN I (test code=A84) <0.015 ng/mL 0.000-0.045 AMYLASE AND [id number] 20:00:00 Test Item Value Reference Range Comments AMYLASE (test code=10A) 65 U/L 28-100 LIPASE (test code=60A) 191 IU/L 73-393 COMPREHENSIVE METABOLIC [id number] 20:00:00 Test Item Value Reference Range Comments GLUCOSE (test code=06D) 110 mg/dL 75-100 SODIUM (test code=01A) 139 mmol/L 136-145 POTASSIUM (test code=01B) 4.6 mmol/L 3.6-5.1 CHLORIDE (test code=04A) 107 mmol/L 98-107 CO2 (test code=02A) 27 mmol/L 22-32 ANION GAP (test code=ANG) 9.6 mmol/L BUN (test code=05D) 13 mg/dL 7-18 CREATININE (test code=03E) 0.9 mg/dL 0.4-1.1 BUN/CREA (test code=BCR) 14 12-20 CALCIUM (test code=09D) 9.1 mg/dL 8.3-9.5 BILI TOTAL (test code=11A) 0.4 mg/dL 0.2-1.0 PROTEIN (test code=07D) 6.9 g/dL 6.4-8.2 ALBUMIN (test code=08D) 3.3 g/dL 3.5-4.8 GLOBULIN (test code=GLB) 3.6 g/dL 1.5-3.8 ALB/GLOB (test code=AGRR) 0.9 1.0-2.6 ALK PHOS (test code=35A) 105 IU/L 42-121 AST (test code=30A) 26 IU/L <=42 ALT (test code=31A) 45 IU/L <=78 [id number] 20:00:00 Test Item Value Reference Range Comments MAGNESIUM (test code=48A) 1.9 mg/dL 1.8-2.4 PRO TIME AND [id number] 19:56:00 Test Item Value Reference Range Comments PT (test code=TT) 10.4 s 9.8-13.6 INR (test code=INR) 0.9 INRH (test code=INRH) SUGGESTED THERAPEUTIC RANGE FOR INR: 2.5 - 3.5 For Patients with Prosthetic Valves or Patients with recurrent Thromboembolic Events 2.0 - 3.0 For Most Other Applications PTT (test code=PTT) 26.5 s 20.2-38.0 PTTH (test code=PTTH) To monitor the effectiveness of heparin, we offer the Anti-Xa (Heparin Assay). It can be used for either unfractionated or LMW Heparin. Order Code is ANTI-XA CBC (INCLUDES AUTOMATED DIFFERENTIAL)2019-06-08 19:50:00 Test Item Value Reference Range Comments WBC (test code=WBC) 9.3 10\S\3/uL 4.5-11.0 RBC (test code=RBC) 3.73 10\S\6/uL 4.20-5.60 HGB (test code=HBG) 11.3 g/dL 12.0-15.5 HCT (test code=HCT) 34.2 % 35.0-44.0 MCV (test code=MCV) 91.7 fL 81.0-99.0 MCH (test code=MCH) 30.3 pg 27.0-31.0 MCHC (test code=MCHC) 33.0 g/dL 32.0-36.0 RDW (test code=RDW) 14.4 % 11.5-14.5 PLT (test code=PLT) 232 10\S\3/uL 130-400 MPV (test code=MPV) 9.5 fL 9.4-12.4 NEUTROP # (test code=NE#) 6.2 10\S\3/uL 1.6-8.0 LYMPH # (test code=LY#) 2.1 10\S\3/uL 1.1-3.5 MONOCYTE # (test code=MO#) 0.9 10\S\3/uL 0.0-1.1 EOSINOPH # (test code=EO#) 0.1 10\S\3/uL 0.0-0.7 BASOPHIL # (test code=BA#) 0.0 10\S\3/uL 0.0-0.3 IG # (test code=IG#) 0.03 10\S\3/uL 0.00-0.06 NRBC # (test code=NRBC#) 0.00 10\S\3/uL 0.00-0.01 NEUTROPH % (test code=NE%) 66.8 % 35.0-73.0 LYMPH % (test code=LY%) 22.8 % 20.0-55.0 MONO % (test code=MO%) 9.5 % 2.5-10.0 EOSINOPH % (test code=EO%) 0.5 % 0.0-5.0 BASOPHIL % (test code=BA%) 0.1 % 0.0-2.0 IG % (test code=IG%) 0.3 % 0.0-0.8 NRBC% (test code=NRBC%) 0.0 % 0.0-0.2 MANDIFF (test code=MDIFF) NO NO CT ABDOMEN AND PELVIS W/O [id number] 19:06:23CT SCAN OF THE ABDOMEN AND PELVIS WITHOUT CONTRASTDictation Location: [id number] HISTORY: Abdominal pain prior cholecystectomy, hysterectomy,appendectomyTECHNIQUE: Helical CT of the abdomen and pelvis was performed without IV ororal contrast without complication. Coronal and Sagittal reconstructions wereobtained. This exam was performed according to our departmental dose -optimizationprogram, which includes automatic exposure control, adjustment of mA and/or kVaccording to patient size and/or use of iterative reconstruction technique.DLP: 1094 mGY *cmFINDINGS:The visualized lung bases are clear. No evidence of pleural effusion. Liveris normal in size without intrahepatic biliary dilatation or focal mass. Thereis diffuse mild fatty infiltration of the liver. The gallbladder is surgicallyabsent. The spleen and adrenal glands are normal. There is no evidence of hydronephrosis, solid renal mass , pyelonephritis or obstructing kidney stone.The pancreas is unremarkable without evidence of pancreatic mass, atrophy,calcification. There is no abdominal free fluid or adenopathy.The bowel is unremarkable without wall thickening or dilatation. There is noevidence of diverticulitis,colitis or bowel obstruction.In the pelvis, there is no free fluid or adenopathy present. The bladder andureters are normal. There is been prior hysterectomy. No evidence of ovarianmass.Mild degenerative changes are present in the spine. Vascular structures areunremarkable. No AAA. There is no free air.IMPRESSION:No acute or significant findings.XR CHEST 2 [id number] 19:03:29CHEST, TWO VIEWSDictation Location: [id number] HISTORY: [id number]: DyspneaTechnique:A frontal and lateral view were obtained. Comparison made to prior study ofFINDINGS: The visualized bony structures are normal. Aortic, hilar, and cardiac outlinesare normal. The pulmonary vasculature is normal. Lungs are clear ofinfiltrates or suspicious nodules. No pleural effusion or pneumothorax. IMPRESSION: Normal chest x-ray.GLUCOMETER GLUCOSE- LAB USE [id number] 14:24:00 Test Item Value Reference Range Comments GLUCOMETER (test code=GMG) 273 mg/dL 70-100 [id number] 00:20:00 Test Item Value Reference Range Comments COLOR (test code=COLU) YELLOW YELLOW CLARITY (test code=CLA) CLEAR CLEAR GLUCOSE UR (test code=UA GLUCOSE) 2+ NEGATIVE BILI UR (test code=BILE) NEGATIVE NEGATIVE KETONES UR (test code=AMELIA) NEGATIVE NEGATIVE SP GRAVITY (test code=SPGR) 1.010 1.005-1.030 PH UR (test code=PH) 6.5 4.5-8.0 PROTEIN UR (test code=PU) NEGATIVE NEGATIVE UROBIL UR (test code=UROQ) 0.2 EU/dL 0.2-1.0 NITRITE UR (test code=NITRITE) NEGATIVE NEGATIVE BLOOD UR (test code=UA BLOOD) NEGATIVE NEGATIVE LEUK ES UR (test code=LEUK) NEGATIVE NEGATIVE THYROID PANEL/SCREEN (TSH)2019-03-24 20:46:00 Test Item Value Reference Range Comments TSH (test code=A57) 0.514 uIU/mL 0.358-3.740 CBC WITH MANUAL [id number] 20:42:00 Test Item Value Reference Range Comments WBC (test code=WBC) 7.9 10\S\3/uL 4.5-11.0 RBC (test code=RBC) 4.07 10\S\6/uL 4.20-5.60 HGB (test code=HBG) 12.2 g/dL 12.0-15.5 HCT (test code=HCT) 36.0 % 35.0-44.0 MCV (test code=MCV) 88.5 fL 81.0-99.0 MCH (test code=MCH) 30.0 pg 27.0-31.0 MCHC (test code=MCHC) 33.9 g/dL 32.0-36.0 RDW (test code=RDW) 14.1 % 11.5-14.5 PLT (test code=PLT) 212 10\S\3/uL 130-400 MPV (test code=MPV) 9.0 fL 9.4-12.4 NEUTROP # (test code=NE#) 6.8 10\S\3/uL 1.6-8.0 LYMPH # (test code=LY#) 0.9 10\S\3/uL 1.1-3.5 MONOCYTE # (test code=MO#) 0.1 10\S\3/uL 0.0-1.1 EOSINOPH # (test code=EO#) 0.0 10\S\3/uL 0.0-0.7 BASOPHIL # (test code=BA#) 0.0 10\S\3/uL 0.0-0.3 IG # (test code=IG#) 0.06 10\S\3/uL 0.00-0.06 NRBC # (test code=NRBC#) 0.00 10\S\3/uL 0.00-0.01 NEUTROPH % (test code=NE%) 86.8 % 35.0-73.0 LYMPH % (test code=LY%) 11.5 % 20.0-55.0 MONO % (test code=MO%) 0.8 % 2.5-10.0 EOSINOPH % (test code=EO%) 0.0 % 0.0-5.0 BASOPHIL % (test code=BA%) 0.1 % 0.0-2.0 IG % (test code=IG%) 0.8 % 0.0-0.8 NRBC% (test code=NRBC%) 0.0 % 0.0-0.2 MAN DIFF (test code=HMDIFF) MANUAL DIFFERENTIAL SEG (test code=SEG) 74 % 42-75 BAND (test code=BAND) 0 % 0-8 LYMPH (test code=LYMPH) 26 % 20-51 MONO (test code=MONO) 0 % 3-11 EOS (test code=EOS) 0 % 0-10 BASO (test code=BASO) 0 % 0-2 RBC MORPH (test code=RBCMORN) NORMAL NORMAL PLT EST (test code=PLTEST) ADEQUATE ADEQUATE PLT MORPH (test code=PLTMOR) NORMAL (1.5-3 um) NORMAL TROPONIN [id number] 20:36:00 Test Item Value Reference Range Comments TROPONIN I (test code=A84) <0.015 ng/mL 0.000-0.045 AMYLASE AND [id number] 20:36:00 Test Item Value Reference Range Comments AMYLASE (test code=10A) 80 U/L 28-100 LIPASE (test code=60A) 264 IU/L 73-393 COMPREHENSIVE METABOLIC [id number] 20:36:00 Test Item Value Reference Range Comments GLUCOSE (test code=06D) 321 mg/dL 75-100 SODIUM (test code=01A) 138 mmol/L 136-145 POTASSIUM (test code=01B) 4.1 mmol/L 3.6-5.1 CHLORIDE (test code=04A) 105 mmol/L 98-107 CO2 (test code=02A) 20 mmol/L 22-32 ANION GAP (test code=ANG) 17.1 mmol/L BUN (test code=05D) 18 mg/dL 7-18 CREATININE (test code=03E) 1.4 mg/dL 0.4-1.1 BUN/CREA (test code=BCR) 13 12-20 CALCIUM (test code=09D) 8.9 mg/dL 8.3-9.5 BILI TOTAL (test code=11A) 0.2 mg/dL 0.2-1.0 PROTEIN (test code=07D) 7.7 g/dL 6.4-8.2 ALBUMIN (test code=08D) 3.6 g/dL 3.5-4.8 GLOBULIN (test code=GLB) 4.1 g/dL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 Range Comments TROPONIN I (test code=A84) <0.015 ng/mL 0.000-0.045 CKMB (test code=A49) <1.0 ng/mL <=3.6 CPK (test code=32A) 43 IU/L 26-192 XR CHEST 1 VIEW [id number] 14:44:55Exam: Chest portable erectLocation: A9Vqoumto: Z95.828: PRESENCE OF OTHER VASCULAR IMPLANTS AND [...] MORPH (test code=RBCMOR) NORMAL CT HEAD W/O [id number] 14:04:44CT brain without contrastLocation code: A1CKDULCTR HISTORY: R42: DIZZINESS AND GIDDINESS COMPARISON: 2017TECHNIQUE: [...] No acute intracranial abnormality.XR CHEST 1 VIEW [id number] 14:04:29Exam: AP chestLocation: H4Gncqnvc: R42: DIZZINESS AND GIDDINESSComparison: 2017Findings:The lungs are clear. No infiltrate or effusion is seen. The pulmonaryvasculature is normal. The heart size is normal. The mediastinal silhouette isunremarkable. The bony thorax is intact.Impression:No acute disease.ALDOSTERONE [id number] 09:17:00 Test Item Value Reference Range Comments ALDOSTERONE LC/MS/MS 2 ng/dL Adult Reference Ranges for (test drto=[id number]) Aldosterone, LC/MS/MS: Upright 8:00-10:00 am < or=28 ng/dL Upright 4:00-6:00 pm < or=21 ng/dL Supine 8:00-10:00 am 3-16 ng/dLThis test was developed and its analytical performancecharacteristics have been determined by [facility]. It has not beencleared or approved by FDA. This assay has been validatedpursuant to the CLIA regulations and is used for clinicalpurposes.TEST PERFORMED AT:[employer] [id number] [place] [address]BMEALEILEEN HAIDER MD,PHD,ANN RENIN [id number] 10:17:00 Test Item Value Reference Range Comments PLASMA RENIN 0.35 ng/mL/h 0.25-5.82 This test was developed and its ACTIVITY,LC/MS/MS analytical performancecharacteristics (test have been determined by [facility] accx=[id number]) [facility]. It has not beencleared or approved by FDA. This assay has been validatedpursuant to the CLIA regulations and is used for clinicalpurposes.TEST PERFORMED AT:[employer]/[place] [id number] [facility] [place] [address]RIEFKEILEEN HAIDER MD,PHD,ANN [id number] 09:39:00 Test Item Value Reference Range Comments ACTH, PLASMA (test 72 pg/mL 6-50 Reference range applies only to the rtiq=[id number]) specimens collectedbetween 7am-10am.TEST PERFORMED AT:[employer]/[place] [id number] [facility] [place] [address]CVXWGEILEEN HAIDER MD,PHD,ANN BLOOD [id number] 07:35:00 Test Item Value Reference Range Comments Culture Observations (test code=COB1) NO GROWTH AFTER 5 DAYS BLOOD [id number] 07:35:00 Test Item Value Reference Range Comments Culture Observations (test code=COB1) NO GROWTH AFTER 5 DAYS GLUCOMETER GLUCOSE- LAB USE [id number] 10:26:00 Test Item Value Reference Range Comments GLUCOMETER (test code=GMG) 118 mg/dL 70-100 Meter ID: [id number]: 9208 KANWAL DEMPSEY GLUCOMETER GLUCOSE- LAB USE [id number] 05:18:00 Test Item Value Reference Range Comments GLUCOMETER (test code=GMG) 142 mg/dL 70-100 CLEANED METERMeter ID: [id number]: 5169 CINDY MG BASIC METABOLIC [id number] 04:20:00 Test Item Value Reference Range Comments [...] (test code=RBCMOR) NORMAL GLUCOMETER GLUCOSE- LAB USE [id number] 20:41:00 Test Item Value Reference Range Comments GLUCOMETER (test code=GMG) 125 mg/dL 70-100 Meter ID: [id number]: 5015 SASCHASHANI DOWELLOLOLA GLUCOMETER GLUCOSE- LAB USE [id number] 15:36:00 Test Item Value Reference Range Comments GLUCOMETER (test code=GMG) 107 mg/dL 70-100 Meter ID: [id number]: 5930 AWA TRIPATHI CORTISOL [id number] 12:16:00 Test Item Value Reference Range Comments CORTISOL (test code=A10) 23.30 ug/dL 3.44-22.54 CORTISOL [id number] 11:48:00 Test Item Value Reference Range Comments CORTISOL (test code=A10) 17.20 ug/dL 3.44-22.54 CORTISOL [id number] 11:42:00 Test Item Value Reference Range Comments CORTISOL (test code=A10) 13.70 ug/dL 3.44-22.54 GLUCOMETER GLUCOSE- LAB USE [id number] 11:12:00 Test Item Value Reference Range Comments GLUCOMETER (test code=GMG) 122 mg/dL 70-100 Meter ID: [id number]: 5930 AWA TRIPATHI GLUCOMETER GLUCOSE- LAB USE [id number] 07:43:00 Test Item Value Reference Range Comments GLUCOMETER (test code=GMG) 98 mg/dL 70-100 Meter ID: [id number]: 5930 AWA TRIPATHI BASIC METABOLIC [id number] 06:34:00 Test Item Value Reference Range Comments [...] (test code=RBCMOR) NORMAL GLUCOMETER GLUCOSE- LAB USE [id number] 20:19:00 Test Item Value Reference Range Comments GLUCOMETER (test code=GMG) 157 mg/dL 70-100 CLEANED METERMeter ID: [id number]: 0484 FERKB GOODEA GLUCOMETER GLUCOSE- LAB USE [id number] 16:18:00 Test Item Value Reference Range Comments GLUCOMETER (test code=GMG) 101 mg/dL 70-100 CLEANED METERMeter ID: [id number]: 9511 STEPHAN JOHNSONMAN GLUCOMETER GLUCOSE- LAB USE [id number] 11:51:00 Test Item Value Reference Range Comments GLUCOMETER (test code=GMG) 120 mg/dL 70-100 CLEANED METERMeter ID: [id number]: 9511 STEPHAN MERCEDES CORTISOL [id number] 09:02:00 Test Item Value Reference Range Comments CORTISOL (test code=A10) 4.20 ug/dL 3.44-22.54 GLUCOMETER GLUCOSE- LAB USE [id number] 07:47:00 Test Item Value Reference Range Comments GLUCOMETER (test code=GMG) 86 mg/dL 70-100 CLEANED METERMeter ID: [id number]: 9511 STEPHAN MERCEDES CARDIAC [id number] 06:02:00 Test Item Value Reference Range Comments TROPONIN I (test code=A84) <0.015 ng/mL 0.000-0.045 CKMB (test code=A49) <1.0 ng/mL <=3.6 CPK (test code=32A) 84 IU/L 26-192 [id number] 06:01:00 Test Item Value Reference Range Comments Hb A1C % (test code=HBA) 5.3 % 4.2-6.3 LIPID [id number] 05:57:00 Test Item Value Reference Range Comments CHOLESTROL (test code=44A) 203 mg/dL 140-200 TRIGLYCERI (test code=42B) 116 mg/dL <=149 HDL (test code=83D) 43.0 mg/dL 40.0-60.0 LDL (test code=34B) 143 mg/dL <=99 CHL/HDL (test code=CHR) 4.7 0.0-3.4 BASIC METABOLIC [id number] 05:50:00 Test Item Value Reference Range Comments [...] (test code=RBCMOR) NORMAL GLUCOMETER GLUCOSE- LAB USE [id number] 20:54:00 Test Item Value Reference Range Comments GLUCOMETER (test code=GMG) 132 mg/dL 70-100 Meter ID: [id number]: 5304 NIVIA CHAPARRO GLUCOMETER GLUCOSE- LAB USE [id number] 16:18:00 Test Item Value Reference Range Comments GLUCOMETER (test code=GMG) 112 mg/dL 70-100 Meter ID: [id number]: 5942 MORENO BEXLEY GLUCOMETER GLUCOSE- LAB USE [id number] 12:21:00 Test Item Value Reference Range Comments GLUCOMETER (test code=GMG) 106 mg/dL 70-100 Meter ID: [id number]: 5942 MORENO BEXLEY T4 [id number] 11:50:00 Test Item Value Reference Range Comments T4 FREE (test code=A91) 0.81 ng/dL 0.76-1.46 THYROID PANEL/SCREEN (TSH)2018-03-17 11:38:00 Test Item Value Reference Range Comments TSH (test code=A57) 5.300 uIU/mL 0.358-3.740 BASIC METABOLIC [id number] 06:17:00 Test Item Value Reference Range Comments [...] 12-20 CALCIUM (test code=09D) 8.0 mg/dL 8.3-9.5 [id number] 06:15:00 Test Item Value Reference Range Comments [...] (test code=RBCMOR) NORMAL XR CHEST 1 VIEW [id number] 00:37:30Examination: Chest one viewLocation code: K4Ltijffnscg: Chest 12/06/17Discussion:Clinical history is remarkable for Central venous catheter insertion. Rightinternal jugular central venous catheter is in good position terminating in thesuperior vena cava. Heart is enlarged. Mild central congestion is noted.Impression:Mild congestion.LACTIC [id number] 00:16:00 Test Item Value Reference Range Comments LACTIC ACD (test code=LA) 0.5 mmol/L 0.4-2.0 [id number] 22:51:00 Test Item Value Reference Range Comments [...] code=LEUK) NEGATIVE NEGATIVE XR CHEST 1 VIEW [id number] 21:54:29Examination: Chest one viewLocation code: R4Prekkylxvv: Chest 12/06/17Discussion:Clinical history is remarkable for fall. Cardiac silhouette is normal in size.Mild congestion is present, no consolidation, effusion, or pneumothorax ispresent.Impression:Mild congestion.CARDIAC [id number] 21:12:00 Test Item Value Reference Range Comments TROPONIN I (test code=A84) <0.015 ng/mL 0.000-0.045 CKMB (test code=A49) 2.1 ng/mL <=3.6 CPK (test code=32A) 142 IU/L 26-192 BASIC METABOLIC [id number] 21:11:00 Test Item Value Reference Range Comments [...] code=09D) 8.8 mg/dL 8.3-9.5 PRO TIME AND [id number] 21:03:00 Test Item Value Reference Range Comments [...] code=MDIFF) NO NO CT LUMBAR SPINE W/O [id number] 20:15:23CT LUMBAR SPINE W/O CONTRASTLocation: A1Ccmda hours services provided03/16/2018 8:13 PMIndication: W19.XXXS: UNSPECIFIED [...] no acute bonyabnormality noted.CT CERVICAL SPINE W/O [id number] 20: 13:19CT CERVICAL SPINE W/O CONTRASTLocation: F0Haazw hours services provided03/16 8:11 PMIndication: W19.XXXS: UNSPECIFIED [...] no evidence of acute bonyabnormality.CT FACIAL W/O [id number] 20:11:27Examination: Facial CT without contrastLocation code : H1Mzicunevtv: NoneTechnique:Thin section axialcontiguous images were obtained through [...] of the face is present.CT HEAD W/O [id number] 20:11:01CT HEAD W/O CONTRASTLocation: H7Tnidk hours services provided 03/16/2018 8:10 PMIndication: W19.XXXS:UNSPECIFIED [...] of arrival at the facility.XR SPINE LUMBAR [id number] -[id number] 09:16:30Lumbar spine, 5 viewsLocation Code: T9DNLQZOOB HISTORY: SprainCOMPARISON: None.COMMENTS: AP, oblique, and lateral views of the lumbar spine demonstrate noacute fracture or malalignment. There is moderate multilevel disc spacenarrowing with endplate sclerosis and osteophyte formation. The soft tissuesare unremarkable. Surgical clips overlie the right upper quadrant.IMPRESSION: Moderate multilevel lumbar spondylosis with otherwise no acuteabnormality.[id number] 09:05:00 Test Item Value Reference Range Comments [...] purposes ALCOHOL (test code=56A) <10 mg/dL <=10 [id number] 20:20:00 Test Item Value Reference Range Comments ACETAMINPH (test code=94M) <2.0 ug/mL 10.0-30.0 DRUGS OF [id number] 20:19:00 Test Item Value Reference Range Comments [...] 200 ng/mL Opiates 2000 ng/mL COMPREHENSIVE METABOLIC [id number] 20:19:00 Test Item Value Reference Range Comments [...] (test code=31A) 27 IU/L <=78 URINALYSIS WITH [id number] 20:15:00 Test Item Value Reference Range Comments [...] SPERM UR (test code=USPERM) /HPF NONE CARDIAC [id number] 20:14:00 Test Item Value Reference Range Comments TROPONIN I (test code=A84) <0.015 ng/mL 0.000-0.045 CKMB (test code=A49) <1.0 ng/mL <=3.6 CPK (test code=32A) 118 IU/L 26-192 AMMONIA [id number] 20:06:00 Test Item Value Reference Range Comments AMMONIA (test code=54A) 22 umol/L 11-32 [id number] 20:06:00 Test Item Value Reference Range Comments SALICYLATE (test code=94B) <1.7 mg/dL 2.8-20.0 SERUM [id number] 20:03:00 Test Item Value Reference Range Comments [...] code=MDIFF) NO NO XR CHEST 1 VIEW [id number] 18:44:59LOCATION: C63CINUTYK: 52-year-old female with nonspecified chest pain.COMMENT: A frontal chest radiograph was obtained at the bedside at 6:41 p.m., andcompared to a prior study of 10/22/162017.The lungs are clear and well-aerated. The cardiac silhouette, julianne, andmediastinum are within normal limits. The skeleton is intact, and thesurrounding soft tissues are unremarkable. IMPRESSION:Unremarkable portable examination of the chest.CT HEAD W/O [id number] 18:39: 38LOCATION: O13LVFPMFI: 52-year-old female who presents with a headache.COMMENT : Axial imaging of the patient's brain was obtained without IV contrast. Softtissue and bone window images were provided. Coronal and sagittalreconstructions were included.An older examination of 07/28/17 is available forcomparison.The current study was obtained within 24 hours of the patient's arrival to [facility].One or more of the following dose reduction [...] unremarkable.IMPRESSION: Unremarkable noncontrast head CT examination.URINALYSIS WITH [id number] 22:27:00 Test Item Value Reference Range Comments [...] UR (test code=USPERM) /HPF NONE DRUGS OF [id number] 22:22:00 Test Item Value Reference Range Comments [...] Barbiturates 200 ng/mL Opiates 2000 ng/mL CARDIAC [id number] 21:29:00 Test Item Value Reference Range Comments TROPONIN I (test code=A84) <0.015 ng/mL 0.000-0.045 CKMB (test code=A49) <1.0 ng/mL <=3.6 CPK (test code=32A) 95 IU/L 26-192 COMPREHENSIVE METABOLIC [id number] 21:23:00 Test Item Value Reference Range Comments [...] (test code=RBCMOR) NORMAL XR CHEST 1 VIEW [id number] 20:25:30EXAM: XR CHEST 1 VIEW PORTABLEHISTORY : [id number]: Seizure TECHNIQUE: Frontal view of the chest.COMPARISON: 2017FINDINGS:The lungs are well inflated and clear. No evidence of pneumothorax or pleuraleffusion. The heart is normal in size. The mediastinal contours are unremarkable. Osseous structures are intact. Linear radiopacities overlying the right lungapex are compatible with artifact. IMPRESSION:No evidence of acute cardiopulmonary disease.XR HUMERUS LEFT AP & [id number] 18:02: 15Exam: X-ray left humerus 2 viewsHISTORY: Pain after fall.Location: D6WYBJHOUM: No fracture or dislocation is noted. No osseous lesions seen.IMPRESSION:1. Unremarkable exam.XR CHEST 2 [id number] 18:01:20Exam: Chest x-ray 2 viewsHISTORY: FallLocation: M3OEOFIIJJ:The heart size is normal and lung pizarro are clear. Osseous structures areintact.IMPRESSION:1. Normal chest. No change since 08/14/17XR SPINE CERVICAL [id number] 18:00:27Cervical spine, 5 viewsLocation code: Y9Vjquwyuh history: Neck pain after fallComments: AP, oblique,open [...] 10:53:18PA and lateral chest, 2 views.Location code: D8ABTLECQG HISTORY: Preoperative respiratory assessmentCOMPARISON: NoneCOMMENTS: The lungs are clear and well inflated. The costophrenic angles aresharp. The cardiomediastinal silhouette is unremarkable. The bones are intact.IMPRESSION: No acute abnormalityXR CHEST 1 VIEW [id number] 14:54:26EXAM: Portable chest one view.Location code:R 16HISTORY: [...] 108.0 ug/mL 50.0-100.0 CT CERVICAL SPINE W/O [id number] 14:52:28CT cervical spine without contrastLocation Code: X1Azwvsykc history: seizure disorderCOMPARISON: None.COMMENTS: Helical CT of the cervical spine was performed and submitted as thinsection axial, coronal, and sagittally oriented images.There is no acute fracture or malalignment of the cervical spine. The softtissues are unremarkable. Degenerative disease is noted most pronounced atC5-C6 with grade 1 retrolisthesis of C5 on C6.IMPRESSION: No acute abnormality.CT HEAD W/O [id number] 14:50:47EXAM: CT Head without contrastLocation code:R 16HISTORY: [...] normal limits. IMPRESSION:No acute intracranial abnormality.COMPREHENSIVE METABOLIC [id number] 14:46:00 Test Item Value Reference Range Comments [...] RBC MORPH (test code=RBCMOR) NORMAL URINALYSIS WITH [id number] 14:30:00 Test Item Value Reference Range Comments [...] (test code=USPERM) /HPF NONE CT HEAD W/O [id number] 22:01:18AFTER HOURS SERVICE ON: 06/01/2017 9:59 PMCT Scan of the Brain Without ContrastLocation Code B99Yixoefb: Headache, closed head injury, seizure, fallTechnique: Scans were performed on a helical scannerpre IV contrast only. Thestudy is limited secondary to lack of intravenous contrast, particularly forevaluation of masses. CT images were performed within 24 hours at arrival [facility]. One or more of the following dose [...] (test code=98A) <0.5 ug/mL 4.0-12.0 DILANTIN (PHENYTOIN) [id number] 21:55:00 Test Item Value Reference Range Comments PHENYTOIN (test code=68C) <0.4 ug/mL 10.0-20.0 VALPROIC ACID (DEPAKENE)2017-06-01 21:54:00 Test Item Value Reference Range Comments VALP ACID (test code=95A) <3.0 ug/mL 50.0-100.0 COMPREHENSIVE METABOLIC [id number] 21:50:00 Test Item Value Reference Range Comments [...] (test code=31A) 17 IU/L <=78 URINALYSIS WITH [id number] 21:38:00 Test Item Value Reference Range Comments [...] UR (test code=USPERM) /HPF NONE DRUGS OF [id number] 21:38:00 Test Item Value Reference Range Comments [...] ng/mL Barbiturates 200 ng/mL Opiates 2000 ng/mL [id number] 21:30:00 Test Item Value Reference Range Comments [...] NORMAL NM LUNG (V/Q ) SCAN W [id number] 18:43:38HISTORY: Shortness of breath, elevated d-dimerLocation: S2Hmubbkfowa to chest x-ray 10 October 2016TECHNIQUE: 9 [...] .2. Mild COPDU/S VENOUS DOPPLER TEETEE LOW [id number] 17:15:51HISTORY: leg swellingLocation : Y1GIEHBGM: Real time chaudhary scale, color flow and Doppler spectral imagingof the bilateral lower extremity was performed revealing patent deep venoussystem with no evidence of deep venous thrombosis of obstruction. There isnormal augmentation of flow with compression of calf veins. No fluidcollections.IMPRESSION:1. No evidence of deep venous thrombosis bilaterally.[id number] 17:09:00 Test Item Value Reference Range Comments D-DIMER (test code=DDI) 299 ng/mL D-DU 0-234 D-DIMER COMMENT (test *Level to rule out DVT or PE: code=DDCOM) <235 ng/mL D-DU* GLUCOMETER GLUCOSE- LAB USE [id number] 16:04:00 Test Item Value Reference Range Comments GLUCOMETER (test code=GMG) 95 mg/dL 70-100 CLEANED METERMeter ID: [id number]: [address] GLUCOMETER GLUCOSE- LAB USE [id number] 12:15:00 Test Item Value Reference Range Comments GLUCOMETER (test code=GMG) 89 mg/dL 70-100 CLEANED METERMeter ID: [id number]: [address] GLUCOMETER GLUCOSE- LAB USE [id number] 06:10:00 Test Item Value Reference Range Comments GLUCOMETER (test code=GMG) 105 mg/dL 70-100 CLEANED METERMeter ID: [id number]: [address]LE[address] ALUREANO CARDIAC [id number] 05:18:00 Test Item Value Reference Range Comments TROPONIN I (test code=A84) <0.015 ng/mL 0.000-0.045 CKMB (test code=A49) <1.0 ng/mL <=3.6 CPK (test code=32A) 49 IU/L 26-192 BASIC METABOLIC [id number] 05:15:00 Test Item Value Reference Range Comments [...] (test code=RBCMOR) NORMAL GLUCOMETER GLUCOSE- LAB USE [id number] 20:07:00 Test Item Value Reference Range Comments GLUCOMETER (test code=GMG) 104 mg/dL 70-100 Meter ID: [id number]: [address] BRAIN NATRIURETIC [id number] 18:01:00 Test Item Value Reference Range Comments proBNP (test code=PBNP) 92 pg/mL 0-125 COMPREHENSIVE METABOLIC [id number] 17:59:00 Test Item Value Reference Range Comments [...] ALT (test code=31A) 20 IU/L <=78 CARDIAC [id number] 17:59:00 Test Item Value Reference Range Comments TROPONIN I (test code=A84) <0.015 ng/mL 0.000-0.045 CKMB (test code=A49) <1.0 ng/mL <=3.6 CPK (test code=32A) 56 IU/L 26-192 XR CHEST 1 VIEW [id number] 17:54:17HISTORY: chest painLocation code: T1MYVRDQNT: Frontal view of the chest demonstrates normal cardiomediastinalsilhouette. The trachea is midline. The lungs are clear. There is no effusionor pneumothorax. The bones are intact.IMPRESSION: No acute pulmonary process.PRO TIME AND [id number] 17:54:00 Test Item Value Reference Range Comments [...] or LMW Heparin. Order Code is ANTI-XA [id number]-[id number] 17:53:00 Test Item Value Reference Range Comments [...]
[2019-10-01] MEDS ORDERED: HYDROCODONE/APAP 7.5/325 MG TAB ONE (21:45)
--- NOTE | 2019-10-01 22:11 | ER ---
Nurse's Notes [facility] Name: Zahida Bowman Age: 54 yrs Sex: Female : 1965 Arrival Date: 10/01/2019 Time: 20:36 Bed 18 Private MD: Diagnosis: Pain and swelling right leg. S/P DVT right leg Presentation: 10/01 20:46 Chief complaint: Patient states: reports having a diagnosed DVT from August to the RLE, is taking Xarelto and Hydroconde but is out of [place] as of today, reports swelling has increased and is causing concern. Coronavirus screen: The patient has NOT traveled to [place] in the past 14 days. The patient has NOT had contact with known and/or suspected case of Coronavirus. Ebola Screen: Patient negative for fever greater than or equal to 101.5 degrees Fahrenheit, and additional compatible Ebola Virus Disease symptoms Patient denies exposure to infectious person. Patient denies travel to an Ebola-affected area in the 21 days before illness onset. No symptoms or risks identified at this time. Initial Sepsis Screen: Does the patient meet any 2 criteria? No. Patient's initial sepsis screen is negative. Does the patient have a suspected source of infection? No. Patient's initial sepsis screen is negative. Risk Assessment: Do you want to hurt yourself or someone else? Patient reports no desire to harm self or others. 20:46 Method Of Arrival: Wheelchair sg 20:46 Acuity: GA 3 sg 21:00 Onset of symptoms was October 01, 2019 at 20:00. wh Historical: - Allergies: 20:46 Demerol; sg 20:46 Dilaudid; sg 20:46 Iodine; sg 20:46 IV contrast; sg 20:46 pcn; sg 20:46 Tessalon Perles; sg - Home Meds: 20:46 Depakote 500 mg Oral TbEC once daily [Active]; metformin 500 mg Oral Tb24 1 tab once sg daily [Active]; Prozac 40 mg Oral cap 1 cap once daily [Active]; Xarelto oral oral [Active]; Bourbon Oral [Active]; - PMHx: 20:46 COPD; Diabetes - NIDDM; Seizures; sg - Immunization history:: Adult Immunizations up to date. - Social history:: Smoking status: Patient denies any tobacco usage or history of. Screenin:00 Abuse screen: Denies threats or abuse. Denies injuries from another. Nutritional wh screening: No deficits noted. Tuberculosis screening: No symptoms or risk factors identified. Fall Risk None identified. Assessment: 21:00 General: Appears in no apparent distress. Behavior is calm, cooperative, appropriate wh for age. Pain: Complains of pain in right leg Pain does not radiate. Pain currently is 7 out of 10 on a pain scale. Quality of pain is described as throbbing. Neuro: Level of Consciousness is awake, alert, obeys commands, Oriented to person, place, time, situation, Appropriate for age. Cardiovascular: Heart tones S1 S2. Respiratory: Airway is patent Respiratory effort is even, unlabored, Respiratory pattern is regular, symmetrical, Breath sounds are clear bilaterally. GI: Abdomen is flat, non-distended. : No signs and/or symptoms were reported regarding the genitourinary system. EENT: No signs and/or symptoms were reported regarding the EENT system. Derm: Skin is intact, is healthy with good turgor, Skin is pink, warm \T\ dry. normal. Musculoskeletal: Circulation, motion, and sensation intact. 22:10 Reassessment: Patient appears in no apparent distress at this time. No changes from previously documented assessment. Patient and/or family updated on plan of care and expected duration. Pain level reassessed. Patient is alert, oriented x 3, equal unlabored respirations, skin warm/dry/pink. Vital Signs: 20:46 BP 142 / 70; Pulse 87; Resp 20; Pulse Ox 98% on R/A; sg 22:00 BP 138 / 81; Pulse 84; Resp 18; Pulse Ox 99% on R/A; ED Course: 20:36 Patient arrived in ED. ag3 20:41 Luis E Kenyon is Primary Nurse. wh 20:45 Arm band placed on. sg 20:48 Triage completed. sg 21:00 Patient has correct armband on for positive identification. Bed in low position. Call light in reach. Side rails up X 1. Pulse ox on. NIBP on. 21:31 Robi Treviño MD is Attending Physician. pkl 22:07 Extremity Venous Uni Ltd US In Process Unspecified. EDMS 22:29 No provider procedures requiring assistance completed. Patient did not have IV access during this emergency room visit. Administered Medications: 21:50 Drug: Bourbon (7.5 mg-325 mg) 1 tabs Route: PO; 22:31 Follow up: Response: No adverse reaction; Pain is decreased; RASS: Alert and Calm (0) Outcome: 22:11 Discharge ordered by . ayesha 22:29 Discharged to home via wheelchair, with family. 22:29 Condition: stable 22:29 Discharge instructions given to patient, family, Instructed on discharge instructions, follow up and referral plans. no drinking with medication, no driving heavy equipment, medication usage, POC Demonstrated understanding of instructions, follow-up care, medications, POC Prescriptions given X 1. 22:32 Patient left the ED. Signatures: Dispatcher [employer] EDMS Jc Nance RN RN Robi Bonilla MD MD pkl Habalo, Luis E Melisa Mai3
--- NOTE | 2019-10-01 22:12 | EDPHYS ---
Physician Documentation [facility] Name: Zahida Bowman Age: 54 yrs Sex: Female : 1965 Arrival Date: 10/01/2019 Time: 20:36 Bed 18 Private MD: ED Physician Robi Treviño HPI: 10/01 21:39 This 54 yrs old Female presents to ER via Wheelchair with complaints of Leg pkl Pain. 21:39 The patient presents with pain, swelling. The complaints affect the right leg. Onset: pkl The symptoms/episode began/occurred today. Patient diagnosed with DVT right leg in 2019. Currently taking Xarelto. Now complaining increased swelling and pain in her right leg today. Historical: - Allergies: 20:46 Demerol; sg 20:46 Dilaudid; sg 20:46 Iodine; sg 20:46 IV contrast; sg 20:46 pcn; sg 20:46 Tessalon Perles; sg - Home Meds: 20:46 Depakote 500 mg Oral TbEC once daily [Active]; metformin 500 mg Oral Tb24 1 tab once sg daily [Active]; Prozac 40 mg Oral cap 1 cap once daily [Active]; Xarelto oral oral [Active]; Burbank Oral [Active]; - PMHx: 20:46 COPD; Diabetes - NIDDM; Seizures; sg - Immunization history:: Adult Immunizations up to date. - Social history:: Smoking status: Patient denies any tobacco usage or history of. ROS: 21:39 Eyes: Negative for injury, pain, redness, and discharge, ENT: Negative for injury, pkl pain, and discharge, Neck: Negative for injury, pain, and swelling, Cardiovascular: Negative for chest pain, palpitations, and edema, Respiratory: Negative for shortness of breath, cough, wheezing, and pleuritic chest pain, Abdomen/GI: Negative for abdominal pain, nausea, vomiting, diarrhea, and constipation, Back: Negative for injury and pain, : Negative for injury, bleeding, discharge, and swelling. 21:39 MS/extremity: Positive for pain, swelling, of the right leg. 21:39 Skin: Negative for rash. 21:39 Neuro: Negative for altered mental status. Exam: 21:39 Head/Face: Normocephalic, atraumatic. Eyes: Pupils equal round and reactive to light, pkl extra-ocular motions intact. Lids and lashes normal. Conjunctiva and sclera are non-icteric and not injected. Cornea within normal limits. Periorbital areas with no swelling, redness, or edema. ENT: Nares patent. No nasal discharge, no septal abnormalities noted. Tympanic membranes are normal and external auditory canals are clear. Oropharynx with no redness, swelling, or masses, exudates, or evidence of obstruction, uvula midline. Mucous membranes moist. Neck: Trachea midline, no thyromegaly or masses palpated, and no cervical lymphadenopathy. Supple, full range of motion without nuchal rigidity, or vertebral point tenderness. No Meningismus. Chest/axilla: Normal chest wall appearance and motion. Nontender with no deformity. No lesions are appreciated. Cardiovascular: Regular rate and rhythm with a normal S1 and S2. No gallops, murmurs, or rubs. Normal PMI, no JVD. No pulse deficits. Respiratory: Lungs have equal breath sounds bilaterally, clear to auscultation and percussion. No rales, rhonchi or wheezes noted. No increased work of breathing, no retractions or nasal flaring. Abdomen/GI: Soft, non-tender, with normal bowel sounds. No distension or tympany. No guarding or rebound. No evidence of tenderness throughout. Back: No spinal tenderness. No costovertebral tenderness. Full range of motion. Skin: Warm, dry with normal turgor. Normal color with no rashes, no lesions, and no evidence of cellulitis. Neuro: Awake and alert, GCS 15, oriented to person, place, time, and situation. Cranial nerves II-XII grossly intact. Motor strength 5/5 in all extremities. Sensory grossly intact. Cerebellar exam normal. Normal gait. 21:39 Musculoskeletal/extremity: Extremities: grossly normal except: noted in the right leg: pain, swelling. Vital Signs: 20:46 BP 142 / 70; Pulse 87; Resp 20; Pulse Ox 98% on R/A; sg 22:00 BP 138 / 81; Pulse 84; Resp 18; Pulse Ox 99% on R/A; MDM: 21:31 Patient medically screened. pk 22:05 Data reviewed: vital signs, nurses notes, radiologic studies, ultrasound. pk 22:05 Data reviewed: radiologic studies. pkl 22:05 ED course: Discussed US result with patient . Advised to follow up with her PCP ayesha tomorrow . To elevate right leg as much as possible. 10/01 21:27 Order name: Extremity Venous Uni Ltd [facility] Administered Medications: 21:50 Drug: Burbank (7.5 mg-325 mg) 1 tabs Route: PO; 22:31 Follow up: Response: No adverse reaction; Pain is decreased; RASS: Alert and Calm (0) Disposition: 10/01/19 22:11 Discharged to Home. Impression: Pain and swelling right leg. S/P DVT right leg. - Condition is Stable. - Prescriptions for Tylenol- Codeine #3 300-30 mg Oral Tablet - take 1 tablet by ORAL route every 8 hours As needed; 6 tablet. - Medication Reconciliation Form, Thank You Letter, Antibiotic Education, Prescription Opioid Use form. - Follow up: Private Physician; When: Tomorrow; Reason: Re-evaluation by your physician. - Problem is new. - Symptoms have improved. Signatures: Dispatcher [employer] EDMS Jc Nance RN RN sg Lam, Pin, MD MD pkl Habalo, Winsy Corrections: (The following items were deleted from the chart) 22:32 22:11 10/01/2019 22:11 Discharged to Home. Impression: Pain and swelling right leg. S/P wh DVT right leg. Condition is Stable. Forms are Medication Reconciliation Form, Thank You Letter, Antibiotic Education, Prescription Opioid Use. Follow up: Private Physician; When: Tomorrow; Reason: Re-evaluation by your physician. Problem is new. Symptoms have improved. pkl
[2019-10-01 23:00] VITALS: BP 138/81; O2SAT 99
--- NOTE | 2019-10-02 07:09 | RAD REPORT ---
EXAM DESCRIPTION: US - Extremity Venous Uni Ltd - 10/01/2019 10:06 pm CLINICAL HISTORY: PAIN, swelling COMPARISON: None. TECHNIQUE: Real-time sonographic evaluation of the right lower extremity deep venous systems was per formed. FINDINGS: Normal compressibility, flow augmentation, phasic flow and spontaneous flow are identified in the right lower extremity common femoral, superficial femoral, popliteal and posterior tibial vei ns. No intraluminal filling defects seen. IMPRESSION: No DVT in the right lower extremity.
== END 2019-10-01 22:32 | disposition home or self-care (01) ==
LOC: ER 20:34
DX: M79.604 Pain in right leg (principal); Z86.718 Personal history of other venous thrombosis and embolism; Z79.01 Long term (current) use of anticoagulants; E11.9 Type 2 diabetes mellitus without complications; J44.9 Chronic obstructive pulmonary disease, unspecified; G40.909 Epilepsy, unspecified, not intractable, without status epilepticus; Z88.0 Allergy status to penicillin; Z88.5 Allergy status to narcotic agent; Z88.8 Allergy status to other drugs, medicaments and biological substances; Z91.041 Radiographic dye allergy status; Z91.048 Other nonmedicinal substance allergy status
CPT/HCPCS: 93971; 99284

== ENCOUNTER 2019-10-20 04:17 | Observation (INO) | payer OTHER ==
--- OUTSIDE RECORDS SUMMARY | 2019-10-20 04:26 | XMS REPORT ---
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 [place] [address]QDLAKEILEEN HAIDER MD,PHD,ANN RENIN [id number] 10:17:00 Test Item Value Reference Range Comments PLASMA RENIN 0.35 ng/mL/h 0.25-5.82 This test was developed and its ACTIVITY,LC/MS/MS analytical performancecharacteristics (test have been determined by [facility] osez=[id number]) [facility]. It has not beencleared or approved by FDA. This assay has been validatedpursuant to the CLIA regulations and is used for clinicalpurposes.TEST PERFORMED AT:[employer] [id number] [facility] [place] [address]RXARMEILEEN HAIDER MD,PHD,ANN [id number] 09:39:00 Test Item Value Reference Range Comments ACTH, PLASMA (test 72 pg/mL 6-50 Reference range applies only to the mlgx=[id number]) specimens collectedbetween 7am-10am.TEST PERFORMED AT:[employer] [id number] [facility]ITALGEOFFRE[facility] [place] [address]AUIJFEILEEN HAIDER MD,PHD,ANN BLOOD [id number] 07:35:00 Test Item Value Reference Range Comments Culture Observations (test code=COB1) NO GROWTH AFTER 5 DAYS BLOOD [id number] 07:35:00 Test Item Value Reference Range Comments Culture Observations (test code=COB1) NO GROWTH AFTER 5 DAYS GLUCOMETER GLUCOSE- LAB USE [id number] 10:26:00 Test Item Value Reference Range Comments GLUCOMETER (test code=GMG) 118 mg/dL 70-100 Meter ID: [id number]: 9208 KANWAL DEMPSEY GLUCOMETER GLUCOSE- LAB USE [id number] 05:18:00 Test Item Value Reference Range Comments GLUCOMETER (test code=GMG) 142 mg/dL 70-100 CLEANED METERMeter ID: [id number]: 5169 CINDY MG BASIC METABOLIC [id number] 04:20:00 Test Item Value Reference Range Comments [...] (test code=RBCMOR) NORMAL GLUCOMETER GLUCOSE- LAB USE [id number] 20:41:00 Test Item Value Reference Range Comments GLUCOMETER (test code=GMG) 125 mg/dL 70-100 Meter ID: [id number]: 5015 SASCHASHANI DOWELLOLOLA GLUCOMETER GLUCOSE- LAB USE [id number] 15:36:00 Test Item Value Reference Range Comments GLUCOMETER (test code=GMG) 107 mg/dL 70-100 Meter ID: [id number]: 5930 AWA TRIPATHI CORTISOL [id number] 12:16:00 Test Item Value Reference Range Comments CORTISOL (test code=A10) 23.30 ug/dL 3.44-22.54 CORTISOL [id number] 11:48:00 Test Item Value Reference Range Comments CORTISOL (test code=A10) 17.20 ug/dL 3.44-22.54 CORTISOL [id number] 11:42:00 Test Item Value Reference Range Comments CORTISOL (test code=A10) 13.70 ug/dL 3.44-22.54 GLUCOMETER GLUCOSE- LAB USE [id number] 11:12:00 Test Item Value Reference Range Comments GLUCOMETER (test code=GMG) 122 mg/dL 70-100 Meter ID: [id number]: 5930 AWA TRIPATHI GLUCOMETER GLUCOSE- LAB USE [id number] 07:43:00 Test Item Value Reference Range Comments GLUCOMETER (test code=GMG) 98 mg/dL 70-100 Meter ID: [id number]: 5930 AWA TRIPATHI BASIC METABOLIC [id number] 06:34:00 Test Item Value Reference Range Comments [...] (test code=RBCMOR) NORMAL GLUCOMETER GLUCOSE- LAB USE [id number] 20:19:00 Test Item Value Reference Range Comments GLUCOMETER (test code=GMG) 157 mg/dL 70-100 CLEANED METERMeter ID: [id number]: 0484 FERKB GOODEA GLUCOMETER GLUCOSE- LAB USE [id number] 16:18:00 Test Item Value Reference Range Comments GLUCOMETER (test code=GMG) 101 mg/dL 70-100 CLEANED METERMeter ID: [id number]: 9511 STEPHAN JOHNSONMAN GLUCOMETER GLUCOSE- LAB USE [id number] 11:51:00 Test Item Value Reference Range Comments GLUCOMETER (test code=GMG) 120 mg/dL 70-100 CLEANED METERMeter ID: [id number]: 9511 STEPHAN MERCEDES CORTISOL [id number] 09:02:00 Test Item Value Reference Range Comments CORTISOL (test code=A10) 4.20 ug/dL 3.44-22.54 GLUCOMETER GLUCOSE- LAB USE [id number] 07:47:00 Test Item Value Reference Range Comments GLUCOMETER (test code=GMG) 86 mg/dL 70-100 CLEANED METERMeter ID: [id number]: 9511 STEPHAN MERCEDES CARDIAC [id number] 06:02:00 Test Item Value Reference Range Comments TROPONIN I (test code=A84) <0.015 ng/mL 0.000-0.045 CKMB (test code=A49) <1.0 ng/mL <=3.6 CPK (test code=32A) 84 IU/L 26-192 [id number] 06:01:00 Test Item Value Reference Range Comments Hb A1C % (test code=HBA) 5.3 % 4.2-6.3 LIPID [id number] 05:57:00 Test Item Value Reference Range Comments CHOLESTROL (test code=44A) 203 mg/dL 140-200 TRIGLYCERI (test code=42B) 116 mg/dL <=149 HDL (test code=83D) 43.0 mg/dL 40.0-60.0 LDL (test code=34B) 143 mg/dL <=99 CHL/HDL (test code=CHR) 4.7 0.0-3.4 BASIC METABOLIC [id number] 05:50:00 Test Item Value Reference Range Comments [...] (test code=RBCMOR) NORMAL GLUCOMETER GLUCOSE- LAB USE [id number] 20:54:00 Test Item Value Reference Range Comments GLUCOMETER (test code=GMG) 132 mg/dL 70-100 Meter ID: [id number]: 5304 NIVIA CHAPARRO GLUCOMETER GLUCOSE- LAB USE [id number] 16:18:00 Test Item Value Reference Range Comments GLUCOMETER (test code=GMG) 112 mg/dL 70-100 Meter ID: [id number]: 5942 MORENO BEXLEY GLUCOMETER GLUCOSE- LAB USE [id number] 12:21:00 Test Item Value Reference Range Comments GLUCOMETER (test code=GMG) 106 mg/dL 70-100 Meter ID: [id number]: 5942 MORENO BEXLEY T4 [id number] 11:50:00 Test Item Value Reference Range Comments T4 FREE (test code=A91) 0.81 ng/dL 0.76-1.46 THYROID PANEL/SCREEN (TSH)2018-03-17 11:38:00 Test Item Value Reference Range Comments TSH (test code=A57) 5.300 uIU/mL 0.358-3.740 BASIC METABOLIC [id number] 06:17:00 Test Item Value Reference Range Comments [...] 12-20 CALCIUM (test code=09D) 8.0 mg/dL 8.3-9.5 [id number] 06:15:00 Test Item Value Reference Range Comments [...] (test code=RBCMOR) NORMAL XR CHEST 1 VIEW [id number] 00:37:30Examination: Chest one viewLocation code: T0Xzbaupdxsw: Chest 12/06/17Discussion:Clinical history is remarkable for Central venous catheter insertion. Rightinternal jugular central venous catheter is in good position terminating in thesuperior vena cava. Heart is enlarged. Mild central congestion is noted.Impression:Mild congestion.LACTIC [id number] 00:16:00 Test Item Value Reference Range Comments LACTIC ACD (test code=LA) 0.5 mmol/L 0.4-2.0 [id number] 22:51:00 Test Item Value Reference Range Comments [...] code=LEUK) NEGATIVE NEGATIVE XR CHEST 1 VIEW [id number] 21:54:29Examination: Chest one viewLocation code: N6Onlsnwjqak: Chest 12/06/17Discussion:Clinical history is remarkable for fall. Cardiac silhouette is normal in size.Mild congestion is present, no consolidation, effusion, or pneumothorax ispresent.Impression:Mild congestion.CARDIAC [id number] 21:12:00 Test Item Value Reference Range Comments TROPONIN I (test code=A84) <0.015 ng/mL 0.000-0.045 CKMB (test code=A49) 2.1 ng/mL <=3.6 CPK (test code=32A) 142 IU/L 26-192 BASIC METABOLIC [id number] 21:11:00 Test Item Value Reference Range Comments [...] code=09D) 8.8 mg/dL 8.3-9.5 PRO TIME AND [id number] 21:03:00 Test Item Value Reference Range Comments [...] code=MDIFF) NO NO CT LUMBAR SPINE W/O [id number] 20:15:23CT LUMBAR SPINE W/O CONTRASTLocation: U8Zdmhp hours services provided03/16/2018 8:13 PMIndication: W19.XXXS: UNSPECIFIED [...] no acute bonyabnormality noted.CT CERVICAL SPINE W/O [id number] 20: 13:19CT CERVICAL SPINE W/O CONTRASTLocation: Z1Himjt hours services provided03/16 8:11 PMIndication: W19.XXXS: UNSPECIFIED [...] no evidence of acute bonyabnormality.CT FACIAL W/O [id number] 20:11:27Examination: Facial CT without contrastLocation code : M2Tfjkagglsx: NoneTechnique:Thin section axialcontiguous images were obtained through [...] of the face is present.CT HEAD W/O [id number] 20:11:01CT HEAD W/O CONTRASTLocation: A1Hxqiw hours services provided 03/16/2018 8:10 PMIndication: W19.XXXS:UNSPECIFIED [...] of arrival at the facility.XR SPINE LUMBAR [id number] -[id number] 09:16:30Lumbar spine, 5 viewsLocation Code: Z5CSXXZRMW HISTORY: SprainCOMPARISON: None.COMMENTS: AP, oblique, and lateral views of the lumbar spine demonstrate noacute fracture or malalignment. There is moderate multilevel disc spacenarrowing with endplate sclerosis and osteophyte formation. The soft tissuesare unremarkable. Surgical clips overlie the right upper quadrant.IMPRESSION: Moderate multilevel lumbar spondylosis with otherwise no acuteabnormality.[id number] 09:05:00 Test Item Value Reference Range Comments [...] purposes ALCOHOL (test code=56A) <10 mg/dL <=10 [id number] 20:20:00 Test Item Value Reference Range Comments ACETAMINPH (test code=94M) <2.0 ug/mL 10.0-30.0 DRUGS OF [id number] 20:19:00 Test Item Value Reference Range Comments [...] 200 ng/mL Opiates 2000 ng/mL COMPREHENSIVE METABOLIC [id number] 20:19:00 Test Item Value Reference Range Comments [...] (test code=31A) 27 IU/L <=78 URINALYSIS WITH [id number] 20:15:00 Test Item Value Reference Range Comments [...] SPERM UR (test code=USPERM) /HPF NONE CARDIAC [id number] 20:14:00 Test Item Value Reference Range Comments TROPONIN I (test code=A84) <0.015 ng/mL 0.000-0.045 CKMB (test code=A49) <1.0 ng/mL <=3.6 CPK (test code=32A) 118 IU/L 26-192 AMMONIA [id number] 20:06:00 Test Item Value Reference Range Comments AMMONIA (test code=54A) 22 umol/L 11-32 [id number] 20:06:00 Test Item Value Reference Range Comments SALICYLATE (test code=94B) <1.7 mg/dL 2.8-20.0 SERUM [id number] 20:03:00 Test Item Value Reference Range Comments [...] code=MDIFF) NO NO XR CHEST 1 VIEW [id number] 18:44:59LOCATION: L52FYGBRWQ: 52-year-old female with nonspecified chest pain.COMMENT: A frontal chest radiograph was obtained at the bedside at 6:41 p.m., andcompared to a prior study of 10/22/162017.The lungs are clear and well-aerated. The cardiac silhouette, julianne, andmediastinum are within normal limits. The skeleton is intact, and thesurrounding soft tissues are unremarkable. IMPRESSION:Unremarkable portable examination of the chest.CT HEAD W/O [id number] 18:39: 38LOCATION: U13BZQTHZW: 52-year-old female who presents with a headache.COMMENT : Axial imaging of the patient's brain was obtained without IV contrast. Softtissue and bone window images were provided. Coronal and sagittalreconstructions were included.An older examination of 07/28/17 is available forcomparison.The current study was obtained within 24 hours of the patient's [facility] to [facility].One or more of the following dose [...] unremarkable.IMPRESSION: Unremarkable noncontrast head CT examination.URINALYSIS WITH [id number] 22:27:00 Test Item Value Reference Range Comments [...] UR (test code=USPERM) /HPF NONE DRUGS OF [id number] 22:22:00 Test Item Value Reference Range Comments [...] Barbiturates 200 ng/mL Opiates 2000 ng/mL CARDIAC [id number] 21:29:00 Test Item Value Reference Range Comments TROPONIN I (test code=A84) <0.015 ng/mL 0.000-0.045 CKMB (test code=A49) <1.0 ng/mL <=3.6 CPK (test code=32A) 95 IU/L 26-192 COMPREHENSIVE METABOLIC [id number] 21:23:00 Test Item Value Reference Range Comments [...] (test code=RBCMOR) NORMAL XR CHEST 1 VIEW [id number] 20:25:30EXAM: XR CHEST 1 VIEW PORTABLEHISTORY : [id number]: Seizure TECHNIQUE: Frontal view of the chest.COMPARISON: 2017FINDINGS:The lungs are well inflated and clear. No evidence of pneumothorax or pleuraleffusion. The heart is normal in size. The mediastinal contours are unremarkable. Osseous structures are intact. Linear radiopacities overlying the right lungapex are compatible with artifact. IMPRESSION:No evidence of acute cardiopulmonary disease.XR HUMERUS LEFT AP & [id number] 18:02: 15Exam: X-ray left humerus 2 viewsHISTORY: Pain after fall.Location: Y7CTVXVOZT: No fracture or dislocation is noted. No osseous lesions seen.IMPRESSION:1. Unremarkable exam.XR CHEST 2 [id number] 18:01:20Exam: Chest x-ray 2 viewsHISTORY: FallLocation: L7NVLIHRNL:The heart size is normal and lung pizarro are clear. Osseous structures areintact.IMPRESSION:1. Normal chest. No change since 08/14/17XR SPINE CERVICAL [id number] 18:00:27Cervical spine, 5 viewsLocation code: U4Eaijftie history: Neck pain after fallComments: AP, oblique,open [...] 10:53:18PA and lateral chest, 2 views.Location code: B3ODNZDIIZ HISTORY: Preoperative respiratory assessmentCOMPARISON: NoneCOMMENTS: The lungs are clear and well inflated. The costophrenic angles aresharp. The cardiomediastinal silhouette is unremarkable. The bones are intact.IMPRESSION: No acute abnormalityXR CHEST 1 VIEW [id number] 14:54:26EXAM: Portable chest one view.Location code:R 16HISTORY: [...] 108.0 ug/mL 50.0-100.0 CT CERVICAL SPINE W/O [id number] 14:52:28CT cervical spine without contrastLocation Code: I0Vdeoqwoc history: seizure disorderCOMPARISON: None.COMMENTS: Helical CT of the cervical spine was performed and submitted as thinsection axial, coronal, and sagittally oriented images.There is no acute fracture or malalignment of the cervical spine. The softtissues are unremarkable. Degenerative disease is noted most pronounced atC5-C6 with grade 1 retrolisthesis of C5 on C6.IMPRESSION: No acute abnormality.CT HEAD W/O [id number] 14:50:47EXAM: CT Head without contrastLocation code:R 16HISTORY: [...] normal limits. IMPRESSION:No acute intracranial abnormality.COMPREHENSIVE METABOLIC [id number] 14:46:00 Test Item Value Reference Range Comments [...] RBC MORPH (test code=RBCMOR) NORMAL URINALYSIS WITH [id number] 14:30:00 Test Item Value Reference Range Comments [...] (test code=USPERM) /HPF NONE CT HEAD W/O [id number] 22:01:18AFTER HOURS SERVICE ON: 06/01/2017 9:59 PMCT Scan of the Brain Without ContrastLocation Code H35Pknfbca: Headache, closed head injury, seizure, fallTechnique: Scans were performed on a helical scannerpre IV contrast only. Thestudy is limited secondary to lack of intravenous contrast, particularly forevaluation of masses. CT images were performed within 24 hours at arrival [facility]. One or more of the following dose [...] (test code=98A) <0.5 ug/mL 4.0-12.0 DILANTIN (PHENYTOIN) [id number] 21:55:00 Test Item Value Reference Range Comments PHENYTOIN (test code=68C) <0.4 ug/mL 10.0-20.0 VALPROIC ACID (DEPAKENE)2017-06-01 21:54:00 Test Item Value Reference Range Comments VALP ACID (test code=95A) <3.0 ug/mL 50.0-100.0 COMPREHENSIVE METABOLIC [id number] 21:50:00 Test Item Value Reference Range Comments [...] (test code=31A) 17 IU/L <=78 URINALYSIS WITH [id number] 21:38:00 Test Item Value Reference Range Comments [...] UR (test code=USPERM) /HPF NONE DRUGS OF [id number] 21:38:00 Test Item Value Reference Range Comments [...] ng/mL Barbiturates 200 ng/mL Opiates 2000 ng/mL [id number] 21:30:00 Test Item Value Reference Range Comments [...] NORMAL NM LUNG (V/Q ) SCAN W [id number] 18:43:38HISTORY: Shortness of breath, elevated d-dimerLocation: I8Nlbmvfzywc to chest x-ray 10 October 2016TECHNIQUE: 9 [...] .2. Mild COPDU/S VENOUS DOPPLER TEETEE LOW [id number] 17:15:51HISTORY: leg swellingLocation : W1LWJBBEO: Real time chaudhary scale, color flow and Doppler spectral imagingof the bilateral lower extremity was performed revealing patent deep venoussystem with no evidence of deep venous thrombosis of obstruction. There isnormal augmentation of flow with compression of calf veins. No fluidcollections.IMPRESSION:1. No evidence of deep venous thrombosis bilaterally.[id number] 17:09:00 Test Item Value Reference Range Comments D-DIMER (test code=DDI) 299 ng/mL D-DU 0-234 D-DIMER COMMENT (test *Level to rule out DVT or PE: code=DDCOM) <235 ng/mL D-DU* GLUCOMETER GLUCOSE- LAB USE [id number] 16:04:00 Test Item Value Reference Range Comments GLUCOMETER (test code=GMG) 95 mg/dL 70-100 CLEANED METERMeter ID: [id number]: [address]U GLUCOMETER GLUCOSE- LAB USE [id number] 12:15:00 Test Item Value Reference Range Comments GLUCOMETER (test code=GMG) 89 mg/dL 70-100 CLEANED METERMeter ID: [id number]: [address] GLUCOMETER GLUCOSE- LAB USE [id number] 06:10:00 Test Item Value Reference Range Comments GLUCOMETER (test code=GMG) 105 mg/dL 70-100 CLEANED METERMeter ID: [id number]: 2417 ALEC LAUREANO CARDIAC [id number] 05:18:00 Test Item Value Reference Range Comments TROPONIN I (test code=A84) <0.015 ng/mL 0.000-0.045 CKMB (test code=A49) <1.0 ng/mL <=3.6 CPK (test code=32A) 49 IU/L 26-192 BASIC METABOLIC [id number] 05:15:00 Test Item Value Reference Range Comments [...] (test code=RBCMOR) NORMAL GLUCOMETER GLUCOSE- LAB USE [id number] 20:07:00 Test Item Value Reference Range Comments GLUCOMETER (test code=GMG) 104 mg/dL 70-100 Meter ID: [id number]: 4[address] ODIL[address] SESAY BRAIN NATRIURETIC [id number] 18:01:00 Test Item Value Reference Range Comments proBNP (test code=PBNP) 92 pg/mL 0-125 COMPREHENSIVE METABOLIC [id number] 17:59:00 Test Item Value Reference Range Comments [...] ALT (test code=31A) 20 IU/L <=78 CARDIAC [id number] 17:59:00 Test Item Value Reference Range Comments TROPONIN I (test code=A84) <0.015 ng/mL 0.000-0.045 CKMB (test code=A49) <1.0 ng/mL <=3.6 CPK (test code=32A) 56 IU/L 26-192 XR CHEST 1 VIEW [id number] 17:54:17HISTORY: chest painLocation code: U4EIYDBTPK: Frontal view of the chest demonstrates normal cardiomediastinalsilhouette. The trachea is midline. The lungs are clear. There is no effusionor pneumothorax. The bones are intact.IMPRESSION: No acute pulmonary process.PRO TIME AND [id number] 17:54:00 Test Item Value Reference Range Comments [...] or LMW Heparin. Order Code is ANTI-XA [id number] 17:53:00 Test Item Value Reference Range Comments [...]
[2019-10-20] MEDS ORDERED: ONDANSETRON 4 MG (ODT) TAB ONE (05:59)
[2019-10-20 06:04] LABS: Protime INR 1.39
[2019-10-20] MEDS ORDERED: MORPHINE 4 MG/ML SYR ONE (06:42)
[2019-10-20 06:46] LABS: Absolute Lymphocytes (CBC) 2.7 K/uL (0.7-4.9); Basophils % 0.8 % (0-1.3); Hematocrit 38.8 % (36.0-45.0); Lymphocytes % 33.5 % (15.3-44.8); MPV 7.7 fL (7.6-11.3); RBC Red Blood Cell Count 4.43 M/uL (3.86-4.86)
--- NOTE | 2019-10-20 06:55 | EKG ---
Test Date: 2019-10-20 Test Time: 04:27:17 Stock Or Delivery Clerk: ÁNGEL MEASUREMENT RESULTS: Intervals: Rate: 91 SD: 148 QRSD: 88 QT: 376 QTc: 462 [place]: P: 72 SD: 148 QRS: 90 T: -5 INTERPRETIVE STATEMENTS: Normal sinus rhythm Rightward axis ST & T wave abnormality, consider inferior ischemia Prolonged QT Abnormal ECG Compared to ECG 06/29/2018 19:58:59 ST (T wave) deviation now present Possible ischemia now present Prolonged QT interval now present Electronically Signed On 10-20-19 06:54:28 CDT by Kayden Branham
[2019-10-20 07:04] LABS: ALT/SGPT 34 U/L (12-78); AST/SGOT 29 U/L (15-37); Albumin 4.3 g/dL (3.4-5.0); Alkaline Phosphatase 113 U/L (45-117); BUN Blood Urea Nitrogen 10 mg/dL (7-18); Bicarbonate 25 mmol/L (21-32); Bilirubin Direct 0.1 mg/dL (0-0.2); Bilirubin Total 0.6 mg/dL (0.2-1.0); Glucose Level 115 mg/dL (74-106); Magnesium 2.1 mg/dL (1.8-2.4); NT PRO-BNP 146 pg/mL (<125); Potassium 3.4 mmol/L (3.5-5.1); Protein, Total 8.6 g/dL (6.4-8.2); Sodium Level 138 mmol/L (136-145); Troponin (Emerg Dept Use Only) < 0.02 ng/mL (0.0-0.045)
--- NOTE | 2019-10-20 07:23 | RAD REPORT ---
EXAM DESCRIPTION: RAD - Chest Single View - 10/20/2019 5:40 am CLINICAL HISTORY: CHEST PAIN COMPARISON: Portable June 2018 TECHNIQUE: AP portable chest image was obtained 10/20/2019 5:40 am . FINDINGS: No focal consolidations seen. Interstitial markings are prominent as a baseline for this p atient. Pattern is slightly increased. Vasculature is mildly increased as well. Heart size is stable. No measurable pleural effusion and no pneumothorax. No acute bony abnormality seen. No acute aortic findings suspected. IMPRESSION: No focal consolidation or mass. Slight increase in interstitial opacification is seen. The baseline pattern is prominent. Mild inters titial edema or infiltrate suspected.
--- NOTE | 2019-10-20 08:09 | ER ---
Nurse's Notes [facility] Name: Zahida Bowman Age: 54 yrs Sex: Female : 1965 Arrival Date: 10/20/2019 Time: 04:19 Bed 17 Private MD: Diagnosis: Chest pain, unspecified Presentation: 10/19 04:30 Chief complaint: Patient states: Has Hx of VT, C/O chest pain that started yesterday wh feels like pressure. Pt states associated symptoms of coughing and nausea. Coronavirus screen: The patient has NOT traveled to a country currently being monitored by the [facility] within the last 14 days. Ebola Screen: Patient negative for fever greater than or equal to 101.5 degrees Fahrenheit, and additional compatible Ebola Virus Disease symptoms Patient denies exposure to infectious person. Initial Sepsis Screen: Does the patient meet any 2 criteria? No. Patient's initial sepsis screen is negative. Does the patient have a suspected source of infection? No. Patient's initial sepsis screen is negative. Risk Assessment: Do you want to hurt yourself or someone else? Patient reports no desire to harm self or others. 04:30 Method Of Arrival: Ambulatory 04:30 Acuity: GA 3 04:40 Onset of symptoms was October 20, 2019. 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 - Social history:: Smoking status: Patient/guardian denies using. Screenin:12 Abuse screen: Denies threats or abuse. Denies injuries from another. Nutritional screening: No deficits noted. Tuberculosis screening: No symptoms or risk factors identified. Fall Risk None identified. Assessment: 04:45 General: Appears in no apparent distress. uncomfortable, Behavior is calm, cooperative, wh appropriate for age. Pain: Complains of pain in chest Pain does not radiate. Pain currently is 8 out of 10 on a pain scale. Quality of pain is described as pressure, Pain began 1 day ago. Neuro: Level of Consciousness is awake, alert, obeys commands, Oriented to person, place, time, situation, Appropriate for age. Cardiovascular: Reports chest pain, Heart tones S1 S2 Rhythm is regular. Respiratory: Airway is patent Respiratory effort is even, unlabored, Respiratory pattern is regular, symmetrical, Breath sounds are clear bilaterally. GI: Abdomen is flat, non-distended, Reports nausea, vomiting. : No signs and/or symptoms were reported regarding the genitourinary system. EENT: No signs and/or symptoms were reported regarding the EENT system. Derm: Skin is intact, is healthy with good turgor, Skin is pink, warm \T\ dry. normal. Musculoskeletal: Circulation, motion, and sensation intact. 05:26 Reassessment: Patient appears in no apparent distress at this time. No changes from previously documented assessment. Patient and/or family updated on plan of care and expected duration. Pain level reassessed. Patient is alert, oriented x 3, equal unlabored respirations, skin warm/dry/pink. Pt still with no Iv access, Charge Nurse Dafne unable to get Iv access thru Ultrasound. 05:50 Reassessment: Lab Phlebo notified for blood draw was also unsuccesful. wh 06:10 Reassessment: School Childcare Attendant was able to get Iv access but no blood, charge nurse was wh notified. 06:25 Reassessment: Patient appears in no apparent distress at this time. No changes from previously documented assessment. Patient and/or family updated on plan of care and expected duration. Pain level reassessed. Patient is alert, oriented x 3, equal unlabored respirations, skin warm/dry/pink. MD unsuccessful to get arterial blood, RT was notified. 06:35 Reassessment: Patient is alert/active/playful, equal unlabored respirations, skin wh warm/dry/pink. Lab Phlebo able to get blood work, notofied. 08:36 Reassessment: Patient appears in no apparent distress at this time. Patient and/or em family updated on plan of care and expected duration. Pain level reassessed. Patient is alert, oriented x 3, equal unlabored respirations, skin warm/dry/pink. rates pain 8/10. 10:00 Reassessment: Patient appears in no apparent distress at this time. metoprolol not em given, BP 106/78 HR 78. 11:30 Reassessment: Patient appears in no apparent distress at this time. Patient and/or em family updated on plan of care and expected duration. Pain level reassessed. Patient is alert, oriented x 3, equal unlabored respirations, skin warm/dry/pink. Vital Signs: 04:30 BP 143 / 70; Pulse 81; Resp 18; Temp 98.4; Pulse Ox 100% ; Weight 99.79 kg; Height 5 wh ft. 9 in. (175.26 cm); Pain 8/10; 05:26 BP 126 / 111; Pulse 81; Resp 18; Pulse Ox 97% ; 06:45 BP 133 / 107; Pulse 83; Resp 18; Pulse Ox 99% on R/A; wh 07:00 BP 126 / 74; Pulse 82; Resp 18; Pulse Ox 99% on R/A; Pain 10/10; em 08:00 BP 130 / 87; Pulse 85; Resp 18; Pulse Ox 100% on R/A; Pain 10/10; em 08:20 BP 138 / 67; Pulse 99; Resp 22; Pulse Ox 99% on R/A; Pain 10/10; em 08:32 BP 130 / 82; Pulse 98; Resp 20; Pulse Ox 100% on R/A; Pain 8/10; em 09:00 BP 142 / 65; Pulse 93; Resp 16; Pulse Ox 99% on R/A; em 10:03 BP 106 / 78; Pulse 80; Resp 18; Pulse Ox 97% on R/A; em 11:52 BP 119 / 60; Pulse 82; Resp 18; Temp 98.0(O); Pulse Ox 100% on R/A; Pain 8/10; em 04:30 Body Mass Index 32.49 (99.79 kg, 175.26 cm) ED Course: 04:19 Patient arrived in ED. cl3 04:32 Luis E Kenyon is Primary Nurse. wh 04:32 Gibson Young MD is Attending Physician. tw4 04:40 Patient maintains SpO2 saturation greater than 95% on room air. wh 04:45 Patient has correct armband on for positive identification. Placed in gown. Bed in low wh position. Call light in reach. Side rails up X 1. cardiac monitor on. Pulse ox on. NIBP on. 05:09 Triage completed. wh 05:17 Arm band placed on right wrist. wh 05:21 Missed attempt(s): 22 gauge in right antecubital area. Missed attempt(s): 22 gauge in lp1 left antecubital area. Using ultrasound. 05:40 XRAY Chest (1 view) In Process Unspecified. EDMS 07:28 Attending Physician role handed off by Gibson Young MD rn 07:28 Andrew Oliva MD is Attending Physician. rn 08:08 Steven Samano is Hospitalizing Provider. rn 11:54 No provider procedures requiring assistance completed. Patient admitted, IV remains in em place. Administered Medications: 06:00 Drug: Zofran (Ondansetron) 4 mg Route: PO; 07:10 Follow up: Response: No adverse reaction em 06:46 Drug: morphine 4 mg {Note: RASS 0.} Route: IVP; Site: Other; 07:10 Follow up: Response: No adverse reaction; Pain is unchanged, physician notified em 08:23 Drug: Aspirin Chewable Tablet 324 mg Route: PO; em 08:33 Follow up: Response: No adverse reaction em 08:24 Drug: Nitroglycerin 0.4 mg Route: Sublingual; em 08:32 Follow up: Response: No adverse reaction; Marked relief of symptoms; Pain is decreased em 10:24 Not Given (Physician Discretion): Metoprolol 25 mg PO once em Outcome: 08:08 Decision to Hospitalize by Provider. rn 11:54 Admitted to Tele accompanied by tech, via stretcher, room 430, Report called to clara Lynch RN 11:54 Condition: good 11:54 Instructed on the need for admit, Demonstrated understanding of instructions. 11:57 Patient left the ED. em Signatures: Dispatcher [employer] EDByron Mcguire RN RN em Andrew Oliva MD MD rn Pena, Laura, RN RN 1 Luis E Kenyon Gibson Young MD MD tw4 Primo Mendez cl3 Corrections: (The following items were deleted from the chart) 06:56 05:26 Reassessment: Patient appears in no apparent distress at this time. No changes wh from previously documented assessment. Patient and/or family updated on plan of care and expected duration. Pain level reassessed. Patient is alert, oriented x 3, equal unlabored respirations, skin warm/dry/pink. wh
--- NOTE | 2019-10-20 08:09 | EDPHYS ---
Physician Documentation [facility] Name: Zahida Bowman Age: 54 yrs Sex: Female : 1965 Arrival Date: 10/20/2019 Time: 04:19 Bed 17 Private MD: ED Physician Andrew Oliva HPI: 10/19 06:11 This 54 yrs old Female presents to ER via Ambulatory with complaints of Chest tw4 Pain. 06:11 The patient or guardian reports chest pain that is located primarily in the anterior tw4 chest wall. Onset: just prior to arrival, today. The pain does not radiate. Associated signs and symptoms: Pertinent positives: palpitations, Pertinent negatives: abdominal pain, cough, diaphoresis, dizziness, headache, lower extremity pain, lower extremity swelling, recent travel, shortness of breath. The chest pain is described as sharp. Duration: The patient or guardian reports a single episode. Severity of pain: At its worst the pain was moderate in the emergency department the pain is unchanged. The patient has not experienced similar symptoms in the past. 07:12 Pt states that CP started after drinking a 8 oz "Redline energy drink". 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 - Social history:: Smoking status: Patient/guardian denies using. ROS: 06:11 Constitutional: Negative for fever, chills, and weight loss, Eyes: Negative for injury, tw4 pain, redness, and discharge, Respiratory: Negative for shortness of breath, cough, wheezing, and pleuritic chest pain, Abdomen/GI: Negative for abdominal pain, nausea, vomiting, diarrhea, and constipation, Back: Negative for injury and pain. 06:11 MS/Extremity: Negative for injury and deformity, Skin: Negative for injury, rash, and discoloration. 06:11 Cardiovascular: Positive for chest pain, Negative for edema, orthopnea, palpitations, paroxysmal nocturnal dyspnea. Exam: 06:11 Constitutional: This is a well developed, well nourished patient who is awake, alert, tw4 and in no acute distress. Head/Face: Normocephalic, atraumatic. Chest/axilla: Normal chest wall appearance and motion. Nontender with no deformity. No lesions are appreciated. Cardiovascular: Regular rate and rhythm with a normal S1 and S2. No gallops, murmurs, or rubs. Normal PMI, no JVD. No pulse deficits. Respiratory: Lungs have equal breath sounds bilaterally, clear to auscultation and percussion. No rales, rhonchi or wheezes noted. No increased work of breathing, no retractions or nasal flaring. Abdomen/GI: Soft, non-tender, with normal bowel sounds. No distension or tympany. No guarding or rebound. No evidence of tenderness throughout. Back: No spinal tenderness. No costovertebral tenderness. Full range of motion. MS/ Extremity: Pulses equal, no cyanosis. Neurovascular intact. Full, normal range of motion. Neuro: Awake and alert, GCS 15, oriented to person, place, time, and situation. Cranial nerves II-XII grossly intact. Motor strength 5/5 in all extremities. Sensory grossly intact. Cerebellar exam normal. Normal gait. Vital Signs: 04:30 BP 143 / 70; Pulse 81; Resp 18; Temp 98.4; Pulse Ox 100% ; Weight 99.79 kg; Height 5 wh ft. 9 in. (175.26 cm); Pain 8/10; 05:26 BP 126 / 111; Pulse 81; Resp 18; Pulse Ox 97% ; wh 06:45 BP 133 / 107; Pulse 83; Resp 18; Pulse Ox 99% on R/A; wh 07:00 BP 126 / 74; Pulse 82; Resp 18; Pulse Ox 99% on R/A; Pain 10/10; em 08:00 BP 130 / 87; Pulse 85; Resp 18; Pulse Ox 100% on R/A; Pain 10/10; em 08:20 BP 138 / 67; Pulse 99; Resp 22; Pulse Ox 99% on R/A; Pain 10/10; em 08:32 BP 130 / 82; Pulse 98; Resp 20; Pulse Ox 100% on R/A; Pain 8/10; em 09:00 BP 142 / 65; Pulse 93; Resp 16; Pulse Ox 99% on R/A; em 10:03 BP 106 / 78; Pulse 80; Resp 18; Pulse Ox 97% on R/A; em 11:52 BP 119 / 60; Pulse 82; Resp 18; Temp 98.0(O); Pulse Ox 100% on R/A; Pain 8/10; em 04:30 Body Mass Index 32.49 (99.79 kg, 175.26 cm) wh MDM: 04:32 Patient medically screened. tw4 08:04 Differential diagnosis: acute myocardial infarction, acute pericarditis, anxiety, rn coronary artery disease gastroesophageal reflux disease (GERD), pleurisy, pneumothorax, stable angina, unstable angina. The patient was given aspirin in the Emergency Department. Data reviewed: vital signs, nurses notes, lab test result(s), EKG, radiologic studies, plain films, and as a result, I will admit patient. Counseling: I had a detailed discussion with the patient and/or guardian regarding: the historical points, exam findings, and any diagnostic results supporting the discharge/admit diagnosis, lab results, radiology results, the need for further work-up and treatment in the hospital. Response to treatment: the patient's symptoms have mildly improved after treatment, and as a result, I will admit patient. Admission orders: after a detailed discussion of the patient's condition and case, the admit orders are written by me. ED course: Pt with neg trop, ECG with inverted twaves inferior leads, mild st depression septal leads, will admit for chest pain w/u and rule out.. 10/19 04:33 Order name: Basic Metabolic Panel; Complete Time: 07:10/19 04:33 Order name: CBC with Diff; Complete Time: :10/19 04:33 Order name: LFT's; Complete Time: 07:10/19 04:33 Order name: Magnesium; Complete Time: :10/19 04:33 Order name: NT PRO-BNP; Complete Time: 07:28 10/19 04:33 Order name: PT-INR; Complete Time: 07:28 10/19 04:33 Order name: Troponin (emerg Dept Use Only); Complete Time: 07:28 10/19 04:32 Order name: XRAY Chest (1 view); Complete Time: 07:28 10/19 04:32 Order name: EKG; Complete Time: 04:34 10/19 04:32 Order name: Cardiac monitoring; Complete Time: 05:25 10/19 04:32 Order name: EKG - Nurse/Tech; Complete Time: 05:25 10/19 04:32 Order name: IV Saline Lock; Complete Time: 07:05 10/19 04:32 Order name: Labs collected and sent; Complete Time: 05:25 10/19 04:32 Order name: O2 Per Protocol; Complete Time: 05:25 10/19 04:32 Order name: O2 Sat Monitoring; Complete Time: 05: 10/19 04:58 Order name: Urine Drug Screen; Complete Time: 11:48 10/19 04:33 Order name: Cardiac monitoring; Complete Time: 05:25 10/19 04:33 Order name: EKG - Nurse/Tech; Complete Time: 05:25 10/19 04:33 Order name: IV Saline Lock; Complete Time: 06:58 10/19 04:33 Order name: Labs collected and sent; Complete Time: 05:25 10/19 04:33 Order name: O2 Per Protocol; Complete Time: 05:25 10/19 04:33 Order name: O2 Sat Monitoring; Complete Time: 05:25 tw4 EC:11 Rate is 91 beats/min. Rhythm is regular. QRS [place] is Normal. CA interval is normal. QRS tw4 interval is normal. QT interval is normal. No Q waves. T waves are Inverted in leads V3, V4. No ST changes noted. Clinical impression: NSR w/ Non-specific ST/T Changes. Interpreted by me. Reviewed by me. Administered Medications: 06:00 Drug: Zofran (Ondansetron) 4 mg Route: PO; 07:10 Follow up: Response: No adverse reaction em 06:46 Drug: morphine 4 mg {Note: RASS 0.} Route: IVP; Site: Other; 07:10 Follow up: Response: No adverse reaction; Pain is unchanged, physician notified em 08:23 Drug: Aspirin Chewable Tablet 324 mg Route: PO; em 08:33 Follow up: Response: No adverse reaction em 08:24 Drug: Nitroglycerin 0.4 mg Route: Sublingual; em 08:32 Follow up: Response: No adverse reaction; Marked relief of symptoms; Pain is decreased em 10:24 Not Given (Physician Discretion): Metoprolol 25 mg PO once em Disposition: 10/20/19 08:08 Hospitalization ordered by Steven Samano for Observation. Preliminary diagnosis is Chest pain, unspecified. - Bed requested for Telemetry/MedSurg (observation). - Status is Observation. em - Condition is Stable. - Problem is new. - Symptoms have improved. Signatures: Dispatcher [employer] EDMS Glendy Perdomo RN RN dw Munoz, Edgar, RN RN em Nieto, Roman, MD MD rn [place]alo, Winsy Gibson Young MD MD tw4 Corrections: (The following items were deleted from the chart) 05:06 04:33 CBC+H.LAB.BRZ ordered. EDMS EDMS 05:06 04:33 PROTIME (+INR)+COAG.LAB.BRZ ordered. EDMS EDMS 05:07 04:33 BASIC METABOLIC PANEL+C.LAB.BRZ ordered. EDMS EDMS 05:07 04:33 HEPATIC FUNCTION+C.LAB.BRZ ordered. EDMS EDMS 05:07 04:33 MAGNESIUM+C.LAB.BRZ ordered. EDMS EDMS 05:07 04:33 PROBNP+C.LAB.BRZ ordered. EDMS EDMS 05:07 04:33 TROPONIN (EMERG DEPT USE ONLY)+C.LAB.BRZ ordered. EDNE EDMS 05:12 04:34 Chest Single View+RAD.RAD.BRZ ordered. EDNE EDMS 11:06 08:08 Hospitalization Ordered by Steven Samano for Observation. Preliminary diagnosis dw is Chest pain, unspecified. Bed requested for Telemetry/MedSurg (observation). Status is Observation. Condition is Stable. Problem is new. Symptoms have improved. rn 11:57 11:06 10/20/2019 08:08 Hospitalization Ordered by Steven Samano for Observation. em Preliminary diagnosis is Chest pain, unspecified. Bed requested for Telemetry/MedSurg (observation). Status is Observation. Condition is Stable. Problem is new. Symptoms have improved. dw
[2019-10-20] MEDS ORDERED: NITROGLYCERIN 0.4 MG/TAB SL ONE (08:13)
[2019-10-20] MEDS ORDERED: ASPIRIN 81 MG CHEWABLE TABLET ONE (08:13)
[2019-10-20 08:43] LABS: Barbiturates NEGATIVE (NEGATIVE); Benzodiazepines POSITIVE (NEGATIVE); Cocaine NEGATIVE (NEGATIVE); METHAMPHETAM POSITIVE (NEGATIVE); Methadone NEGATIVE (NEGATIVE); Opiates POSITIVE (NEGATIVE); Phencyclidine NEGATIVE (NEGATIVE); THC Cannibis NEGATIVE (NEGATIVE)
[2019-10-20] MEDS ORDERED: METOPROLOL TAR 25 MG TAB ONE (09:59)
--- NOTE | 2019-10-20 10:13 | P.HP ---
Certification for Inpatient Patient admitted to: Observation With expected LOS: <2 Midnights Practitioner: I am a practitioner with admitting privileges, knowledge of patient current condition, hospital course, and medical plan of care. Services: Services provided to patient in accordance with Admission requirements found in Title 42 Section 412.3 of the Code of Federal Regulations Patient History Date of Service: 10/20/19 Reason for admission: Chest pain History of Present Illness: 54-year-old woman with a history of LA, COPD, CVA, recent history of DVT on Xarelto anticoagulation present to the ED with a complaint of chest pain and palpitations and sweating. Patient reports drinking a whole bottle of Redline which is an energy drink containing a substantial amount of caffeine. Patient also reports insomnia and headaches. The patient stated the chest pain persisted throughout the night. She was still experiencing chest pain when I saw her in the ED. Her initial troponin is negative. EKG shows sinus rhythm and nonspecific ST- T changes. Chest x-ray is unremarkable. Patient is placed under observation for chest pain rule out and also for supportive measures for Caffeine toxicity. Allergies benzonatate [From Tessalon Perles] Allergy (Verified 10/20/19 14:10) Itching hydromorphone [From Dilaudid] Allergy (Verified 10/20/19 12:09) Itching iodine Allergy (Verified 10/20/19 14:10) Unknown IV contrast Allergy (Mild, Uncoded 10/20/19 14:10) Itching pcn Allergy (Uncoded 11/23/17 14:20) Unknown Home Medications: Budesonide/Formoterol Fumarate [Symbicort 160-4.5 Mcg Inhaler] 2 puff IN BID Fluticasone [Flonase 50MCG Nasal [place]*] 2 spray IN DAILY 10/20/19 Hydrocodone/Acetaminophen [[place] 10-325 Tablet] 1 tab PO Q4HP PRN 10/20/19 Ibuprofen 1 tab PO TID 10/20/19 Insulin Aspart [Novolog Flexpen] 3 unit SQ TID 10/20/19 Montelukast [Singulair*] 10 mg PO DAILY 10/20/19 Ondansetron HCl [Zofran] 1 tab PO DAILY PRN 10/20/19 Rivaroxaban [Xarelto*] 20 mg PO DAILY 10/20/19 - Past Medical/Surgical History -: LA -: DM type 2 -: CVA -: COPD -: Back Surgery, hysterectomy - Family History Mother -: Diabetes - Social History Smoking Status: Never smoker Alcohol use: No CD- Drugs: No Place of Residence: Home Review of Systems Other: Except as documented, all other systems reviewed and negative. Physical Examination - Physical Exam General: Alert, In no apparent distress, Oriented x3 HEENT: Normocephalic, Mucous membr. moist/pink, Sclerae nonicteric Neck: Supple, JVD not distended Respiratory: Clear to auscultation bilaterally, Normal air movement Cardiovascular: No edema, Normal pulses, Regular rate/rhythm, Normal S1 S2 Capillary refill: <2 Seconds Gastrointestinal: Normal bowel sounds, Soft and benign, Non-distended, No tenderness Musculoskeletal: No swelling, No erythema Integumentary: No rashes Neurological: Normal speech, Normal strength at 5/5 x4 extr, Cranial nerves 3- 12 intact - Studies Laboratory Data (last 24 hrs) 10/20/19 06:51: PT 16.2 H, INR 1.39 10/20/19 06:32: WBC 8.0, Hgb 13.2, Hct 38.8, Plt Count 316 10/20/19 06:32: Sodium 138, Potassium 3.4 L, BUN 10, Creatinine 1.02, Glucose 115 H, Magnesium 2.1, Total Bilirubin 0.6, AST 29, ALT 34, Alkaline Phosphatase 113 10/20/19 04:32: PT Cancelled, INR Cancelled 10/20/19 04:32: WBC Cancelled, Hgb Cancelled, Hct Cancelled, Plt Count Cancelled 10/20/19 04:32: Sodium Cancelled, Potassium Cancelled, BUN Cancelled, Creatinine Cancelled, Glucose Cancelled, Magnesium Cancelled, Total Bilirubin Cancelled, AST Cancelled, ALT Cancelled, Alkaline Phosphatase Cancelled Assessment and Plan - Problems (Diagnosis) (1) Chest pain Current Visit: Yes Status: Acute (2) Caffeine adverse reaction Current Visit: Yes Status: Acute (3) History of DVT (deep vein thrombosis) Current Visit: Yes Status: Chronic (4) CAD (coronary artery disease) Current Visit: Yes Status: Chronic (5) DM type 2 (diabetes mellitus, type 2) Current Visit: Yes Status: Chronic - Plan Place under observation Trend troponin ASA, metoprolol Serial EKG Check lipid panel Supportive measures with IV hydration Ativan p.r.n. for palpitation, anxiety and restlessness. Insulin sliding scale for glucose management Continue Xarelto for history of DVT. - Advance Directives Does patient have a Living Will: No Does patient have a Durable POA for Healthcare: No
[2019-10-20] MEDS ORDERED: ACETAMINOPHEN 500 MG TAB PO PRN (11:34)
[2019-10-20] MEDS ORDERED: LORazepam 2 MG/ML VIAL IV PRN (11:34)
[2019-10-20] MEDS: INSULIN -REGULAR HUMAN 50 UNIT/0.5 ML ML SQ SCH ×3 (11:34→19:56)
[2019-10-20 12:33] VITALS: BMI 32.5
[2019-10-20] MEDS: NA CHLORIDE 0.9% 1,000 ML IV SCH ×2 (12:39→19:52)
[2019-10-20] MEDS: MORPHINE 2 MG/ML SYR IV PRN ×3 (12:51→22:27)
[2019-10-20] MEDS ORDERED: HYDROCODONE/APAP 10/325 TAB PO PRN (15:39)
[2019-10-20] MEDS ORDERED: HOME MED [FLUTICASONE 50MCG NASAL SPRAY] NAS SCH (16:45)
[2019-10-20] MEDS: ONDANSETRON 4 MG/2 ML VIAL IV PRN ×2 (17:40→22:49)
[2019-10-20] MEDS: HOME MED 1 EA UNK (Budesonide/Formoterol Fumarate [Symbicort 160-4.5 Mcg Inhaler] 2 PUFF) IN SCH (19:52)
--- NOTE | 2019-10-20 23:00 | EKG ---
Test Date: 2019-10-20 Test Time: 14:39:21 Pattern Changer: A MEASUREMENT RESULTS: Intervals: Rate: 81 AL: 152 QRSD: 98 QT: 410 QTc: 476 [place]: P: 43 AL: 152 QRS: 55 T: -10 INTERPRETIVE STATEMENTS: Normal sinus rhythm Nonspecific ST and T wave abnormality Prolonged QT Abnormal ECG Compared to ECG 10/20/2019 04:27:17 Right-axis deviation no longer present Possible ischemia no longer present ST (T wave) deviation still present Electronically Signed On 10-20-19 22:59:36 CDT by Kayden Branham
[2019-10-21] MEDS ORDERED: PHENOL 1.4% ORAL SPRAY 180ML MM PRN (00:02)
[2019-10-21] MEDS: NA CHLORIDE 0.9% 1,000 ML IV SCH (02:22)
[2019-10-21] MEDS: MORPHINE 2 MG/ML SYR IV PRN ×2 (02:23→06:52)
[2019-10-21 04:30] LABS: Potassium 3.9 mmol/L (3.5-5.1)
[2019-10-21 04:43] VITALS: O2SAT 96
[2019-10-21] MEDS: ONDANSETRON 4 MG/2 ML VIAL IV PRN (06:52)
[2019-10-21] MEDS: INSULIN -REGULAR HUMAN 50 UNIT/0.5 ML ML SQ SCH ×2 (07:30→11:30)
[2019-10-21] MEDS ORDERED: RIVAROXABAN 10 MG TABLET PO SCH (08:00)
[2019-10-21] MEDS: HOME MED 1 EA UNK (Budesonide/Formoterol Fumarate [Symbicort 160-4.5 Mcg Inhaler] 2 PUFF) IN SCH (08:01)
[2019-10-21] MEDS ORDERED: MONTELUKAST 10 MG TAB PO SCH (09:00)
[2019-10-21] MEDS ORDERED: ASPIRIN EC 81 MG TAB PO SCH (09:00)
[2019-10-21 12:13] VITALS: BP 111/64; TEMP 98.2
--- NOTE | 2019-10-21 13:24 | EKG ---
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
--- NOTE | 2019-10-21 13:25 | EKG ---
Test Date: 2019-10-21 Test Time: 01:28:46 Hydro Operator: RT-O MEASUREMENT RESULTS: Intervals: Rate: 82 [place]: 152 QRSD: 92 QT: 396 QTc: 462 [place]: P: 47 [place]: 152 QRS: 57 T: -4 INTERPRETIVE STATEMENTS: Normal sinus rhythm ST & T wave abnormality, consider anterolateral ischemia Prolonged QT Abnormal ECG Compared to ECG 10/20/2019 14:39:21 Possible ischemia now present ST (T wave) deviation still present Electronically Signed On 10-21-19 13:24:23 CDT by Kayden Branham
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
== END 2019-10-21 12:01 | disposition home or self-care (01) ==
LOC: ER 04:17 → ERHOLD 10:02 → 4TH 11:34
PROVIDERS: ADMIT Internal Medicine; ATTEND Family Medicine
DX: R07.9 Chest pain, unspecified (principal); F15.10 Other stimulant abuse, uncomplicated; E11.65 Type 2 diabetes mellitus with hyperglycemia; E87.6 Hypokalemia; R94.31 Abnormal electrocardiogram [ECG] [EKG]; I25.10 Atherosclerotic heart disease of native coronary artery without angina pectoris; I25.2 Old myocardial infarction; J44.9 Chronic obstructive pulmonary disease, unspecified; E66.9 Obesity, unspecified; Z68.32 Body mass index [BMI] 32.0-32.9, adult; Z79.01 Long term (current) use of anticoagulants; Z79.4 Long term (current) use of insulin; Z79.51 Long term (current) use of inhaled steroids; Z79.899 Other long term (current) drug therapy; Z86.718 Personal history of other venous thrombosis and embolism; Z86.73 Personal history of transient ischemic attack (TIA), and cerebral infarction without residual deficits
CPT/HCPCS: 93005 ×4; 87070; 85025; 80048 ×2; 36415; 83735; 87205; 85610; 82947 ×5; 80076; 80307 ×8; 84484 ×3; 83880; 71045; 94760 ×2; 96374; 99285; J2270 ×5; J7030 ×3; J2405 ×3; G0378 ×3

== ENCOUNTER → 2023-10-24 | Emergency (ER) | payer OTHER ==
--- NOTE | 2023-10-24 09:12 | RAD REPORT ---
EXAM DESCRIPTION: CT - Head Brain Wo Cont - 10/24/2023 9:03 am CLINICAL HISTORY: Altered mental status COMPARISON: Head Brain Wo Cont dated 06/29/2018 TECHNIQUE: All CT scans are performed using dose optimization technique as appropriate and may inclu de automated exposure control or mA/KV adjustment according to patient size. FINDINGS: No intracranial hemorrhage, hydrocephalus or extra-axial fluid collection.No areas of brai n edema or evidence of midline shift. Empty sella, typically a normal variant. The paranasal sinuses and mastoids are clear. The calvarium is intact. IMPRESSION: No acute intracranial abnormality.
[2023-10-24 09:26] LABS: Albumin 4.3 g/dL (3.4-5.0); Albumin/Globulin Ratio 1.2 (1.1-1.8); Anion Gap 10.1 mEq/L (5.0-15.0); Bilirubin Direct 0.1 mg/dL (0-0.2); Bilirubin Indirect, Calculated 0.4 mg/dL (0.2-0.8); Bilirubin Total 0.5 mg/dL (0.2-1.0); Globulin 3.5 g/dL (2.3-3.5); Magnesium 2.2 mg/dL (1.6-2.4); Potassium 3.1 mEq/L (3.5-5.1); Protein, Total 7.8 g/dL (6.4-8.2)
--- NOTE | 2023-10-24 10:24 | ER ---
Nurse's Notes [facility] Name: Zahida Bowman Age: 58 yrs Sex: Female : 1965 Arrival Date: 10/24/2023 Time: 07:59 Bed 5 Private MD: Diagnosis: Altered mental status Presentation: 10/23 08:11 Chief complaint: Patient's son or daughter states: "She was given Demerol at [address] yesterday, had a seizure last night after being discharged and has been a bit incoherent ever since". 08:15 Coronavirus screen: At this time, the client does not indicate any symptoms associated [facility] with coronavirus-19. Ebola Screen: No symptoms or risks identified at this time. Onset: The symptoms/episode began/occurred 1 day(s) ago. Anaphylaxis evaluation. Initial Sepsis Screen: Does the patient meet any 2 criteria? No. Patient's initial sepsis screen is negative. Does the patient have a suspected source of infection? No. Patient's initial sepsis screen is negative. Risk Assessment: Do you want to hurt yourself or someone else? Patient reports no desire to harm self or others. Onset of symptoms was October 24, 2023. 08:15 Method Of Arrival: Ambulatory rs5 08:15 Acuity: GA 2 kb3 Historical: - Allergies: 08:17 Demerol; rs5 08:17 Dilaudid; rs5 08:17 Iodine; rs5 08:17 IV contrast; rs5 08:17 pcn; rs5 08:17 Tessalon Perles; rs5 08:17 PENICILLINS; rs5 08:17 seafood; rs5 - PMHx: 08:17 COPD; MS; Seizures; Diabetes - NIDDM; stroke; rs5 - Immunization history:: Adult Immunizations unknown. - Social history:: Smoking status: . Screenin:18 [facility] ED Fall Risk Assessment (Adult) History of falling in the last 3 months, rs5 including since admission No falls in past 3 months (0 pts) Confusion or Disorientation No (0 pts) Intoxicated or Sedated No (0 pts) Impaired Gait No (0 pts) Mobility Assist Device Used No (0 pt) Altered Elimination No (0 pt) Score/Fall Risk Level 0 - 2 = Low Risk Oriented to surroundings, Maintained a safe environment. Abuse screen: Denies injuries from another. Nutritional screening: No deficits noted. Tuberculosis screening: No symptoms or risk factors identified. Assessment: 08:05 General: Appears in no apparent distress. uncomfortable, Behavior is cooperative, rs5 anxious. Pain: Denies pain. Neuro: Level of Consciousness is awake, alert, obeys commands, Oriented to person, place, time, situation, Brick Baker are equal bilaterally Moves all extremities. Gait is steady, Speech is normal, Facial symmetry appears normal, Pupils are PERRLA, Pupil Size: 3 mm Intact. Cardiovascular: Patient's skin is warm and dry. Rhythm is regular. Respiratory: Airway is patent Respiratory effort is even, unlabored, Breath sounds are clear bilaterally. 08:05 GI: Abdomen is round non-distended, Abd is soft and non tender X 4 quads. : No signs rs5 and/or symptoms were reported regarding the genitourinary system. EENT: No signs and/or symptoms were reported regarding the EENT system. Derm: Skin is intact, Skin is pink, warm \\T\\ dry. Musculoskeletal: Range of motion: intact in all extremities. 09:01 Reassessment: Pt to CT via stretcher . aa5 10:15 Reassessment: No changes from previously documented assessment. rs5 10:15 Reassessment: Pt refusing new IV access or recollect on blood. Received and sent urine ld1 at this time. Pt states "I do not care if we do an IV or get new blood, I am tired and I want to go home right now. I do not want you to run anymore test on me." Pt signed AMA form and left before talking with provider. Provider notified of patient leaving AMA. 10:20 Reassessment: Pt billy has no IV access. rs5 Vital Signs: 08:15 BP 135 / 70; Pulse 80; Resp 18; Temp 97.8(O); Pulse Ox 98% on 2 lpm NC; rs5 08:30 BP 137 / 75; Pulse 77; Resp 18; Pulse Ox 99% on R/A; rs5 10:05 BP 130 / 74; Pulse 81; Resp 17; Pulse Ox 98% on R/A; rs5 ED Course: 08:02 Patient arrived in ED. mg5 08:11 Tanmay Balderas, RN is Primary Nurse. rs5 08:15 Deven Manuel MD is Attending Physician. sp3 08:17 Triage completed. rs5 08:18 Patient has correct armband on for positive identification. Bed in low position. Call rs5 light in reach. Side rails up X2. 08:18 No provider procedures requiring assistance completed. rs5 08:40 Missed attempt(s): 24 gauge in right upper arm. Bleeding controlled, band aid applied, aa5 catheter tip intact. 08:59 Initial lab(s) drawn, by me, sent to lab. aa5 08:59 Missed attempt(s): 24 gauge in left forearm. Bleeding controlled, band aid applied, aa5 catheter tip intact. 09:04 CT Head Brain wo Cont In Process Unspecified. EDMS Administered Medications: No medications were administered Medication: 08:19 VIS not applicable for this client. rs5 Outcome: 10:23 AMA AMA form signed rs5 10:23 Condition: stable 10:23 Instructed on follow up and referral plans. Demonstrated understanding of follow-up care, 10:27 Patient left the ED. ld1 Signatures: Dispatcher [employer] EDMS Sarah Lucero RN RN aa5 Carine Agudelo RN RN ld1 Deven Manuel MD MD sp3 Richa Elizalde RN RN kb3 Tanmay Balderas RN RN rs5 Christa Kelly mg5 Corrections: (The following items were deleted from the chart) 08:18 08:11 Chief complaint: Patient's son or daughter states: "She was given Demerol at [address] yesterday, had a seizure and has been a bit incoherent ever since" rs5 08:18 08:17 PSHx: stomach surgery (stroke); [place] [id number] 08:20 08:15 Pulse 80bpm; Resp 18bpm; Pulse Ox 98% 2 lpm Nasal Cannula; [place] [id number] 10/24 08:16 03/ 08:15 Acuity: GA 3 [facility] kb3
--- NOTE | 2023-10-24 10:24 | EDPHYS ---
Physician Documentation [facility] Name: Zahida Bowman Age: 58 yrs Sex: Female : 1965 Arrival Date: 10/24/2023 Time: 07:59 Bed 5 Private MD: ED Physician Deven Manuel HPI: 10/23 08:33 This 58 yrs old Female presents to ER via Ambulatory with complaints of Altered mental sp3 status. 08:33 58-year-old female with a history of diabetes, prior MA, COPD, prior seizures not sp3 currently on antiepileptic treatment, prior stroke (self defined) who presents here for chief complaint altered mental status. 3 days ago patient states that she went to [facility] and was treated for cutaneous abscess where she received Demerol which she states she is allergic to. After she went home that day, she states that she "had a seizure" and had lots of vomiting. Over the last 2 days her son who is with her states that she "has not been the same" with differences in speech and mannerisms. No speech deficits or focal neurological deficits reported when asked. Review of systems otherwise negative for headache, facial pain, neck pain, chest pain, shortness of breath, abdominal pain, diarrhea, syncope, near syncope, rash, fever, known sick contacts, significant travel history, or any other signs or symptoms on ROS at this time.. Historical: - Allergies: 08:17 Demerol; rs5 08:17 Dilaudid; rs5 08:17 Iodine; rs5 08:17 IV contrast; rs5 08:17 pcn; rs5 08:17 Tessalon Perles; rs5 08:17 PENICILLINS; rs5 08:17 seafood; rs5 - PMHx: 08:17 COPD; MA; Seizures; Diabetes - NIDDM; stroke; rs5 - Immunization history:: Adult Immunizations unknown. - Social history:: Smoking status: . ROS: 08:36 Constitutional: Negative for fever, chills, and weight loss, Eyes: Negative for injury, sp3 pain, redness, and discharge, ENT: Negative for injury, pain, and discharge, Neck: Negative for injury, pain, and swelling, Cardiovascular: Negative for chest pain, palpitations, and edema, Respiratory: Negative for shortness of breath, cough, wheezing, and pleuritic chest pain, Back: Negative for injury and pain, : Negative for injury, bleeding, discharge, and swelling, MS/Extremity: Negative for injury and deformity, Skin: Negative for injury, rash, and discoloration, Psych: Negative for depression, anxiety, suicide ideation, homicidal ideation, and hallucinations, Allergy/Immunology: Negative for hives, rash, and allergies, Endocrine: Negative for neck swelling, polydipsia, polyuria, polyphagia, and marked weight changes, Hematologic/Lymphatic: Negative for swollen nodes, abnormal bleeding, and unusual bruising, 08:36 All other systems are negative, Exam: 08:37 Constitutional: This is a well developed, well nourished patient who is awake, alert, sp3 and in no acute distress. Head/Face: Normocephalic, atraumatic. Eyes: Pupils equal round and reactive to light, extra-ocular motions intact. Lids and lashes normal. Conjunctiva and sclera are non-icteric and not injected. Cornea within normal limits. Periorbital areas with no swelling, redness, or edema. ENT: Nares patent. No nasal discharge, no septal abnormalities noted. External auditory canals are clear. Oropharynx with no redness, swelling, or masses, exudates, or evidence of obstruction, uvula midline. Mucous membranes moist. Neck: Trachea midline, no thyromegaly or masses palpated, and no cervical lymphadenopathy. Supple, full range of motion without nuchal rigidity, or vertebral point tenderness. No Meningismus. Chest/axilla: Normal chest wall appearance and motion. Nontender with no deformity. No lesions are appreciated. Cardiovascular: Regular rate and rhythm with a normal S1 and S2. No gallops, murmurs, or rubs. Normal PMI, no JVD. No pulse deficits. Respiratory: Lungs have equal breath sounds bilaterally, clear to auscultation and percussion. No rales, rhonchi or wheezes noted. No increased work of breathing, no retractions or nasal flaring. Abdomen/GI: Soft, non-tender, with normal bowel sounds. No distension or tympany. No guarding or rebound. No evidence of tenderness throughout. Back: No spinal tenderness. No costovertebral tenderness. Full range of motion. Skin: Warm, dry with normal turgor. Normal color with no rashes, no lesions, and no evidence of cellulitis. MS/ Extremity: Pulses equal, no cyanosis. Neurovascular intact. Full, normal range of motion. Psych: Awake, alert, with orientation to person, place and time. Behavior, mood, and affect are within normal limits. 08:37 Neuro: Normal neurological exam with exception of strange speech pattern with pauses in between words. There is no dysarthria or slurred speech. Mental status is normal., Vital Signs: 08:15 BP 135 / 70; Pulse 80; Resp 18; Temp 97.8(O); Pulse Ox 98% on 2 lpm NC; rs5 08:30 BP 137 / 75; Pulse 77; Resp 18; Pulse Ox 99% on R/A; rs5 10:05 BP 130 / 74; Pulse 81; Resp 17; Pulse Ox 98% on R/A; rs5 MDM: 08:15 Patient medically screened. sp3 08:38 Data reviewed: vital signs, nurses notes, lab test result(s), radiologic studies. ED sp3 course: 58-year-old female with extensive PMH above now presents with "strange behavior". There are no focal neurological deficits and I am not highly suspicious for stroke, ischemic or hemorrhagic in nature, sepsis, shock, mass, ICH, or any other critical process. Consider electrolyte abnormality, potential recreational drug use, or other neurological process. Workup will include CT scan of the head, laboratory values, UDS and general observation. If workup is negative we will safely discharge patient home with follow-up to neurology which patient has in [place]. Vital signs are currently stable and patient is in no acute distress.. 10:22 ED course: CT scan of the head is negative and initial laboratory values demonstrate sp3 mild hypokalemia. Urine drug screen is still pending. Patient very anxious and walked out after talking to the nurse. I was in another room and was not able to perform an informed discharge. Patient left AGAINST MEDICAL ADVICE.. 10/23 08:31 Order name: Basic Metabolic Panel; Complete Time: 10: sp3 10/23 08:31 Order name: Hepatic Function; Complete Time: 10: sp3 10/23 08:31 Order name: Magnesium; Complete Time: 10: sp3 10/23 10:13 Order name: UDS aa5 10/23 08:31 Order name: CT Head Brain wo Cont; Complete Time: 09:18 sp3 10/23 08:31 Order name: IV Saline Lock; Complete Time: 09:00 sp3 10/23 08:31 Order name: Labs collected and sent; Complete Time: 09:00 sp3 10/23 08:31 Order name: NPO; Complete Time: 09:00 sp3 Administered Medications: No medications were administered Disposition Summary: 10/24/23 10:23 Left Against Medical Advice Notes: Location: Home sp3 Problem: an ongoing problem sp3 Symptoms: are unchanged sp3 Condition: Stable sp3 Diagnosis - Altered mental status sp3 Followup: sp3 - With: Private Physician - When: Upon discharge from the Emergency Department - Reason: Continuance of care Discharge Instructions: - Discharge Summary Sheet ld1 Forms: - Family Work Release ld1 Signatures: Dispatcher [employer] Grey Cash ds4 Deven Manuel MD MD sp3 Tanmay Balderas RN RN rs5 Corrections: (The following items were deleted from the chart) 08:18 08:17 PSHx: stomach surgery (stroke); rs5 rs5
[2023-10-24 10:59] VITALS: BP 130/74; TEMP 97.8; O2SAT 98
[2023-10-24 12:26] LABS: Barbiturates NEGATIVE (NEGATIVE); Benzodiazepines POSITIVE (NEGATIVE); Cocaine NEGATIVE (NEGATIVE); METHAMPHETAM NEGATIVE (NEGATIVE); Methadone NEGATIVE (NEGATIVE); Opiates NEGATIVE (NEGATIVE); Phencyclidine NEGATIVE (NEGATIVE); THC Cannibis NEGATIVE (NEGATIVE)
== END ==
LOC: ER 07:59
DX: R41.82 Altered mental status, unspecified (principal); Z88.0 Allergy status to penicillin; Z88.5 Allergy status to narcotic agent; Z88.8 Allergy status to other drugs, medicaments and biological substances; Z91.013 Allergy to seafood; Z91.041 Radiographic dye allergy status; Z91.048 Other nonmedicinal substance allergy status; Z86.73 Personal history of transient ischemic attack (TIA), and cerebral infarction without residual deficits
CPT/HCPCS: 36415; 70450; 80048; 80076; 80307; 83735; 99283